=== PATIENT | female | born 1995 | race Caucasian/White ===

== ENCOUNTER → 2017-12-09 13:51 | Outpatient (CLI) | payer OTHER, SELFPAY ==
--- NOTE | 2017-12-09 13:54 | CT_ITS ---
CT head/brain wo con HISTORY: Severe headache with blurred vision ITS.REASON: blurry vison ORDERING PHYSICIAN: Jorge Moreno PATIENT AGE: 22 years COMPARISON: None TECHNIQUE: Axial images obtained without contrast. Brain and bone windows reviewed. All CT scans at the facility use one or more dose reduction, viz: automated exposure control, ma/kV adjustment per patient size (including targeted exams where dose is matched to indication, i.e. head), or iterative reconstruction technique. FINDINGS: No midline shift, mass effect, intracranial hemorrhage, hydrocephalus, or extra-axial fluid collection is evident. The calvarium has an unremarkable appearance. No mastoid effusion. No sinus air-fluid levels.. IMPRESSION: Negative CT head without contrast. No acute finding
== END ==
PROVIDERS: PCP Nurse Practitioner Family; Visit Provider Nurse Practitioner Family
DX: H53.8 Other visual disturbances (principal); R42 Dizziness and giddiness; R51 Headache
CPT/HCPCS: 70450

== ENCOUNTER → 2018-02-26 10:15 | Outpatient (CLI) | payer OTHER, SELFPAY ==
[2018-02-26 11:06] LABS: HCG,Quantitative 0 mIU/mL
== END ==
PROVIDERS: Visit Provider Specialist
DX: Z32.00 Encounter for pregnancy test, result unknown (principal)
CPT/HCPCS: 36415; 84702

== ENCOUNTER → 2018-03-20 12:49 | Outpatient (CLI) | payer OTHER, SELFPAY ==
--- NOTE | 2018-03-20 12:49 | CA_ITS ---
Venous Exam Indications: 729.5 Pain in limb. IMPRESSIONS 1. There is no evidence of significant Reflux. 2. No evidence of deep or superficial vein thrombosis involving the left lower extremity Left lower extremity venous duplex evaluation. Doppler flow study including spectral analysis, color and valderrama scale imaging. Location: Vascular laboratory. Patient status: Outpatient. CRITICAL FINDINGS - Reported to: HAI ECHEVERRIA - Read back and verified. - 03/20/18 - 1310 - NONE Tables: Venous flow and imaging: + +-------+ + Location Overall Flow properties + +-------+ + Left common femoral Patent Normal phasicity; spontaneous; normal augmentation; compressible + +-------+ + Left saphenofemoral junction Patent Compressible + +-------+ + Left profunda femoral Patent Compressible + +-------+ + Left femoral Patent Normal phasicity; spontaneous; normal augmentation; compressible + +-------+ + Left greater saphenous Patent Normal phasicity; spontaneous; normal augmentation; compressible + +-------+ + Left popliteal Patent Normal phasicity; spontaneous; normal augmentation; compressible + +-------+ + Left posterior tibial Patent Compressible + +-------+ + Left peroneal Patent Compressible + +-------+ + Left gastrocnemius Patent Compressible + +-------+ + Left soleal Patent Compressible + +-------+ +
--- NOTE | 2018-03-20 12:54 | XR_ITS ---
EXAM: XR lumbar spine 2-3V HISTORY: ITS.REASON: low back pain ORDERING PHYSICIAN: Jorge Moreno PATIENT AGE: 22 years COMPARISON: None FINDINGS: Normal alignment. There is minimal levocurvature and straightening of the thoracolumbar lordosis. No fracture or dislocation. No lytic or blastic change. No significant degenerative change. The disc spaces are preserved. IMPRESSION: Minimal levoscoliosis with straightening of lordosis which could be due to patient positioning or muscle spasm
== END ==
PROVIDERS: PCP Emergency Medicine; Visit Provider Nurse Practitioner Family
DX: M54.5 Low back pain (principal); M79.605 Pain in left leg
CPT/HCPCS: 72100; 93971

== ENCOUNTER → 2018-04-30 11:39 | Outpatient (CLI) | payer OTHER, SELFPAY ==
[2018-04-30 12:10] LABS: HCG,Quantitative 1 mIU/mL
== END ==
PROVIDERS: Visit Provider Specialist
DX: Z32.00 Encounter for pregnancy test, result unknown (principal)
CPT/HCPCS: 36415; 84702

== ENCOUNTER → 2018-07-14 12:39 | Outpatient (CLI) | payer OTHER, SELFPAY ==
[2018-07-14 13:54] LABS: HCG,Quantitative 6744 mIU/mL
== END ==
PROVIDERS: PCP Nurse Practitioner Family; Visit Provider Obstetrics & Gynecology Reproductive Endocrinology
DX: Z32.00 Encounter for pregnancy test, result unknown (principal)
CPT/HCPCS: 36415; 84702

== ENCOUNTER → 2019-10-07 16:57 | Outpatient (CLI) | payer OTHER, SELFPAY ==
[2019-10-07 17:30] LABS: Basophils % 0.6 % (0.1-2.0); Eosinophils # 0.1 K/mm3 (0.0-0.4); Eosinophils % 1.8 % (0.1-12.0); Hematocrit 38.7 % (37.0-47.0); Hemoglobin 12.9 g/dL (12.2-16.2); Lymphocytes % 41.4 % (10-50); Mean Corpuscular HGB Conc 33.4 g/dL (31.8-35.4); Mean Corpuscular Hemoglobin 30.1 pg (27.0-31.2); Mean Corpuscular Volume 90.1 fl (81-99); Mean Platelet Volume 9.1 fl (7.4-10.4); Monocytes # 0.3 K/mm3 (0.1-1.0); Monocytes % 6.1 % (1.7-9.3); Neutrophils # 2.4 K/mm3 (1.8-7.8); Neutrophils % 50.2 % (37.0-80.0); Platelet Count 307 K/mm3 (142-424); Red Blood Count 4.29 M/mm3 (4.20-5.40); Red Cell Distribution Width 12.8 % (11.5-17.5); White Blood Count 4.7 K/mm3 (4.8-10.8)
[2019-10-07 18:31] LABS: Alanine Aminotransferase 15 U/L (12-78); Albumin Level 4.7 g/dl (3.5-5.0); Albumin/Globulin Ratio 1.7 (1.1-1.8); Alkaline Phosphatase 68 U/L (38-126); Anion Gap 16.2 mEq/L (5-15); Aspartate Amino Transferase 29 U/L (14-36); Bilirubin,Total 0.6 mg/dl (0.2-1.3); Blood Urea Nitrogen 24 mg/dl (7-17); Calcium 9.5 mg/dl (8.4-10.2); Carbon Dioxide 26 mmol/L (22.0-30.0); Chloride 101 mmol/L (98-107); Chol/HDL Ratio 2.4 (1-3.5); Cholesterol 169 mg/dl (140-200); Estimated Glomerular Filt Rate 88 ml/min (>60); GFR (African American) 107 ML/MIN (>60); Globulin 2.7 g/dL (1.3-3.2); Glucose 89 mg/dl (74-100); HDL Cholesterol 71 mg/dl (40-60); Potassium 4.2 mmoL/L (3.5-5.1); Sodium 139 mmol/L (136-145); Total Protein,Serum 7.4 g/dl (6.3-8.2); Triglycerides 49 mg/dl (30-150); VLDL Cholesterol 10 mg/dL (0-40)
[2019-10-07 18:48] LABS: 25-OH Vitamin D, Total 52.7 ng/mL (30-100)
[2019-10-07 18:49] LABS: Direct LDL Cholesterol 91.06 mg/dL (100-129)
[2019-10-07 18:51] LABS: T4 (Thyroxine) 6.9 ug/dl (5.53-11.0)
[2019-10-07 19:02] LABS: Thyroid Stimulating Hormone 0.85 uIU/mL (0.465-4.68)
== END ==
PROVIDERS: Visit Provider Physician Assistant
DX: R51 Headache (principal)
CPT/HCPCS: 80053; 80061; 82306; 84436; 84443; 85025

== ENCOUNTER → 2021-03-21 12:35 | Outpatient (CLI) | payer OTHER, SELFPAY | PROVIDERS: Visit Provider Nurse Practitioner | DX: Z20.822 Contact with and (suspected) exposure to COVID-19 (principal) | CPT/HCPCS: C9803; U0003; U0005 ==

== ENCOUNTER → 2021-07-20 13:16 | Outpatient (CLI) | payer OTHER, SELFPAY ==
[2021-07-20 17:12] LABS: Alanine Aminotransferase 21 U/L (12-78); Albumin Level 4.7 g/dl (3.5-5.0); Albumin/Globulin Ratio 1.6 (1.1-1.8); Alkaline Phosphatase 97 U/L (38-126); Aspartate Amino Transferase 35 U/L (14-36); Bilirubin,Total 0.5 mg/dl (0.2-1.3); Blood Urea Nitrogen 14 mg/dl (7-17); Calcium 9.7 mg/dl (8.4-10.2); Carbon Dioxide 28 mmol/L (22.0-30.0); Chloride 102 mmol/L (98-107); Cholesterol 178 mg/dl (140-200); Estimated Glomerular Filt Rate 87 ml/min (>60); GFR (African American) 105 ML/MIN (>60); Glucose 95 mg/dl (74-100); HDL Cholesterol 59 mg/dl (40-60); Sodium 140 mmol/L (136-145); Total Protein,Serum 7.7 g/dl (6.3-8.2); Triglycerides 81 mg/dl (30-150); VLDL Cholesterol 16 mg/dL (0-40)
[2021-07-20 17:29] LABS: 25-OH Vitamin D, Total 44.2 ng/mL (30-100)
[2021-07-20 17:42] LABS: Thyroid Stimulating Hormone 0.71 uIU/mL (0.465-4.68)
[2021-07-20 17:45] LABS: Basophils # 0.1 K/mm3 (0-0.2); Basophils % 1.6 % (0.1-2.0); Eosinophils # 0.1 K/mm3 (0.0-0.4); Eosinophils % 1.7 % (0.1-12.0); Hematocrit 39.7 % (37.0-47.0); Hemoglobin 12.9 g/dL (12.2-16.2); Lymphocytes # 2.3 K/mm3 (0.7-4.5); Lymphocytes % 31.2 % (10-50); Mean Corpuscular HGB Conc 32.5 g/dL (31.8-35.4); Mean Corpuscular Hemoglobin 27.8 pg (27.0-31.2); Mean Corpuscular Volume 85.6 fl (81-99); Mean Platelet Volume 8.7 fl (7.4-10.4); Monocytes # 0.4 K/mm3 (0.1-1.0); Neutrophils # 4.4 K/mm3 (1.8-7.8); Neutrophils % 60.6 % (37.0-80.0); Platelet Count 403 K/mm3 (142-424); Red Blood Count 4.64 M/mm3 (4.20-5.40); Red Cell Distribution Width 13.8 % (11.5-17.5); White Blood Count 7.3 K/mm3 (4.8-10.8)
== END ==
PROVIDERS: PCP Nurse Practitioner Family; Visit Provider Nurse Practitioner Family
DX: R60.9 Edema, unspecified (principal); E66.3 Overweight; Z68.32 Body mass index [BMI] 32.0-32.9, adult
CPT/HCPCS: 80053; 80061; 82306; 84436; 84443; 85025

== ENCOUNTER → 2021-07-24 08:45 | Outpatient (CLI) | payer OTHER, SELFPAY ==
--- NOTE | 2021-07-24 08:47 | CA_ITS ---
APPROVED REPORT EXAM: Comprehensive 2D, Doppler, and color-flow Echocardiogram Cancer Genetic Counselor: Toyin Perez RT(R) Ht: 5 ft 5 in Wt: 193lbs BSA: 1.95 BP: 136/86 mmHg Indications: SOA, edema in upper and lower extremities since of her son 8 months ago, HTN post . 2D Dimensions LVOT 1.98 cm (M/F) 1.5-2.5 LVEF (Glasgow's) 54.20 % F: 54 - 74 LV Volume 102.50 mL F: 46 - 106 LV Volume Index 52.56 mL/m2 F: 29 - 61 LA Volume 23.00 mL LA Volume Index 11.79 mL/m2 (M/F) 16-34 M-Mode Dimensions RVDd 2.47 cm (0.9-2.6) LA Diam 2.69 cm (1.9-4.0) LVDd 4.37 cm (3.5-5.7) Ao Diam 2.51 cm (2.0-3.7) LVDs 3.22 cm (3.5-5.7) IVSd 0.68 cm (0.6-1.1) PWd 0.68 cm (0.6-1.1) EF (Teich) 51.80% FS 26.30% EDV (Teich) 86.30 mL TAPSE 2.00 (<1.7) ESV (Teich) 41.60 mL LV Diastology E Decel Time 200.00 (160-240 msec) E/A Ratio 1.3 MED E' 12.40 (< 7 cm/sec) E'/MED E' Ratio 5.88 (>14) LAT E' 16.60 (<10 cm/sec) E/LAT E' Ratio 4.39 (>14) Mitral Valve MV E Max Bryon. 73.00 (40-130 cm/s) MV A Velocity 56.00 (40-130 cm/s) E/A Ratio 1.30 MV Decel. Time 200.00 (160-240 ms) MV PHT 59.00 ms Tricuspid Valve TR P. Velocity 244.00 cm/s RAP Estimate 10.00 mmHg RVSP 33.80 mmHg Left Ventricle Left atrium is normal size, left ventricle is normal size, there is no concentric left ventricular hypertrophy, estimated ejection fraction 55% with no regional wall motion abnormality, diastolic parameters are within normal range. Right Ventricle Right atrium and right ventricle are normal size and contractility. Aortic Valve Aortic valve is grossly normal, there is no aortic stenosis or aortic insufficiency. Mitral Valve Mitral valve grossly normal, there is trace mitral regurgitation. Tricuspid Valve Tricuspid grossly normal, there is trace tricuspid regurgitation, tricuspid regurgitation jet velocity is inadequate for calculation of the right ventricular systolic pressure. Pulmonic Valve Pulmonic valve is poorly visualized. Great Vessels Aortic root is normal size. Inferior vena cava is normal size with normal inspiratory collapse. Pericardium No significant pericardial effusion noted. Conclusion 1. Normal left ventricular size, preserved left ventricular systolic function, estimated ejection fraction 55% with no regional wall motion abnormality, diastolic parameters are within normal range. 2. Trace mitral and tricuspid regurgitation. 3. No significant pericardial effusion. 4. Inferior vena cava normal size with normal inspiratory collapse. Electronically signed by : Nito Fernandez MD 07/24/2021 20:37:12
== END ==
PROVIDERS: PCP Nurse Practitioner Family; Visit Provider Nurse Practitioner Family
DX: R06.02 Shortness of breath (principal)
CPT/HCPCS: 93306

== ENCOUNTER 2021-09-16 22:23 | Emergency (ER) | payer OTHER, SELFPAY ==
[2021-09-16 22:23] VITALS: BP 144/87; PULSE 97; RESP 19; TEMP 36.9; O2SAT 100; BMI 31.9
[2021-09-17 00:34] LABS: Basophils # 0.2 K/mm3 (0-0.2); Basophils % 1.9 % (0.1-2.0); Eosinophils # 0.1 K/mm3 (0.0-0.4); Eosinophils % 0.5 % (0.1-12.0); Hematocrit 38.4 % (37.0-47.0); Hemoglobin 12.1 g/dL (12.2-16.2); Lymphocytes # 2.5 K/mm3 (0.7-4.5); Lymphocytes % 23.1 % (10-50); Mean Corpuscular HGB Conc 31.6 g/dL (31.8-35.4); Mean Corpuscular Hemoglobin 27.6 pg (27.0-31.2); Mean Corpuscular Volume 87.4 fl (81-99); Mean Platelet Volume 8.4 fl (7.4-10.4); Monocytes # 0.6 K/mm3 (0.1-1.0); Monocytes % 5.6 % (1.7-9.3); Neutrophils # 7.5 K/mm3 (1.8-7.8); Platelet Count 334 K/mm3 (142-424); Red Blood Count 4.39 M/mm3 (4.20-5.40); Red Cell Distribution Width 13.9 % (11.5-17.5); White Blood Count 10.9 K/mm3 (4.8-10.8)
[2021-09-17 00:38] LABS: Alanine Aminotransferase 21 U/L (12-78); Albumin Level 4.5 g/dl (3.5-5.0); Albumin/Globulin Ratio 1.5 (1.1-1.8); Alkaline Phosphatase 74 U/L (38-126); Anion Gap 13.7 mEq/L (5-15); Aspartate Amino Transferase 33 U/L (14-36); Blood Urea Nitrogen 21 mg/dl (7-17); Calcium 9.7 mg/dl (8.4-10.2); Carbon Dioxide 29 mmol/L (22.0-30.0); Chloride 101 mmol/L (98-107); Creatinine Clearance Estimated 147 mL/min (50-200); Estimated Glomerular Filt Rate 87 ml/min (>60); GFR (African American) 105 ML/MIN (>60); Globulin 3.1 g/dL (1.3-3.2); Glucose 88 mg/dl (74-100); Potassium 3.7 mmoL/L (3.5-5.1); Sodium 140 mmol/L (136-145); Total Protein,Serum 7.6 g/dl (6.3-8.2)
[2021-09-17 00:41] LABS: Bilirubin,Total < 0.1 mg/dl (0.2-1.3); HCG Qualitative, Serum Negative (Negative)
[2021-09-17 00:48] LABS: Appearance,Urine CLOUDY (Clear); Bilirubin,Urine Negative (Negative); Blood, Urine 3+ (Negative); Color,Urine YELLOW (Yellow); Glucose,Urine (UA) Negative (Negative); Ketones,Urine Negative (Negative); Leukocyte Esterase,Urine Negative (Negative); Nitrate,Urine Negative (Negative); Protein,Urine Negative (Negative); Specific Gravity, Urine >= 1.030 (1.005-1.030); Urobilinogen,Urine 0.2 EU/dl (0.2)
[2021-09-17 00:50] LABS: Microscopic, Urine URINE MICROSCOPIC (MICROSCOPIC)
[2021-09-17 00:51] LABS: RBC,Urine TNTC #/hpf (0-3)
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
[2021-09-17 01:14] LABS: HCG,Quantitative < 2 mIU/ml (0-5.42)
[2021-09-17 01:19] VITALS: BP 133/71; PULSE 92; RESP 16; TEMP 36.7; O2SAT 99
== END 2021-09-17 01:20 | disposition home or self-care (01) ==
PROVIDERS: Emergency Provider Emergency Medicine; PCP Emergency Medicine
DX: N93.8 Other specified abnormal uterine and vaginal bleeding (principal)
CPT/HCPCS: 80053; 81001; 81025; 84702; 84703; 85025; 86900; 86901; 99283

== ENCOUNTER 2023-12-24 21:52 | Emergency (ER) | payer OTHER, SELFPAY ==
[2023-12-24 21:53] VITALS: BP 144/87; PULSE 128; RESP 30; TEMP 36.8; O2SAT 100; BMI 25.0
[2023-12-24 22:00] VITALS: BP 144/87; PULSE 97; RESP 10; O2SAT 100
--- NOTE | 2023-12-24 22:08 | XR_ITS ---
PROCEDURE INFORMATION: Exam: XR Chest Exam date and time: 12/24/2023 10:15 PM Age: 28 years old Clinical indication: Pain; Chest pressure; Additional info: Cp SOA TECHNIQUE: Imaging protocol: Radiologic exam of the chest. Views: 1 view. COMPARISON: No relevant prior studies available. FINDINGS: Lungs: Unremarkable. No consolidation. Pleural spaces: Unremarkable. No pleural effusion. No pneumothorax. Heart/Mediastinum: Unremarkable. No cardiomegaly. Bones/joints: Unremarkable. IMPRESSION: No acute findings.
[2023-12-24] MEDS: LORazepam 0.5MG TABLET 0.5 MG PO (22:24)
[2023-12-24 22:25] LABS: Basophils # 0.1 K/mm3 (0-0.2); Basophils % 0.4 % (0.1-2.0); Eosinophils # 0.1 K/mm3 (0.0-0.4); Eosinophils % 0.4 % (0.1-12.0); Hematocrit 37.2 % (37.0-47.0); Hemoglobin 13.1 g/dL (12.2-16.2); Lymphocytes % 23.5 % (10-50); Mean Corpuscular HGB Conc 35.3 g/dL (31.8-35.4); Mean Corpuscular Hemoglobin 29.9 pg (27.0-31.2); Mean Corpuscular Volume 84.9 fl (81-99); Mean Platelet Volume 8.2 fl (7.4-10.4); Monocytes # 0.7 K/mm3 (0.1-1.0); Monocytes % 5.2 % (1.7-9.3); Neutrophils # 8.9 K/mm3 (1.8-7.8); Neutrophils % 70.3 % (37.0-80.0); Platelet Count 391 K/mm3 (142-424); Red Blood Count 4.38 M/mm3 (4.20-5.40); Red Cell Distribution Width 13.5 % (11.5-17.5); White Blood Count 12.7 K/mm3 (4.8-10.8)
[2023-12-24 22:27] VITALS: PULSE 87
[2023-12-24 22:29] LABS: VBG Base Excess 1.8 mmol/L (-2.4-2.3); VBG HCO3 25.7 mmol/L (23-30); VBG Oxygen Saturation 72.8 % (50-70); VBG PCO2 37.7 mmol/L (35-51); VBG PH 7.45 mmol/L (7.31-7.41); VBG PO2 36.3 mmol/L (28-40); VBG Total CO2 26.9 mmol/L (23-27)
[2023-12-24 22:30] VITALS: BP 120/73; PULSE 87; RESP 10; O2SAT 96
[2023-12-24 22:30] LABS: Lactate Venous 2.2 mmol/L (0.4-2.0)
[2023-12-24 22:31] LABS: Alanine Aminotransferase 24 U/L (12-78); Albumin Level 4.9 g/dl (3.5-5.0); Albumin/Globulin Ratio 1.5 (1.1-1.8); Alkaline Phosphatase 69 U/L (38-126); Anion Gap 13.4 mEq/L (5-15); Aspartate Amino Transferase 30 U/L (14-36); Bilirubin,Total 0.6 mg/dl (0.2-1.3); Blood Urea Nitrogen 14 mg/dl (7-17); Calcium 9.6 mg/dl (8.4-10.2); Carbon Dioxide 26 mmol/L (22.0-30.0); Chloride 103 mmol/L (98-107); Creatinine Clearance Estimated 90 mL/min (50-200); Estimated Glomerular Filt Rate 66 ml/min (>60); GFR (African American) 80 ML/MIN (>60); Globulin 3.3 g/dL (1.3-3.2); Glucose 102 mg/dl (74-100); Magnesium 1.9 mg/dl (1.6-2.3); Potassium 3.4 mmoL/L (3.5-5.1); Sodium 139 mmol/L (136-145); Total Protein,Serum 8.2 g/dl (6.3-8.2)
[2023-12-24 22:37] LABS: D-Dimer 0.84 ug/mL (0.0-0.5)
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
[2023-12-24 22:51] LABS: Troponin I < 0.01 ng/ml (0.00-0.034)
[2023-12-24 23:00] VITALS: BP 115/67; PULSE 88; RESP 16; O2SAT 98
[2023-12-24 23:05] VITALS: BP 115/67; PULSE 89; RESP 16; TEMP 36.8; O2SAT 96
== END 2023-12-24 23:08 | disposition home or self-care (01) ==
PROVIDERS: Emergency Provider Emergency Medicine; PCP Internal Medicine
DX: F41.0 Panic disorder [episodic paroxysmal anxiety] (principal); R07.9 Chest pain, unspecified
CPT/HCPCS: 71045; 80053; 82803; 83735; 84484; 85025; 85378; 93005; 99284

== ENCOUNTER 2024-05-24 18:07 | Emergency (ER) | payer SELFPAY ==
[2024-05-24 18:11] VITALS: BP 118/71; PULSE 95; RESP 18; TEMP 37; O2SAT 100; BMI 32.9
--- NOTE | 2024-05-24 18:17 | HMH.EDGENADL ---
Discharge Plan Disposition Patient Disposition: Home, Self-Care Condition: Good Prescriptions Prescriptions: New ondansetron 4 mg tablet,disintegrating 4 mg PO Q6H PRN (Reason: nausea and vomiting) Qty: 10 0RF oseltamivir [Tamiflu] 75 mg capsule 75 mg PO BID 5 Days Qty: 10 0RF No Action valacyclovir [Valtrex] 500 mg tablet 500 mg PO BID 3 Days Qty: 6 0RF Vraylar 1.5 mg capsule 1.5 mg PO DAILY fluoxetine [Prozac] 40 mg capsule 80 mg PO DAILY Qty: 60 4RF loratadine 10 MG tablet 10 mg PO DAILY Referrals Follow up/Referrals: Juliocesar Diaz [Primary Care Provider] - See instructions Activity Restrictions/Add. Instructions Additional Instructions/Restrictions: I have sent both Tamiflu and nausea medicine into your pharmacy. If you have any worsening signs or symptoms follow-up with your PCP or return to the ER as needed. I recommended continue taking Tylenol alternating with Motrin for symptoms. Clinical Impressions Clinical Impression: Influenza B Stand Alone Forms Stand Alone Forms: Work/School Release Instructions Patient Instructions: DI for Influenza -- Adult Print Language Print Language: Libyan Discharge ED Provider: Mc [facility] Adult HPI <SARA Churchill - Last Filed: 05/24/24 20:10> General Chief complaint: Upper Respiratory Infection Stated complaint: cough,sore throat,drainage,vomiting Time Seen by Provider: 05/24/24 18:13 Mode of Arrival: Ambulatory Source of Information: Patient Description of Symptoms (Recalled from ER Triage Doc. by RN): Pt presents for evaluation of coughing, runny nose, diarrhea, headache. Pt states she has had a decreased appetite and has not ate much since History of Present Illness HPI narrative: Patient presents for evaluation of cough sore throat runny nose headache. Symptoms began on Saturday and have progressed over the weekend. Patient reports that she has had a decreased appetite but is able to drink normally. She has normal bowel movements no shortness of breath fever chills hemoptysis hematochezia melena. Related Data Home Medications ?Medication ?Instructions ?Recorded ?Confirmed loratadine 10 mg tablet 10 mg PO DAILY Allergy symptoms 09/16/21 03/19/22 cariprazine 1.5 mg capsule 1.5 mg PO DAILY 05/14/22 (Vraylar) Previous Rx's ?Medication ?Instructions ?Recorded valacyclovir 500 mg tablet 500 mg PO BID 3 days #6 tabs 10/23/21 (Valtrex) fluoxetine 40 mg capsule (Prozac) 80 mg (2 x 40 mg) PO DAILY #60 caps 06/13/22 ondansetron 4 mg disintegrating 4 mg PO Q6H PRN nausea and 05/24/24 tablet vomiting #10 tabs oseltamivir 75 mg capsule (Tamiflu) 75 mg PO BID 5 days #10 caps 05/24/24 Allergies Allergy/AdvReac Type Severity Reaction Status Date / Time Penicillins Allergy Mild Verified 03/19/22 09:17 [facility] <SARA Churchill - Last Filed: 05/24/24 20:10> [facility] Disclaimer: The information contained in this section may have been updated after the patient was seen, as this information can be updated by other users. Medical History (Updated 05/24/24 @ 18:52 by SARA Churchill) Bipolar II disorder Social History Smoking Status: Never smoker alcohol intake: never substance use type: denies use current occupational status: unemployed Travel in the last 8 weeks: None household members: spouse housing: house number of children: 1 Have you lived/traveled outside [place] in past 30 days?: No Contact w/someone who lives/traveled outside [place] past 30 days?: No Exposure to someone with infectious disease in past 14 days?: No Do you have a fever (greater than 100.4 F or 38 C)?: No Have you tested positive for COVID-19: No Exposed to someone with COVID-19 in past 14 days?: No Do you have a sore throat?: Yes Do you have a cough?: Yes Do you have any weakness?: No Do you have any diarrhea?: No Are you experiencing any unusual bleeding?: No Do you have any muscle aches/pain?: No Do you have any abdominal pain?: No Are you experiencing loss of taste or smell?: No Other Medical History Have you received the Flu Vaccine for this season: No Have you received the Pneumonia Vaccine: No <SARA Churchill - Last Filed: 05/24/24 20:10> ROS Obtained: Yes Systems reviewed as appropriate & no additional complaints except as documented Physical Exam <SARA Churchill - Last Filed: 05/24/24 20:10> General General appearance: alert and in no apparent distress Respiratory Respiratory exam: Present normal lung sounds bilaterally Cardiovascular Cardiovascular exam: Present regular rate Neurological Exam Neurological exam: Present alert and oriented X3 Medical Decision Making <SARA Churchill - Last Filed: 05/24/24 20:10> Medical Records Screening: Per USPSTF and CDC recommendations, given the prevalence of disease in our region, it is our hospital?s policy to screen for HIV and viral Hepatitis for all patients aged 18 and over and those with ongoing risk factors. Jelani Inquiry Pt receiving controlled substance: No Vital Signs: 05/24/24 18:11 05/24/24 19:02 Temperature 98.6 F 98.6 F Temperature Source Oral Oral Pulse Rate 80 Pulse Rate [Right] 95 H Respiratory Rate 18 16 Blood Pressure 116/70 Blood Pressure [Right Arm] 118/71 Blood Pressure Mean [Right Arm] 86 Blood Pressure Source Automatic Cuff Blood Pressure Source [Right Arm] Automatic Cuff Blood Pressure Position [Right Arm] Sitting 02 Sat by Pulse Oximetry 100 Oxygen Delivery Method Room Air Room Air Lab Data Lab results reviewed: Yes I reviewed the patient's lab results. Lab Results 05/24/24 18:14: SARS-CoV-2 (PCR) Not detected, Influenza A Untype (PCR) Not detected, Influenza Type B (PCR) Detected A Orders (Tests/Meds): ED MEDICATIONS Discontinued Medications Generic Name Dose Route Start Last Admin Trade Name Freq PRN Reason Stop Dose Admin Ondansetron HCl 4 mg 05/24/24 18:25 05/24/24 18:33 Ondansetron 4mg Odt SL 05/24/24 18:26 4 mg ONCE ONE Administration ORDERS Category Date Time Status Rapid PCR Covid and Flu A/B Stat Lab 05/24/24 18:14 Completed Medical Decision Narrative: In summary patient is a 26-year-old female who presents to the emergency department for evaluation of cough sore throat headache. Patient is hemodynamically stable upon arrival, afebrile. Physical exam is remarkable for normal posterior pharynx normal moist mucosa bilaterally normal tympanic membranes breath sounds clear and equal bilaterally to the bases with adventitious sounds abdomen soft nontender no rebound no guarding no rigidity normal bowel sounds. Differential diagnosis includes upper or lower respiratory tract infection. Initial workup will be conducted with COVID and flu swabs. Initial interventions include Tylenol ibuprofen Zofran. Initial workup reviewed by me shows that she is influenza B positive. Upon repeat evaluation patient is tolerating oral intake after initial intervention. Given this patient is appropriate discharge with a prescription for Zofran recommendations continue taking Tylenol alternating with Motrin and symptomatic care and treatment. <Mc Joseph MD - Last Filed: 05/24/24 20:44> Vital Signs: 05/24/24 18:11 05/24/24 19:02 Temperature 98.6 F 98.6 F Temperature Source Oral Oral Pulse Rate 80 Pulse Rate [Right] 95 H Respiratory Rate 18 16 Blood Pressure 116/70 Blood Pressure [Right Arm] 118/71 Blood Pressure Mean [Right Arm] 86 Blood Pressure Source Automatic Cuff Blood Pressure Source [Right Arm] Automatic Cuff Blood Pressure Position [Right Arm] Sitting 02 Sat by Pulse Oximetry 100 Oxygen Delivery Method Room Air Room Air Lab Data Lab Results 05/24/24 18:14: SARS-CoV-2 (PCR) Not detected, Influenza A Untype (PCR) Not detected, Influenza Type B (PCR) Detected A Orders (Tests/Meds): ED MEDICATIONS Discontinued Medications Generic Name Dose Route Start Last Admin Trade Name Freq PRN Reason Stop Dose Admin Ondansetron HCl 4 mg 05/24/24 18:25 05/24/24 18:33 Ondansetron 4mg Odt SL 05/24/24 18:26 4 mg ONCE ONE Administration ORDERS Category Date Time Status Rapid PCR Covid and Flu A/B Stat Lab 05/24/24 18:14 Completed Medical Decision Narrative: In summary patient is a 26-year-old female who presents to the emergency department for evaluation of cough sore throat headache. Patient is hemodynamically stable upon arrival, afebrile. Physical exam is remarkable for normal posterior pharynx normal moist mucosa bilaterally normal tympanic membranes breath sounds clear and equal bilaterally to the bases with adventitious sounds abdomen soft nontender no rebound no guarding no rigidity normal bowel sounds. Differential diagnosis includes upper or lower respiratory tract infection. Initial workup will be conducted with COVID and flu swabs. Initial interventions include Tylenol ibuprofen Zofran. Initial workup reviewed by me shows that she is influenza B positive. Upon repeat evaluation patient is tolerating oral intake after initial intervention. Given this patient is appropriate discharge with a prescription for Zofran recommendations continue taking Tylenol alternating with Motrin and symptomatic care and treatment. I was consulted by the MARIANO, and we discussed the complexity of the problems being addressed. I approved the treatment and management plan for this patient's care in the Emergency Department, thus performing a substantive portion of the medical decision making. Mc Joseph MD Critical Care <SARA Churchill - Last Filed: 05/24/24 20:10> Critical Care Time Critical Care Time: No
[2024-05-24 18:20] LABS: Coronavirus 19, PCR Not Detected (NotDetected); Influenza A, PCR Not Detected (NotDetected)
[2024-05-24] MEDS: ONDANSETRON 4MG ODT 4 MG SL (18:33)
--- NOTE | 2024-05-24 18:38 | PC.NURSE ---
gave water, ice chips, and crackers for pt to attempt PO challenge
[2024-05-24 18:44] LABS: Influenza B, PCR Detected (NotDetected)
[2024-05-24 19:02] VITALS: BP 116/70; PULSE 80; RESP 16; TEMP 37; O2SAT 98
== END 2024-05-24 19:03 | disposition home or self-care (01) ==
PROVIDERS: Emergency Provider Emergency Medicine; PCP Internal Medicine
DX: J10.1 Influenza due to other identified influenza virus with other respiratory manifestations (principal); R05.9 Cough, unspecified; R09.89 Other specified symptoms and signs involving the circulatory and respiratory systems; R19.7 Diarrhea, unspecified; R51.9 Headache, unspecified; R63.8 Other symptoms and signs concerning food and fluid intake; Z11.52 Encounter for screening for COVID-19
CPT/HCPCS: 87636; 99283; Q0162

== ENCOUNTER 2024-09-09 23:30 | Observation (INO) | payer SELFPAY ==
--- NOTE | 2024-09-09 23:29 | ECG_ITS ---
APPROVED REPORT Exam: Resting ECG HR:103 bpm ECG Measurements Heart Rate 103 AXES UT 150 P -40 QRSd 90 QRS -40 QT 358 T -77 QTc 417 Conclusion SINUS TACHYCARDIA MODERATE VOLTAGE CRITERIA FOR LVH, CONSIDER NORMAL VARIANT [MEETS CRITERIA IN ONE OF: R(aVL), S(V1), R(V5), R(V5/V6)+S(V1)] INFERIOR MYOCARDIAL INFARCTION , OF INDETERMINATE AGE [40+ ms Q WAVE AND/OR ST/T ABNORMALITY IN II/aVF] No STEMI, suspect inappropriate lead placement Electronically signed by : ANALY LIZ, 09/10/2024 06:35:58
[2024-09-09 23:32] VITALS: BP 173/98; PULSE 103; PULSE 112; RESP 18; TEMP 36.6; O2SAT 99; BMI 32.2
--- NOTE | 2024-09-09 23:32 | CT_ITS ---
PROCEDURE INFORMATION: Exam: CTA Chest With Contrast Exam date and time: 09/10/2024 12:15 AM Age: 29 years old Clinical indication: Pain; Chest pressure; Additional info: Cp 1h TECHNIQUE: Imaging protocol: Computed tomographic angiography of the chest with contrast. Exam focused on the arteries. 3D rendering (Not supervised by radiologist): MIP and/or 3D reconstructed images were created by the technologist. Radiation optimization: All CT scans at this facility use at least one of these dose optimization techniques: automated exposure control; mA and/or kV adjustment per patient size (includes targeted exams where dose is matched to clinical indication); or iterative reconstruction. Contrast material: ISOVUE; Contrast volume: 70 ml; Contrast route: INTRAVENOUS (IV); COMPARISON: CR XR CHEST PORTABLE 09/10/2024 12:08 AM FINDINGS: Pulmonary arteries: No pulmonary emboli. Aorta: Unremarkable. No aortic aneurysm. No aortic dissection. Lungs: Calcified left lower lobar granuloma. Otherwise, clear lungs. Pleural spaces: Unremarkable. No pneumothorax. No pleural effusion. Heart: Unremarkable. No cardiomegaly. No pericardial effusion. Lymph nodes: Unremarkable. No enlarged lymph nodes. Bones/joints: Unremarkable. No acute fracture. Soft tissues: Unremarkable. IMPRESSION: No acute findings identified.
--- NOTE | 2024-09-09 23:33 | XR_ITS ---
PROCEDURE INFORMATION: Exam: XR Chest Exam date and time: 09/10/2024 12:08 AM Age: 29 years old Clinical indication: Pain; Chest pressure; Additional info: Cp TECHNIQUE: Imaging protocol: Radiologic exam of the chest. Views: 1 view. COMPARISON: CR XR CHEST PORTABLE 12/24/2023 10:15 PM FINDINGS: Lungs: Unremarkable. No consolidation. Pleural spaces: Unremarkable. No pleural effusion. No pneumothorax. Heart/Mediastinum: Unremarkable. No cardiomegaly. Bones/joints: Unremarkable. IMPRESSION: No acute findings.
[2024-09-09 23:40] LABS: Hematocrit 36.5 % (37.0-47.0); Hemoglobin 11.5 g/dL (12.2-16.2); Immature Granulocytes % 0.3 %; Mean Corpuscular HGB Conc 31.5 g/dL (31.8-35.4); Mean Corpuscular Hemoglobin 24.8 pg (27.0-31.2); Mean Corpuscular Volume 78.7 fl (81-99); Nucleated Red Blood Cells % 0 %; Platelet Count 382 K/mm3 (142-424); Red Blood Count 4.64 M/mm3 (4.20-5.40); Red Cell Distribution Width-SD 60.4 fL; White Blood Count 10.5 K/mm3 (4.8-10.8)
[2024-09-09 23:45] VITALS: BP 158/95; PULSE 93; O2SAT 95
[2024-09-09 23:45] LABS: Albumin Level 5.0 g/dl (3.5-5.0); Chloride 97 mmol/L (98-107); Potassium 3.8 mmoL/L (3.5-5.1); Sodium 138 mmol/L (136-145)
[2024-09-09 23:46] LABS: Lactate Venous 1.3 mmol/L (0.4-2.0); VBG HCO3 23.3 mmol/L (23-30); VBG PCO2 40.7 mmol/L (35-51); VBG PH 7.38 mmol/L (7.31-7.41); VBG PO2 56.8 mmol/L (28-40)
[2024-09-09] MEDS: NITROGLYCERIN 0.4MG SL TABLET 0.4 MG SL (23:46)
[2024-09-09] MEDS: ONDANSETRON 4MG/2ML VIAL 4 MG IV (23:46)
[2024-09-09] MEDS: ASPIRIN 81MG CHEWABLE TABLET 324 MG PO (23:46)
[2024-09-09] MEDS: MORPHINE 4MG/ML SYRINGE 4 MG IV (23:46)
[2024-09-09 23:48] LABS: Alanine Aminotransferase 37 U/L (12-78); Albumin/Globulin Ratio 1.4 (1.1-1.8); Alkaline Phosphatase 73 U/L (38-126); Anion Gap 15.8 mEq/L (5-15); Aspartate Amino Transferase 48 U/L (14-36); Bilirubin,Total 0.5 mg/dl (0.2-1.3); Blood Urea Nitrogen 12 mg/dl (7-17); Calcium 10.0 mg/dl (8.4-10.2); Carbon Dioxide 29 mmol/L (22.0-30.0); Creatinine Clearance Estimated 124 mL/min (50-200); Creatinine,Serum 0.90 mg/dl (0.52-1.04); Estimated Glomerular Filt Rate 74 ml/min (>60); GFR (African American) 90 ML/MIN (>60); Globulin 3.7 g/dL (1.3-3.2); Glucose 95 mg/dl (74-100); Total Protein,Serum 8.7 g/dl (6.3-8.2)
--- OUTSIDE RECORDS SUMMARY | 2024-09-09 23:52 | XMS_ITS | Data Portability ---
Author Organization [place] - [facility] - [place] & ANNIE Lee ADMIN Address [address] [place] [id number] Assessment Encounter Date Assessment Date Assessment LastModified by Organization Details LastModified Time 03/19/2023 03/19/2023 Diagnosis Rash allergic reaction Patient was instructed to take/apply medicine as prescribed Patient understands risk and benefits of steriods and the patient opts to take the medicine for symptoms relief cool compresses Benadryl as needed for itching Follow up with any worsening symptoms [email or web address] Not available 03/19/2023 13:23:08 07/09/2023 07/09/2023 Diagnosis Strep Pharyngitis Patient was instructed to take and complete antibiotic as prescribed Tylenol/Motrin as needed change toothbrush in 2-3 days gargle warms salt water patient/parent understands instructions follow up with worsening symptoms or concerns [email or web address] Not available 07/09/2023 13:24:06 08/01/2023 08/01/2023 Patient was instructed on the diagnosis, Drink plenty of fluids. Take antibiotics as prescribed. May add probiotics to help prevent a yeast infection. If symptoms do not improve in the next 2-3 days, call or follow up as you may need a change in treatment plan. If fever, severe pain (especially in the flank), vomiting, or other new or worsening sx develop, seek attention immediately. [email or web address] Not available 08/01/2023 14:09:47 09/13/2023 09/13/2023 Will cover for GC/Chlamydia as per recommendations while pending tests. Will also cover for UTI. Advised retesting in about 6 weeks if test is positive. [email or web address] Not available 09/13/2023 17:43:59 Plan of Treatment Reminders Order Date Submit Date Provider Last Modified By Organization Details Last Modified Time Details Appointments None recorded. Lab infectious disease panel [address] [facility], [address], [place], [address], 4 10:44:12 urinalysis , dipstick 2023 024 [email or web address] [facility], [address], [place], [address], Ph [phone] 4 17:21:26 culture, urine 2023 024 [place] [facility], [address], [address], [place], [address], 4 06:18:10 urinalysis , dipstick 2023 024 [email or web address] 8 [facility], [address], [place], [address], Ph [phone] 4 14:09:40 rapid strep group A, throat 2023 024 [facility], [address], [place], [address], Ph [phone] 4 13:10:18 rapid SARS CoV 2 Ag, QL IA, respirator y specimen 2023 024 [facility], [address], [place], [address], Ph [phone] 4 13:10:35 rapid flu (A+B) 2023 024 [facility], [address], [place], [address], Ph [phone] 4 13:10:58 rapid SARS CoV 2 Ag, QL IA, respirator y specimen 2023 024 [email or web address] Not available 13:43:54 Referral None recorded. Procedures None recorded. Surgeries None recorded. Imaging None recorded. Medication Orders ceftriaxon e 500 mg solution for injection 2023 024 [email or web address] Not available 4 07:13:00 doxycyclin e monohydrat e 100 mg tablet 2023 024 [facility][id number], [address], [id number], 4 17:38:41 Bactrim DS 800 mg-160 mg tablet 2023 024 [facility] #[id number], [address], [id number], 4 17:38:44 Pyridium 200 mg tablet 2023 024 [facility] #[id number], [address], [id number], 4 17:38:42 Macrobid 100 mg capsule 2023 024 [facility]2332, [address] [place] [address], [address], 4 14:10:45 Pyridium 200 mg tablet 2023 024 [facility], [address] [place] [address], [address], 4 14:10:45 azithromyc in 500 mg tablet 2023 024 [email or web address] [id number] [facility] #2332, [address] [place] [address], [address], 4 13:24:07 ondansetro n 4 mg disintegra ting tablet 2023 024 [facility]2332, [address] [place], [address], 4 13:23:59 prednisone 10 mg tablets in a dose pack 2023 024 [facility], [address] [place], [address], 4 13:22:47 triamcinol one acetonide 0.1 % topical cream 2023 024 [facility], [address] [place], [address], 4 13:22:47 Celestone Soluspan 6 mg/mL suspension for injection 2023 024 [email or web address] [facility] [address] [place], [address], 4 13:30:04 Patient TargetsNo targets recorded. Patient InstructionsNo instructions recorded. Reason for Referral None Reported. Results Created Date Observation Date Name Description Value Unit Range Abnormal Flag Note LastModifiedBy Organization Detail LastModifiedTime 04/08/19 24 04/08/2023 rapid SARS CoV 2 Ag, QL IA, respi rator y speci men rapid SARS CoV 2 Ag, QL IA, respiratory specimen negati ve Not Available [facility] [address], [place], [address], 04/08/2023 13:06:11 07/09/19 24 07/09/2023 rapid flu (A+B) Flu A negati ve Not Available [facility] [address] [facility] [address], [place], [address], Ph [phone] 07/09/2023 12:52:47 07/09/19 24 07/09/2023 rapid flu (A+B) Flu B negati ve Not Available [facility] [address] [facility] [address], [place], [address], Ph [phone] 07/09/2023 12:52:47 07/09/19 24 07/09/2023 rapid SARS CoV 2 Ag, QL IA, respi rator y speci men rapid SARS CoV 2 Ag, QL IA, respiratory specimen negati ve Not Available [facility] [address] [facility] [address], [place], [address], Ph [phone] 07/09/2023 12:52:38 07/09/19 24 07/09/2023 rapid strep group A, throa t Strep positi ve Not Available [facility] [address] [facility] [address], [place], [address], Ph [phone] 07/09/2023 12:52:22 08/01/19 24 08/03/2023 URINE CULTU RE, ROUTI NE urine culture, routine FINAL REPORT Not Available [facility] ([facility]) [address] [place], [address], 08/03/2023 06:18:10 08/01/19 24 08/03/2023 URINE CULTU RE, ROUTI NE result 1 NO GROWTH Not Available [facility] ([facility]) [address] [facility], [place], [address], 08/03/2023 06:18:10 08/01/19 24 08/01/2023 urina lysis , dipst ick Leukocytes (reference range) modera te Not Available [facility] [address] [facility] [address], [place], [address], Ph [phone] 08/01/2023 13:54:29 08/01/19 24 08/01/2023 urina lysis , dipst ick Nitrite (reference range:) negati ve Not Available [facility] [address] [facility] [address], [place], [address], Ph [phone] 08/01/2023 13:54:29 08/01/19 24 08/01/2023 urina lysis , dipst ick Urobilinogen (reference range) 4 Not Available [facility] [address] [facility] [address], [place], [address], Ph [phone] 08/01/2023 13:54:29 08/01/19 24 08/01/2023 urina lysis , dipst ick Protein (reference range) negati ve Not Available [facility] [address] [facility] [address], [place], [address], Ph [phone] 08/01/2023 13:54:29 08/01/19 24 08/01/2023 urina lysis , dipst ick pH (reference range 5-8.5) 6.0 Not Available [facility] [address] [facility] [address], [place], [address], Ph [phone] 08/01/2023 13:54:29 08/01/19 24 08/01/2023 urina lysis , dipst ick Blood (reference range:) negati ve Not Available [facility] [address] [facility] [address], [place], [address], Ph [phone] 08/01/2023 13:54:29 08/01/19 24 08/01/2023 urina lysis , dipst ick Specific [place] (reference range) 1.025 Not Available [facility] [address] [facility] [address], [place], [address], Ph [phone] 08/01/2023 13:54:29 08/01/19 24 08/01/2023 urina lysis , dipst ick Ketone (reference range) negati ve Not Available [facility] [address] [facility] [address], [place], [address], Ph [phone] 08/01/2023 13:54:29 08/01/19 24 08/01/2023 urina lysis , dipst ick Bilirubin (reference range) negati ve Not Available [facility] [address] [facility] [address], [place], [address], Ph [phone] 08/01/2023 13:54:29 08/01/19 24 08/01/2023 urina lysis , dipst ick Glucose (reference range) negati ve Not Available [facility] [address] [facility] [address], [place], [address], Ph [phone] 08/01/2023 13:54:29 08/01/19 24 08/01/2023 urina lysis , dipst ick Color (reference range: yellow-brown ) Yellow Not Available [facility] [address] [facility] [address], [place], [address], Ph [phone] 08/01/2023 13:54:29 09/13/19 24 09/16/2023 URINA RY TRACT INFEC TION + HIGH RISK SEXUA L BEHAV IOR tet B, tet M 20.266 ppm 23.000 - 27.778 abnormal Detec evelyn Not Available [facility] [address], [place], [address], 09/16/2023 10:44:12 09/13/19 24 09/16/2023 URINA RY TRACT INFEC TION + HIGH RISK SEXUA L BEHAV IOR trichomonas vaginalis 0.000 ppm 23.000 - 32.119 normal Not Detec evelyn Not Available [facility] [address], [place], [address], 09/16/2023 10:44:12 09/13/19 24 09/16/2023 URINA RY TRACT INFEC TION + HIGH RISK SEXUA L BEHAV IOR streptococcu s pyogenes (group A strep) 0.000 ppm 19.961 - 24.689 normal Not Detec evelyn Not Available [facility] [address], [place], [address], 09/16/2023 10:44:12 09/13/19 24 09/16/2023 URINA RY TRACT INFEC TION + HIGH RISK SEXUA L BEHAV IOR streptococcu s agalactiae (group B strep) 0.000 ppm 26.000 - 32.222 normal Not Detec evelyn Not Available [facility] [address], [place], [address], 09/16/2023 10:44:12 09/13/19 24 09/16/2023 URINA RY TRACT INFEC TION + HIGH RISK SEXUA L BEHAV IOR staphylococc us aureus 0.000 ppm 26.000 - 30.902 normal Not Detec evelyn Not Available [facility] [address], [place], [address], 09/16/2023 10:44:12 09/13/19 24 09/16/2023 URINA RY TRACT INFEC TION + HIGH RISK SEXUA L BEHAV IOR serratia marcescens 0.000 ppm 23.000 - 31.204 normal Not Detec evelyn Not Available [facility] [address], [place], [address], 09/16/2023 10:44:12 09/13/19 24 09/16/2023 URINA RY TRACT INFEC TION + HIGH RISK SEXUA L BEHAV IOR pseudomonas aeruginosa 0.000 ppm 23.000 - 28.500 normal Not Detec evelyn Not Available [facility] [address], [place], [address], 09/16/2023 10:44:12 09/13/19 24 09/16/2023 URINA RY TRACT INFEC TION + HIGH RISK SEXUA L BEHAV IOR proteus mirabilis, vulgaris 0.000 ppm 23.000 - 28.500 normal Not Detec evelyn Not Available [facility] [address], [place], [address], 09/16/2023 10:44:12 09/13/19 24 09/16/2023 URINA RY TRACT INFEC TION + HIGH RISK SEXUA L BEHAV IOR neisseria gonorrhoeae 0.000 ppm 23.000 - 32.117 normal Not Detec evelyn Not Available [facility] [address], [place], [address], 09/16/2023 10:44:12 09/13/19 24 09/16/2023 URINA RY TRACT INFEC TION + HIGH RISK SEXUA L BEHAV IOR klebsiella pneumoniae, oxytoca 0.000 ppm 23.000 - 30.500 normal Not Detec evelyn Not Available [facility] [address], [place], [address], 09/16/2023 10:44:12 09/13/19 24 09/16/2023 URINA RY TRACT INFEC TION + HIGH RISK SEXUA L BEHAV IOR escherichia coli 0.000 ppm 23.000 - 28.500 normal Not Detec evelyn Not Available [facility] [address], [place], [address], 09/16/2023 10:44:12 09/13/19 24 09/16/2023 URINA RY TRACT INFEC TION + HIGH RISK SEXUA L BEHAV IOR enterococcus faecalis, faecium 0.000 ppm 26.000 - 31.575 normal Not Detec evelyn Not Available [facility] [address], [place], [address], 09/16/2023 10:44:12 09/13/19 24 09/16/2023 URINA RY TRACT INFEC TION + HIGH RISK SEXUA L BEHAV IOR enterobacter aerogenes, cloacae 0.000 ppm 23.000 - 31.535 normal Not Detec evelyn Not Available [facility] [address], [place], [address], 09/16/2023 10:44:12 09/13/19 24 09/16/2023 URINA RY TRACT INFEC TION + HIGH RISK SEXUA L BEHAV IOR citrobacter freundii 0.000 ppm 23.000 - 31.881 normal Not Detec evelyn Not Available [facility] [address], [place], [address], 09/16/2023 10:44:12 09/13/19 24 09/16/2023 URINA RY TRACT INFEC TION + HIGH RISK SEXUA L BEHAV IOR chlamydia trachomatis 0.000 ppm 23.000 - 31.467 normal Not Detec evelny Not Available [facility] [address], [place], [address], 09/16/2023 10:44:12 09/13/19 24 09/16/2023 URINA RY TRACT INFEC TION + HIGH RISK SEXUA L BEHAV IOR acinetobacte r baumannii 0.000 ppm 19.961 - 24.689 normal Not Detec evelyn Not Available [facility] [address], [place], [address], 09/16/2023 10:44:12 09/13/19 24 09/16/2023 URINA RY TRACT INFEC TION + HIGH RISK SEXUA L BEHAV IOR morganella morganii 0.000 ppm 19.961 - 24.689 normal Not Detec evelyn Not Available [facility] [address], [place], [address], 09/16/2023 10:44:12 09/13/19 24 09/16/2023 URINA RY TRACT INFEC TION + HIGH RISK SEXUA L BEHAV IOR steve albicans, parapsilosis , tropicalis 0.000 ppm 19.961 - 30.770 normal Not Detec evelyn Not Available [facility] [address], [place], [address], 09/16/2023 10:44:12 09/13/19 24 09/16/2023 URINA RY TRACT INFEC TION + HIGH RISK SEXUA L BEHAV IOR steve glabrata 0.000 ppm 23.000 - 32.138 normal Not Detec evelyn Not Available [facility] [address], [place], [address], 09/16/2023 10:44:12 09/13/19 24 09/16/2023 URINA RY TRACT INFEC TION + HIGH RISK SEXUA L BEHAV IOR steve krusei 0.000 ppm 23.000 - 32.271 normal Not Detec evelyn Not Available [facility] [address], [place], [address], 09/16/2023 10:44:12 09/13/19 24 09/16/2023 URINA RY TRACT INFEC TION + HIGH RISK SEXUA L BEHAV IOR mycoplasma genitalium 0.000 ppm 19.961 - 24.689 normal Not Detec evelyn Not Available [facility] [address], [place], [address], 09/16/2023 10:44:12 09/13/19 24 09/16/2023 URINA RY TRACT INFEC TION + HIGH RISK SEXUA L BEHAV IOR mycoplasma hominis 23.375 ppm 19.961 - 24.689 abnormal Detec evelyn Not Available [facility] [address], [place], [address], 09/16/2023 10:44:12 09/13/19 24 09/16/2023 URINA RY TRACT INFEC TION + HIGH RISK SEXUA L BEHAV IOR staphylococc us saprophyticu s 0.000 ppm 19.961 - 24.689 normal Not Detec evelyn Not Available [facility] [address], [place], [address], 09/16/2023 10:44:12 09/13/19 24 09/16/2023 URINA RY TRACT INFEC TION + HIGH RISK SEXUA L BEHAV IOR staphylococc us epidermidis, haemolyticus , lugdunensis 0.000 ppm 19.961 - 24.689 normal Not Detec evelyn Not Available [facility] [address], [place], [address], 09/16/2023 10:44:12 09/13/19 24 09/16/2023 URINA RY TRACT INFEC TION + HIGH RISK SEXUA L BEHAV IOR ureaplasma urealyticum 0.000 ppm 19.961 - 24.689 normal Not Detec evelyn Not Available [facility] [address], [place], [address], 09/16/2023 10:44:12 09/13/19 24 09/16/2023 URINA RY TRACT INFEC TION + HIGH RISK SEXUA L BEHAV IOR ureaplasma parvum 21.335 ppm 19.961 - 24.689 abnormal Detec evelyn Not Available [facility] [address], [place], [address], 09/16/2023 10:44:12 09/13/19 24 09/13/2023 urina lysis , dipst ick Leukocytes (reference range) large Not Available [facility] [address] [facility] [address], [place], [address], Ph [phone] 09/13/2023 17:05:27 09/13/19 24 09/13/2023 urina lysis , dipst ick Nitrite (reference range:) negati ve Not Available [facility] [address] [facility] [address], [place], [address], Ph [phone] 09/13/2023 17:05:27 09/13/19 24 09/13/2023 urina lysis , dipst ick Urobilinogen (reference range) 0.2 Not Available [facility] [address] [facility] [address], [place], [address], Ph [phone] 09/13/2023 17:05:27 09/13/19 24 09/13/2023 urina lysis , dipst ick Protein (reference range) negati ve Not Available [facility] [address] [facility] [address], [place], [address], Ph [phone] 09/13/2023 17:05:27 09/13/19 24 09/13/2023 urina lysis , dipst ick pH (reference range 5-8.5) 6.0 Not Available [facility] [address] [facility] [address], [place], [address], Ph [phone] 09/13/2023 17:05:27 09/13/19 24 09/13/2023 urina lysis , dipst ick Blood (reference range:) negati ve Not Available [facility] [address] [facility] [address], [place], [address], Ph [phone] 09/13/2023 17:05:27 09/13/19 24 09/13/2023 urina lysis , dipst ick Specific [place] (reference range) 1.020 Not Available [facility] [address] [facility] [address], [place], [address], Ph [phone] 09/13/2023 17:05:27 09/13/19 24 09/13/2023 urina lysis , dipst ick Ketone (reference range) negati ve Not Available [facility] [address] [facility] [address], [place], [address], Ph [phone] 09/13/2023 17:05:27 09/13/19 24 09/13/2023 urina lysis , dipst ick Bilirubin (reference range) negati ve Not Available [facility] [address] [facility] [address], [place], [address], Ph [phone] 09/13/2023 17:05:27 09/13/19 24 09/13/2023 urina lysis , dipst ick Glucose (reference range) negati ve Not Available [facility] [address] [facility] [address], [place], [address], Ph [phone] 09/13/2023 17:05:27 09/13/19 24 09/13/2023 urina lysis , dipst ick Color (reference range: yellow-brown ) Yellow Not Available [facility] [address] [facility] [address], [place], [address], Ph [phone] 09/13/2023 17:05:27 Result Notes None recorded. Medical Equipment None Reported. Allergies Allergen ID Allergen Name Allergen Category Reaction Reaction Severity Criticality Documentation Date Start Date Code Code System Note Provider Name and Address Organization Details Recorded Time 42744 Product containin g penicilli n (product) medicatio n hives mild low 10/22/2022 [id number] SNOMED MAGNUS [place], [place] - [facility] & [place] 3 12:45:00 Medications Name Sig Start Date Stop Date Status Note LastModified by Organization Details LastModified Time fluoxetine 40 mg capsule active Not Available Not Available Not Available trazodone 50 mg tablet TAKE 1-2 TABLET BY MOUTH EVERY NIGHT active Not Available Not Available No t Available azithromycin 250 mg tablet TAKE 2 TABLETS (500 MG) BY ORAL ROUTE ONCE DAILY FOR 1 DAY THEN 1 TABLET (250 MG) BY ORAL ROUTE ONCE DAILY FOR 4 DAYS active Not Available Not Available No t Available fluconazole 150 mg tablet TAKE 1 TABLET BY MOUTH NOW NEEDED FOR YEAST. REPEAT IN 3 DAYS active Not Available Not Available No t Available valacyclovir 1 gram tablet TAKE 2 TABLETS BY MOUTH TWICE DAILY active Not Available Not Available No t Available hydrocodone 5 mg-acetamino phen 325 mg tablet TAKE 1 TABLET BY MOUTH EVERY 6 HOURS FOR SEVERE POST SURGICAL PAIN active Not Available Not Available No t Available Celestone Soluspan 6 mg/mL suspension for injection Take 9 mg by injection route. 2023 active Not Available Not Available Not Avai lable meloxicam 15 mg tablet active Not Available Not Available No t Available phenazopyrid ine 200 mg tablet Take 1 tablet 3 times a day by oral route as needed for 7 days. active Not Available Not Available No t Available metronidazol e 0.75 % (37.5 mg/5 gram) vaginal gel INSERT 1 APPLICATORF UL VAGINALLY EVERY NIGHT AT BEDTIME FOR 5 DAYS active Not Available Not Available N ot Available metronidazol e 500 mg tablet active Not Available Not Available Not Available acyclovir 400 mg tablet TAKE ONE TAB 5 TIMES PER DAY FOR 10 DAYS active Not Available Not Available No t Available valacyclovir 500 mg tablet active Not Available Not Available Not Available sulfamethoxa zole 800 mg-trimethop rim 160 mg tablet Take 1 tablet every 12 hours by oral route for 10 days. active Not Available Not Available No t Available doxycycline monohydrate 100 mg tablet Take 1 tablet twice a day by oral route for 7 days. active Not Available Not Available No t Available tramadol 50 mg tablet TAKE 1 TO 2 TABLETS BY MOUTH EVERY 6 HOURS NEEDED FOR PAIN active Not Available Not Available No t Available triamcinolon e acetonide 0.1 % topical cream APPLY THIN COAT TO AFFECTED AREA TWICE A DAY active Not Available Not Available No t Available prednisone 10 mg tablets in a dose pack TAKE 6 TABLETS ON DAY 1 DIRECTED ON PACKAGE AND DECREASE BY 1 TAB EACH DAY FOR A TOTAL OF 6 DAYS active Not Available Not Available No t Available meloxicam 7.5 mg tablet TAKE 1 TABLET BY MOUTH EVERY DAY WITH FOOD REGARDLESS OF PAIN LEVEL FOR 1 WEEK active Not Available Not Available No t Available trazodone 100 mg tablet TAKE 1 TABLET BY MOUTH EVERY DAY AT BEDTIME NEEDED active Not Available Not Available No t Available cephalexin 500 mg capsule TAKE 1 CAPSULE ORAL ROUTE 4 TIMES PER DAY FOR 5 DAYS active Not Available Not Available No t Available pantoprazole 40 mg tablet,delay ed release TAKE 1 TABLET BY MOUTH EVERY DAY active Not Available Not Available No t Available cabergoline 0.5 mg tablet active Not Available Not Available Not Available omeprazole 20 mg capsule,vaibhav yed release active Not Available Not Available Not Available ceftriaxone 500 mg solution for injection Take 500 mg by injection route. 2023 active Not Available Not Available Not Avai lable furosemide 20 mg tablet active Not Available Not Available Not Available ziprasidone 40 mg capsule TAKE 1 CAPSULE BY MOUTH TWICE A DAY active Not Available Not Available No t Available gabapentin 100 mg capsule TAKE 1 CAPSULE BY MOUTH EVERY NIGHT AT BEDTIME FOR 1 WEEK active Not Available Not Available No t Available propranolol 20 mg tablet active Not Available Not Available Not Available ziprasidone 60 mg capsule TAKE 1 CAPSULE BY MOUTH TWICE A DAY active Not Available Not Available No t Available ondansetron 4 mg disintegrati ng tablet PLACE 1 TABLET ON THE TONGUE EVERY 6 HOURS NEEDED FOR 4 DAYS active Not Available Not Available No t Available fluoxetine 20 mg capsule TAKE 2 CAPSULES DAILY active Not Available Not Available No t Available fluticasone propionate 50 mcg/actuatio n nasal spray,suspen ender active Not Available Not Available Not Available risperidone 1 mg tablet TAKE 1 TABLET BY MOUTH TWICE A DAY active Not Available Not Available No t Available Fiber-Lax 625 mg tablet active Not Available Not Available Not Available azithromycin 500 mg tablet TAKE 1 TABLET BY MOUTH ONCE DAILY FOR 3 DAYS active Not Available Not Available No t Available Florastor 250 mg capsule active Not Available Not Available Not Available nitrofuranto in monohydrate/ macrocrystal s 100 mg capsule TAKE 1 CAPSULE BY MOUTH EVERY 12 HOURS FOR 7 DAYS active Not Available Not Available N ot Available duloxetine 30 mg capsule,vaibhav yed release TAKE 1 CAPSULE BY MOUTH EVERY DAY DIRECTED active Not Available Not Available No t Available tranexamic acid 650 mg tablet TAKE 2 TABLETS BY MOUTH THREE TIMES DAILY FOR 5 DAYS active Not Available Not Available N ot Available Vraylar 1.5 mg capsule TAKE 1 CAPSULE BY MOUTH EVERY DAY active Not Available Not Available No t Available Vraylar 3 mg capsule active Not Available Not Available Not Available Wegovy 0.25 mg/0.5 mL subcutaneous pen injector active Not Available Not Available Not Available Mounjaro 2.5 mg/0.5 mL subcutaneous pen injector INJECT 2.5MG UNDER THE SKIN WEEKLY FOR 4 WEEKS active Not Available Not Available No t Available Vitals Date Recorded Body weight Body mass index (BMI) Body height Body temperature Oxygen saturation Oxygen saturation in Arterial blood by Pulse oximetry Heart rate Heart rate Systolic And Diastolic Provider Name and Address Organization Details Last Updated DateTime 4 28093.4 3 g 32.2 kg/m2 165.1 cm 98.3 [degF] 97 % 97 % 65 /min 94 /min 119/81 mm[Hg] Tierney Mack [facility] [place] 4 13:15:13 Date Recorded Body height Body mass index (BMI) Body weight Body temperature Provider Name and Address Organization Details Last Updated DateTime 04/08/2023 165.1 cm 32.6 kg/m2 42378.1 g 98.3 [degF] Sahra Cranener [facility] [place] 04/08/2023 13:06:41 Date Recorded Body height Body mass index (BMI) Body weight Oxygen saturation Oxygen saturation in Arterial blood by Pulse oximetry Body temperature Systolic And Diastolic Provider Name and Address Organization Details Last Updated DateTime 4 165.1 cm 31.5 kg/m2 24264.9 6 g 94 % 94 % 99.7 [degF] 136/75 mm[Hg] Debra edmondson [facility] [place] 4 12:53:48 Date Recorded Body height Body mass index (BMI) Body weight Body temperature Oxygen saturation Oxygen saturation in Arterial blood by Pulse oximetry Heart rate Systolic And Diastolic Provider Name and Address Organization Details Last Updated DateTime 4 165.1 cm 31.7 kg/m2 51712.2 7 g 99.9 [degF] 96 % 96 % 95 /min 117/76 mm[Hg] Zev Reed [facility] [place] 4 13:52:14 Date Recorded Body height Body mass index (BMI) Body weight Body temperature Oxygen saturation Oxygen saturation in Arterial blood by Pulse oximetry Heart rate Heart rate Systolic And Diastolic Provider Name and Address Organization Details Last Updated DateTime 4 165.1 cm 32.6 kg/m2 99847.1 g 98.6 [degF] 99 % 99 % 77 /min 77 /min 126/77 mm[Hg] Yanira Hester [facility] [place] 4 17:01:34 Social History Question Answer Notes LastModified by Organizat ion Details LastModified Time Tobacco Smoking Status Former Smoker Yanira Hester [facility], [facility] [place] 09/13/2023 17:04:01 When Did You Quit Smoking? 6-10yearssin celastcigare tte [id number] Information not available 09/13/2023 Sex: Unknown Functional Status None recorded. Mental Status None recorded. Family History Relationship Description Onset Age of this Age Resolved Age Notes LastModified by Organization Details LastModified Time Father No current problems or disability asalsman Not available 10/22 12:45:18 Mother No current problems or disability asalsman Not available 10/22 12:45:18 Medical History No medical history recorded. Gynecological History Statement/Question Response Date of LMP 08/20/2023 Obstetrics History GPAL:G 0 P 0 0 0 0 Past Encounters Encounter ID Performer Location Encounter Start Date Encounter Closed Date Diagnosis/Indication Diagnosis SNOMED-CT Code Diagnosis ICD10 Code Diagnosis Note [id number] Sherita Richards, DNP, SOFTWARE TEST ANALYST-C, ENDOSCOPY TECHNICIAN [facility] [address] [place] [address] 10/22/2022 12:39:02 10/22/2022 13:56:29 Avulsion of skin 297069393 T14.8XXA area cleaned with warm soap and water. Dermabond used to glue area together. Dressing applied and patient educated on aftercare. [id number] Dorene Cast APRN [facility] [address] [place] [address] 12/04/2022 14:10:32 12/04/2022 14:37:57 Pain in throat 099206042 R07.0 Streptococ abhijeet sore throat 17826280 J02.0 Nausea 094293684 R11.0 [id number] Dorene Cast APRN [facility] [address] [place] [address] 03/19/2023 12:56:37 03/19/2023 13:32:01 Allergic reaction 807645489 T78.40XA [id number] Sravan San MD [facility] [address] [place] [address] 04/08/2023 12:29:27 04/08/2023 13:18:44 Pain in throat 306926229 R07.0 Acute uppe r respiratory infection 22985370 J06.9 symptomati c treatment [id number] Dorene Cast APRN [facility] [address] [facility] [place] [address] 07/09/2023 12:43:55 07/09/2023 13:15:00 Pain in throat 948922590 R07.0 Streptococ abhijeet sore throat 87913725 J02.0 Nausea 560416058 R11.0 [id number] Dorene Cast APRN [facility] [address] [facility] [place] [address] 08/01/2023 13:40:28 08/01/2023 14:11:45 Increased frequency of urination 173626051 R35.0 Acute urin jurgen tract infection 515848021 N39.0 [id number] Liu Cast MD [facility] [address] [facility] [place] [place] [address] 09/13/2023 16:52:08 09/13/2023 17:57:27 Dysuria 72297039 R30.0 Acute urin jurgen tract infection 590644282 N39.0 Vaginal discharge 600832 006 N89.8 Health Concerns Section Related Observation LastModified by Organization Detai ls LastModified Time None Recorded Concern Status LastModified by Organization Details LastModified Time None Recorded Advance Directives Directive None Recorded Payers Insurance Date Sequence Insurance Name Policy Number Policy Austin Covered Member ID Austin Member ID Guarantor Name 09/24/2023 1 [place] [id number] Ana Wiglesworth [id number] Ana Wiglesworth 08/01/2023 1 [employer] (POS) Ana Wiglesworth [id number] Ana Wiglesworth Notes Date Note Type Note Provider Name and Address Organization Details Recorded Time 03/19/2023 text/html Rash/Skin LesionReported bypatient.Location:[facility] Quality:itchy;red;mul tiple Severity:mild Duration:symptoms began 1 week ago Onset/Timing:abrupt onset Context:no new detergents or skin products; no one else with similar rash; not scratching; they changed to new at work and rash started after Alleviating Factors:nothing gives relief Aggravating Factors:mask make worse Associated Symptoms:no fever; no cold symptoms; no nausea; no vomiting; no diarrhea; no urinary symptoms; no chills; no fatigue; no change in weight Treatment History:no history of treatment Dorene Cast APRN [address], [place], [address], [facility] [place] 03/19/2023 13:57:30 04/08/2023 text/html Thday started with a really bad headache. I had a coworker test positive for COVID. I have had chills but no fevers. I have a bit of thghtness in the ches but no dyspnea. no nausea Sravan San MD [address], [place], [address], [facility] [place] 04/08/2023 13:18:36 07/09/2023 text/html Upper Respirator y SymptomsReported bypatient.Location:[facility]; chest; throat; nasal; face Quality:congested;dry cough;nasal discharge; sinus pressure Severity:no pain Duration:symptoms began 3-4 days ago Onset/Timing:sudden Context:no sick contacts; no foreign travel; non-smoker Alleviating Factors:not taken anything Associated Symptoms:no chest pain; no sputum production; no shortness of breath; no wheezing; no cyanosis; no change in number of pillows needed to sleep at night; no sweats; no morning cough; no vomiting; no rash; no conjunctivitis;fatigu e;fever;sore throat;diarrhea;nause a;headache;chills;mal aise; fever 100Notes:LMP 1 month ago Dorene Cast APRN [address], [place], [address] [place] 07/09/2023 13:24:55 08/01/2023 text/html Lower Urinary Tr act Symptoms (LUTS)Reported bypatient.Location:[facility] Quality:pressure Severity:worsening Onset/Timing:spontane ous Duration:acute; symptoms began 2-3 days ago Context:no dyspareunia; denies new medication treatment;excessive caffeine intake Alleviating Factors:none Aggravating Factors:none Associated Symptoms:no abdominal pain; no groin pain; no pelvic pain; no flank pain; no low back pain; no chills; no fever; no constipation; no diarrhea; no nausea; no vomiting; no temperaure; good force of stream; no straining; no post void dribbling; no hesitancy; empties well; no incontinence; no perineal pain; no suprapubic pain; no costovertebral angle tenderness; no nocturia; no urine odor; no gross hematuria; no abnormal vaginal discharge; no vaginal itching or burning;urgency;frequ ency Dorene Cast APRN [address], [place], [address] [place] 08/01/2023 14:12:59 09/13/2023 text/html Dysuria for davon ral days but also some vaginal discharge and irritation for past few days. Has been told that her new sexual partner has had Chlamydia but this has not been confirmed to her. States would like to be tested and treated for this. No nausea, vomiting, etc. Liu Cast MD [address], [place], [address], [facility] [place] & [place] 09/13/2023 18:20:52 OBGyn Episode No OBEpisode recorded.
--- OUTSIDE RECORDS SUMMARY | 2024-09-09 23:52 | XMS_ITS | Data Portability ---
Author Organization [facility] CAMMIE Atwood HESSTON CLOSED Address [address] [place] [address] Care Team Providers Care Manager Work Name Role Phone STEVE LOVELoc Primary Care Provider Assessment Encounter Date Assessment Date Assessment LastModified by Organization Details LastModified Time 10/14/2023 10/14/2023 TIME POST SURGERY: 13 days SURGERY: Excision right dorsal carpal ganglion cyst Posterior interosseous neurectomy [email or web address] Not available 10/11/2023 14:13:08 11/11/2023 11/11/2023 Right ring and small finger numbness that is intermittent. alena Not available 11/12/2023 15:14:56 01/29/2024 01/29/2024 Right ring and small finger numbness that is intermittent. Doing well otherwise, advised massage and scar, I think these are adhesions, advised stretching scar, consult with her hand therapist if needed, follow-up as needed. delbert Not available 01/29/2024 15:31:26 Plan of Treatment Reminders Order Date Submit Date Provider Last Modified By Organization Details Last Modified Time Details Appointments None recorded. Lab prolactin, serum 2024 025 [facility], [address] [place] [address], [id number], 19:13:33 iron + total iron-ethel ng capacity (TIBC), serum 2024 025 [facility], [address] [place] [address], [address], 5 19:11:41 vitamin B12 + folate, serum or blood 2024 025 [facility], [address] [place] [address], [address], 5 19:26:24 vitamin D, 25-hydroxy , total, serum 2024 025 [facility], [address] [place] [address], [address], 19:26:22 CBC w/ auto diff 2024 025 [facility], [address] [place] [address], [address], 19:38:57 CMP, serum or plasma 2024 025 [facility], [address] [place] [address], [address], 19:11:42 TSH, serum or plasma 2024 025 [facility], [address] [place] [address], [address], 19:13:01 Referral neurologic al surgeon referral 2024 025 [email or web address] 1 Ector Polanco III, MD, [address] [facility], [facility] [address], [place], [address], 09:08:48 Procedures None recorded. Surgeries None recorded. Imaging MRI, brain + pituitary, w/wo contrast 2024 025 [facility] (Centralized Scheduling), [address] [facility], [place], [address], 5 16:18:30 XR, wrist, 2 view - Rm 6: supinated AP / neutral lateral juliet wrists 08/2023 MINESH Not available 07:34:26 Medication Orders meloxicam 7.5 mg tablet 2023 MINESH [id number], [address] [address] [place], [id number], 15:04:51 Patient TargetsNo targets recorded. Patient Instructions Encounter Date Encounter Id Patient Instructions Last Modified By Organization Details Last Modified Time 10/21/2023 [id number] I recommend she wear the wrist splint that was provided at the emergency room for the right wrist. She can wear for the left wrist for more comfort. She should periodically remove them to work on motion. She already has an appointment for November 11, 2023. She is given a note to keep her off work until that visit. I will send in a prescription for meloxicam to help with the pain. I reassured her that she did not do any significant damage to her previous surgical sites. alena Not available 10/21/2023 16:18:47 11/11/2023 [id number] I recommend returning to work with no restrictions. The numbness that she is experiencing may be secondary to swelling from the injury that she had superimposed on surgery. She will monitor this. If that worsens she will call for a follow-up evaluation. She will otherwise follow-up as needed. She is encouraged to continue to work on range of motion. 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 :SS-2 08 00 Copy to: Diagn osis: Right dorsa l carpa l wrist : Featu res rupesh tible with gangl ion cyst. SOURC E OF SPECI MEN: GANGL ION CYST, RIGHT DORSA L CARPA L GANGL ION CYST CLINI MANUELITO INFOR MATIO N: M67.4 31 GANGL ION CYST OF RIGHT DORSA L WRIST Gross Descr iptio n: Recei jayro in forma praneeth label ed with the patie nt's name and desig nated as righ t dorsa l carpa l gangl ion cyst are six irreg ular fragm ents of white -omalley to yello w, fibro us soft tissu e which range in size from 0.5 cm up to 2.2 x 1 x 0.4 cm. There is no overl deepali skin. A disti nct well- defin ed cyst cavit y is not ident ified , howev er, the fragm ents may repre sent a fragm ented cyst devoi d of lumin al harvey nts. The large st tissu e fragm ent is bisec evelyn. Entir anant submi tted in a singl e casse tte label ed A1. MARCO 09/30 02:20 PM Micro scopi c Descr iptio n: A micro scopi c exami natio n has been perfo rmed and the resul t(s) are as noted above . JOON KESSLER M.D. Sharron d Out Date: 10/01 12:01 Page 1 of 1 Not Available [facility] [address] [place] [address], [id number], 10/02/2023 12:01:52 08/07/19 25 08/06/2024 IRON PANEL -TOTA L AND TIBC iron 19 ug/dL 37-145 low Not Available [facility] [address] [place] [address], [address], 08/06/2024 19:11:41 08/07/19 25 08/06/2024 IRON PANEL -TOTA L AND TIBC total iron binding cap. 467 ug/dL _(manuelito c) 250-45 0 high Not Available [facility] [address] [place] [address], [address], 08/06/2024 19:11:41 08/07/19 25 08/06/2024 IRON PANEL -TOTA L AND TIBC unsat.iron binding cap. 448 ug/dL 112-34 7 high Not Available [facility] [address] [place] [address], [address], 08/06/2024 19:11:41 08/07/19 25 08/06/2024 IRON PANEL -TOTA L AND TIBC % saturation 4 %_(ca lc) 15-50 low Not Available [facility] [address] [place] [address], [address], 08/06/2024 19:11:41 08/07/19 25 08/06/2024 COMP. METAB OLIC PANEL glucose 71 mg/dL 74-100 low Not Available [facility] [address] [place] [address], [address], 08/06/2024 19:11:42 08/07/19 25 08/06/2024 COMP. METAB OLIC PANEL blood urea nitrogen 13 mg/dL 6-20 normal Not Available [facility] [address] [place] [address], [address], 08/06/2024 19:11:42 08/07/19 25 08/06/2024 COMP. METAB OLIC PANEL creatinine 0.87 mg/dL 0.50-0 .95 normal Not Available [facility] [address] [place] [address], [address], 08/06/2024 19:11:42 08/07/19 25 08/06/2024 COMP. METAB OLIC PANEL BUN/creatini ne ratio 15 (calc ) 10-20 normal Not Available [facility] [address] [place] [address], [address], 08/06/2024 19:11:42 08/07/19 25 08/06/2024 COMP. METAB OLIC PANEL sodium 136 mmol/ L 136-14 5 normal Not Available [facility] [address] [place] [address], [address], 08/06/2024 19:11:42 08/07/19 25 08/06/2024 COMP. METAB OLIC PANEL potassium 4.1 mmol/ L 3.4-5. 0 normal Not Available [facility] [address] [place] [address], [address], 08/06/2024 19:11:42 08/07/19 25 08/06/2024 COMP. METAB OLIC PANEL chloride 100 mmol/ L 98-107 normal Not Available [facility] [address] [place] [address], [address], 08/06/2024 19:11:42 08/07/19 25 08/06/2024 COMP. METAB OLIC PANEL carbon dioxide 23 mmol/ L 22-31 normal Not Available [facility] [address] [place] [address], [address], 08/06/2024 19:11:42 08/07/19 25 08/06/2024 COMP. METAB OLIC PANEL anion gap 13 (calc ) 7-25 normal Not Available [facility] [address] [place] [address], [address], 08/06/2024 19:11:42 08/07/19 25 08/06/2024 COMP. METAB OLIC PANEL calcium 9.3 mg/dL 8.6-10 .2 normal Not Available [facility] [address] [place] [address], [address], 08/06/2024 19:11:42 08/07/19 25 08/06/2024 COMP. METAB OLIC PANEL total protein 8.2 g/dL 6.4-8. 3 normal Not Available [facility] [address] [place] [address], [address], 08/06/2024 19:11:42 08/07/19 25 08/06/2024 COMP. METAB OLIC PANEL albumin 4.5 g/dL 3.5-5. 2 normal Not Available [facility] [address] [place] [address], [address], 08/06/2024 19:11:42 08/07/19 25 08/06/2024 COMP. METAB OLIC PANEL globulin 3.7 1.5-4. 5 normal Not Available [facility] [address] [place] [address], [address], 08/06/2024 19:11:42 08/07/19 25 08/06/2024 COMP. METAB OLIC PANEL albumin/glob ulin ratio 1.2 (calc ) 1.1-2. 5 normal Not Available [facility] [address] [place] [address], [address], 08/06/2024 19:11:42 08/07/19 25 08/06/2024 COMP. METAB OLIC PANEL bilirubin, total 0.4 mg/dL 0.1-1. 2 normal Not Available [facility] [address] [place] [address], [address], 08/06/2024 19:11:42 08/07/19 25 08/06/2024 COMP. METAB OLIC PANEL alkaline phosphatase 80 U/L 30-121 normal Not Available [facility] [address] [place] [address], [address], 08/06/2024 19:11:42 08/07/19 25 08/06/2024 COMP. METAB OLIC PANEL AST 22 U/L 0-32 normal Not Available [facility] [address] [place] [address], [address], 08/06/2024 19:11:42 08/07/19 25 08/06/2024 COMP. METAB OLIC PANEL ALT 17 U/L 0-33 normal Not Available [facility] [address] [place] [address], [address], 08/06/2024 19:11:42 08/07/19 25 08/06/2024 COMP. METAB OLIC PANEL eGFR 92 >= 60 normal NOT E New calcu latio n for GFR (CKD- EPI 2020) is formu lated witho ut race adjus tment facto rs at the recom menda tion of the Natfarrukh burns Kidkimmy y Found ation and Petey Urbane ty of Nephr ology . This calcu latio n has not been valid ated in pregn ant women . For pedia tric patie nts refer to https ://susan w.laurence lares.o rg/pr ofess ional s/KDO QI/gf r_cal culat orPed Not Available [facility] [address] [place], [address], 08/06/2024 19:11:42 08/07/19 25 08/06/2024 TSH TSH 0.841 u[IU] /mL 0.270- 4.200 normal Not Available [facility] [address] [place], [address], 08/06/2024 19:13:01 08/07/19 25 08/06/2024 PROLA CTIN prolactin 63.10 NG/mL 4.79-2 3.30 high Refer ence range is based on non-p regna nt women . Not Available [facility] [address] [place], [address], 08/06/2024 19:13:32 08/07/19 25 08/06/2024 VITAM IN D 25-OH vitamin D 25-oh, total 36 NG/mL >=30 NG/mL normal Not Available [facility] [address] [place], [address], 08/06/2024 19:26:22 08/07/19 25 08/06/2024 B12/F OLIC ACID PANEL folic acid 8.3 NG/mL 4.6-34 .8 normal Not Available [facility] [address] [place], [address], 08/06/2024 19:26:24 08/07/19 25 08/06/2024 B12/F OLIC ACID PANEL vitamin B12 838 pg/mL 232-12 45 normal Not Available [facility] [address] [place] [address], [address], 08/06/2024 19:26:24 08/07/19 25 08/06/2024 COMPL ETE BLOOD COUNT white blood cells 7.2 10*3/ uL 3.8-10 .8 normal Not Available [facility] [address] [place] [address], [address], 08/06/2024 19:38:57 08/07/19 25 08/06/2024 COMPL ETE BLOOD COUNT red blood cells 4.06 10*6/ uL 3.80-5 .20 normal Not Available [facility] [address] [place] [address], [address], 08/06/2024 19:38:57 08/07/19 25 08/06/2024 COMPL ETE BLOOD COUNT hemoglobin 9.2 g/dL 12.0-1 6.0 low Not Available [facility] [address] [place] [address], [address], 08/06/2024 19:38:57 08/07/19 25 08/06/2024 COMPL ETE BLOOD COUNT hematocrit 28.4 % 35.0-4 7.0 low Not Available [facility] [address] [place] [address], [address], 08/06/2024 19:38:57 08/07/19 25 08/06/2024 COMPL ETE BLOOD COUNT MCV 70 fL 80-100 low Not Available [facility] [address] [place] [address], [address], 08/06/2024 19:38:57 08/07/19 25 08/06/2024 COMPL ETE BLOOD COUNT MCH 23 pg 26-35 low Not Available [facility] [address] [place] [address], [address], 08/06/2024 19:38:57 08/07/19 25 08/06/2024 COMPL ETE BLOOD COUNT MCHC 32 g/dL 32-36 normal Not Available [facility] [address] [place] [address], [address], 08/06/2024 19:38:57 08/07/1908/06/2024 COMPL ETE BLOOD COUNT RDW 15.8 % 11.0-1 5.0 high Not Available [facility] [address] [place] [address], [address], 08/06/2024 19:38:57 08/07/1908/06/2024 COMPL ETE BLOOD COUNT MPV 8.4 fL 6.2-10 .5 normal Not Available [facility] [address] [place] [address], [address], 08/06/2024 19:38:57 08/07/19 25 08/06/2024 COMPL ETE BLOOD COUNT platelet count 380 10*3/ uL 150-40 0 normal Not Available [facility] [address] [place] [address], [address], 08/06/2024 19:38:57 08/07/19 25 08/06/2024 COMPL ETE BLOOD COUNT neutrophil,a bsolute 4.7 10*3/ uL 1.6-8. 4 normal Not Available [facility] [address] [place] [address], [address], 08/06/2024 19:38:57 08/07/19 25 08/06/2024 COMPL ETE BLOOD COUNT lymphocyte,a bsolute 1.7 10*3/ uL 0.4-5. 1 normal Not Available [facility] [address] [place] [address], [address], 08/06/2024 19:38:57 08/07/19 25 08/06/2024 COMPL ETE BLOOD COUNT monocyte,abs olute 0.7 10*3/ uL 0.0-1. 2 normal Not Available [facility] [address] [place] [address], [address], 08/06/2024 19:38:57 08/07/19 25 08/06/2024 COMPL ETE BLOOD COUNT eosinophil,a bsolute 0.0 10*3/ uL 0.0-0. 8 normal Not Available [facility] [address] [place] [address], [address], 08/06/2024 19:38:57 08/07/19 25 08/06/2024 COMPL ETE BLOOD COUNT basophil,abs olute 0.0 10*3/ uL 0.0-0. 3 normal Smear revie wed to confi rm cell morph ology . Not Available [facility] [address] [place] [address], [address], 08/06/2024 19:38:57 08/07/19 25 08/06/2024 COMPL ETE BLOOD COUNT % neutrophils 66.0 % 42.0-7 8.0 normal Not Available [facility] [address] [place] [address], [address], 08/06/2024 19:38:57 08/07/19 25 08/06/2024 COMPL ETE BLOOD COUNT % lymphocytes 23.6 % 11.0-4 7.0 normal Not Available [facility] [address] [place] [address], [address], 08/06/2024 19:38:57 08/07/19 25 08/06/2024 COMPL ETE BLOOD COUNT % monocytes 9.6 % 0.0-11 .0 normal Not Available [facility] [address] [place] [address], [address], 08/06/2024 19:38:57 08/07/19 25 08/06/2024 COMPL ETE BLOOD COUNT % eosinophils 0.3 % 0.0-7. 0 normal Not Available [facility] [address] [place] [address], [address], 08/06/2024 19:38:57 08/07/19 25 08/06/2024 COMPL ETE BLOOD COUNT % basophils 0.5 % 0.0-3. 0 normal Not Available [facility] [address] [place] [address], [address], 08/06/2024 19:38:57 08/07/19 25 08/06/2024 COMPL ETE BLOOD COUNT nucleated red cells 0.0 % 0.0-0. 9 normal Not Available [facility] [address] [place] [address], [address], 08/06/2024 19:38:57 08/07/19 25 08/06/2024 COMPL ETE BLOOD COUNT nucleated RBCs, absolute 0.00 10*3/ uL not estab. normal Not Available [facility] [address] [place] [address], [address], 08/06/2024 19:38:57 08/07/19 25 08/06/2024 MORPH OLOGY platelet morphology NORMAL normal Not Available [facility] [address] [place] [address], [address], 08/06/2024 19:38:59 08/07/19 25 08/06/2024 MORPH OLOGY microcytosis SLIGHT abnormal Not Available [facility] [address] [place] [address], [address], 08/06/2024 19:38:59 08/07/19 25 08/06/2024 MORPH OLOGY polychromasi a SLIGHT abnormal Not Available [facility] [address] [place] [address], [address], 08/06/2024 19:38:59 08/07/19 25 08/06/2024 MORPH OLOGY ovalocytes SLIGHT abnormal Not Available [facility] [address] [place] [address], [address], 08/06/2024 19:38:59 08/07/19 25 08/06/2024 MORPH OLOGY stomatocytes SLIGHT abnormal Not Available [facility] [address] [place] [address], [address], 08/06/2024 19:38:59 08/07/19 25 08/06/2024 MORPH OLOGY dacryocytes SLIGHT abnormal Not Available [facility] [address] [place], [address], 08/06/2024 19:38:59 08/12/19 25 08/11/2024 BETA HCG, PREGN ALEXA beta HCG, <5 m[IU] /mL 0-5 normal EXPEC EVELYN HCG LEVEL S WEEKS OF GESTA TION HCG LEVEL (mIU/ mL) 3 5.8 - 71.2 4 9.5 - 750 5 217 - 7138 6 158 - 31,79 5 7 3697 - 163,5 63 8 32,06 5 - 149,5 71 9 63,80 3 - 151,4 10 10 46,50 9 - 186,9 77 12 27,83 2 - 210,6 12 14 13,95 0 - 62,53 0 15 12,03 9 - 70,97 1 16 9040 - 56,45 1 17 8175 - 55,86 8 18 8099 - 58,17 6 Not Available [facility] [address] [place], [address], 08/11/2024 20:03:23 10/22/19 24 10/21/2023 XR, wrist , 2 view [place] dejesus [facility] [address] [place] [address] Donato t Name: PEÑA neri : [birth year] Patijose juan t Orderi ng Provid er: QIAN MATUTE EXAM DATE: 2023 EXAM: XR JULIET WRISTS , AP/LAT HISTOR Y: Bilate ral wrist pain and prior wrist surger y. COMPAR KATHERINE: None. FINDIN GS: The bones of the left and right wrist are normal in alignm ent. There is no displa jarrett fractu re. There is no degene rative change . There is soft tissue swelli ng of the left and right wrist. IMPRES NI: 1. There is soft tissue swelli ng of the left and right wrist, but there is no eviden ce of fractu re. Interp reted By: Lena kwon MD Electr on ly Signed By: Lena kwon MD on 7:29 AM alena [facility] [place] [address] , [place], [address], 10/22/2023 09:51:04 08/12/19 25 08/11/2024 MRI, brain + pitui tary, w/wo contr ast No observ ation record ed. [email or web address] [address], [place], [address], 08/12/2024 08:47:59 08/13/19 25 08/11/2024 MRI, brain + pitui tary, w/wo contr ast No observ ation record ed. [facility] [address] [place], [address], 08/28/2024 19:04:21 Result Notes Documentation Provider Name and Address Organization Details Recorded Time Xr, Wrist, 2 View : [facility] [address] [place] [address] Patient Name: ANA HE Patient : 1995 Patient Ordering Provider: KRUNAL HOFF EXAM DATE: 10/21/2023 EXAM: XR JULIET WRISTS, AP/LAT HISTORY: Bilateral wrist pain and prior wrist surgery. COMPARISON: None. FINDINGS: The bones of the left and right wrist are normal in alignment. There is no displaced fracture. There is no degenerative change. There is soft tissue swelling of the left and right wrist. IMPRESSION: 1. There is soft tissue swelling of the left and right wrist, but there is no evidence of fracture. Interpreted By: Damien Zaidi MD AL HOFF PA-C [address] [place] [address], [address], [facility] 10/22/2023 09:51:04 Problems Name Problem SNOMED Code Status Onset Date Resolution Date Notes Provider Name and Address Organization Details Recorded Time Urinary tract infectious disease 61799256 Active 2015 Provide r: Gt Grubbs ;Status : Active Not Available [facility] 6 05:26:23 Slowing of urinary stream 68742851 Active 2015 Provide r: Gt Grubbs ;Status : Active Not Available [facility] 6 05:26:23 Pain of left wrist 151178001169 102 Active 2023 ESPERANZA ROSENBERG, DO [address] [place], [address] , [facility] 4 13:39:32 Ganglion cyst of left dorsal wrist 546001015332 47721 Active 2023 ESPERANZA ROSENBERG, DO [address] [place], [address] , [facility] 4 13:39:58 Problem Notes None recorded. Procedures Surgical History Date Name Laterality Status Provider Name and Address Organization Details Recorded Time 4 Op Note completed HELEN DIGGS MD [address] [place], [address], [facility] 10/01/2023 10:29:40 4 OT Evaluation - Moderate complexity cancelled GENARO ASTUDILLO OTR/L, CHT [address] [place], [address], [facility] 09/20/2023 08:01:37 4 OT Therapeutic Exercise cancelled GENARO ASTUDILLO OTR/L, CHT [address] [place], [address], [facility] 09/20/2023 08:01:37 4 PT Hot/Cold Pack cancelled EGNARO ASTUDILLO OTR/L, CHT [address] [place], [address], [facility] 09/20/2023 08:01:37 4 OT Evaluation - Moderate complexity completed GENARO K BAUDILIO, OTR/L, CHT [address] [place], [address], [facility] 09/16/2023 08:00:05 4 OT Therapeutic Exercise completed GENARO ASTUDILLO, OTR/L, CHT [address] [place], [address], [facility] 09/16/2023 12:15:34 4 PT Hot/Cold Pack completed GENARO ASTUDILLO, OTR/L, CHT [address] [place] [address], [address], [facility] 09/16/2023 12:15:14 4 Op Note completed HELEN DIGGS MD [address] [place] [address], [address], [facility] 09/23/2023 15:17:45 Hartshorn Teeth Extraction completed Ailin Whitney [facility] 10/07/2019 13:44:22 Imaging Results None recorded. Procedure Notes None recorded. Medical Equipment None Reported. Allergies Allergen ID Allergen Name Allergen Category Reaction Reaction Severity Criticality Documentation Date Start Date Code Code System Note Provider Name and Address Organization Details Recorded Time 880070 Product containin g penicilli n (product) medicatio n Not available Not available Not available 10/07/2019 27165 8001 SNOMED Ailin Whitney [facility] 0 13:42:02 Medications Name Sig Start Date Stop Date Status Note LastModified by Organization Details LastModified Time fluoxetin e 40 mg capsule 11/29 completed Not Available Not Available Not Available ziprasido ne 80 mg capsule TAKE 1 CAPSULE BY MOUTH TWICE A DAY active Not Available Not Available No t Available clonidine HCl 0.1 mg tablet TAKE 1 TO 2 TABLETS BY MOUTH EVERY DAY AT BEDTIME NEEDED FOR INSOMNIA active Not Available Not Available No t Available benztropi ne 0.5 mg tablet 11/29 completed Not Available Not Available Not Available trazodone 50 mg tablet TAKE 1-2 TABLET BY MOUTH EVERY NIGHT 01/28 completed Not Available Not Available Not Available azithromy hermilo 250 mg tablet TAKE 2 TABLETS BY MOUTH TODAY, THEN TAKE 1 TABLET DAILY FOR 4 DAYS DIRECTED 08/06 completed Not Available Not Available Not Available fluconazo le 150 mg tablet TAKE 1 TABLET BY MOUTH NOW NEEDED FOR YEAST. REPEAT IN 3 DAYS 08/06 completed Not Available Not Available Not Available valacyclo vir 1 gram tablet TAKE 2 TABLETS BY MOUTH TWICE DAILY 01/30 completed Not Available Not Available Not Available hydrocodo ne 5 mg-acetam inophen 325 mg tablet TAKE 1 TABLET BY MOUTH EVERY 6 HOURS FOR SEVERE POST SURGICAL PAIN 10/13 completed Not Available Not Available Not Available meloxicam 15 mg tablet Take 1 tablet every day by oral route. 09/23 completed Not Available Not Available Not Available phenazopy ridine 200 mg tablet TAKE 1 TABLET BY MOUTH THREE TIMES A DAY NEEDED FOR 7 DAYS 01/28 completed Not Available Not Available Not Available metronida zole 0.75 % (37.5 mg/5 gram) vaginal gel INSERT 1 APPLICAT ORFUL VAGINALL Y EVERY NIGHT AT BEDTIME FOR 5 DAYS active Not Available Not Available No t Available atenolol 25 mg tablet TAKE 1 BY MOUTH EVERY DAY NEEDED FOR ANXIETY active Not Available Not Available No t Available Elmiron 100 mg capsule 10/06 completed Medicati on Descript ion: pentosan polysulf ate sodium; Route:or al; refills: 0 Not Available Not Available Not Available metronida zole 500 mg tablet 08/06 completed Not Available Not Available Not Available acetamino phen 300 mg-codein e 30 mg tablet 10/06 completed Not Available Not Available Not Available acyclovir 400 mg tablet TAKE ONE TAB 5 TIMES PER DAY FOR 10 DAYS 08/06 completed Not Available Not Available Not Available valacyclo vir 500 mg tablet Take 4 tablets every 12 hours by oral route as directed . 08/06 completed Not Available Not Available Not Available sulfameth oxazole 800 mg-trimet hoprim 160 mg tablet 08/06 completed Not Available Not Available Not Available doxycycli ne monohydra te 100 mg tablet 01/28 completed Not Available Not Available Not Available tramadol 50 mg tablet TAKE 1 TO 2 TABLETS BY MOUTH EVERY 6 HOURS NEEDED FOR PAIN 08/06 completed Not Available Not Available Not Available triamcino lone acetonide 0.1 % topical cream APPLY THIN COAT TO AFFECTED AREA TWICE A DAY 08/06 completed Not Available Not Available Not Available prednison e 10 mg tablets in a dose pack TAKE 6 TABLETS ON DAY 1 DIRECTED ON PACKAGE AND DECREASE BY 1 TAB EACH DAY FOR A TOTAL OF 6 DAYS 08/06 completed Not Available Not Available Not Available meloxicam 7.5 mg tablet TAKE 1 TABLET BY MOUTH ONCE DAILY WITH FOOD 01/28 completed Not Available Not Available Not Available propranol ol 10 mg tablet TAKE 2 TABLETS BY MOUTH 3 TIMES A DAY 08/06 completed Not Available Not Available Not Available trazodone 100 mg tablet TAKE 1 TABLET BY MOUTH EVERY DAY AT BEDTIME NEEDED 09/30 completed Not Available Not Available Not Available cephalexi n 500 mg capsule TAKE 1 CAPSULE ORAL ROUTE 4 TIMES PER DAY FOR 5 DAYS 08/06 completed Not Available Not Available Not Available pantopraz ole 40 mg tablet,de layed release TAKE 1 TABLET BY MOUTH EVERY DAY 01/28 completed Not Available Not Available Not Available oseltamiv ir 75 mg capsule TAKE 1 CAPSULE BY MOUTH TWICE DAILY FOR 5 DAYS 08/06 completed Not Available Not Available Not Available cabergoli ne 0.5 mg tablet 08/06 completed Not Available Not Available Not Available benztropi ne 1 mg tablet 10/06 completed Not Available Not Available Not Available clindamyc in 2 % vaginal cream INSERT 1 APPLICAT ORFUL VAGINALL Y EVERY NIGHT FOR 7 DAYS 01/28 completed Not Available Not Available Not Available furosemid e 20 mg tablet 08/06 completed Not Available Not Available Not Available ziprasido ne 40 mg capsule TAKE 1 CAPSULE BY MOUTH TWICE A DAY 09/29 completed Not Available Not Available Not Available gabapenti n 100 mg capsule TAKE 1 CAPSULE BY MOUTH EVERY NIGHT AT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
--- OUTSIDE RECORDS SUMMARY | 2024-09-09 23:52 | XMS_ITS | Continuity of Care Document ---
Author Organization [facility], [facility] Address [address] [place] [address] Care Team Providers Care Junior Sales Representative Name Role Phone REYES LOVE Primary Care Provider Assessment No assessment recorded. Plan of Treatment Reminders Order Date Submit Date Provider Last Modified By Organization Details Last Modified Time Details Appointments None recorded. Lab prolactin, serum 2024 025 [facility], [address] [place] [address], [id number], 19:13:33 iron + total iron-ethel ng capacity (TIBC), serum 2024 025 [facility], [address] [place] [address], [id number], 19:11:41 vitamin B12 + folate, serum or blood 2024 025 [facility], [address] [place] [address], [id number], 5 19:26:24 vitamin D, 25-hydroxy , total, serum 2024 025 [facility], [address] [place] [address], [id number], 5 19:26:22 CBC w/ auto diff 2024 025 [facility], [address] [place], [address], 19:38:57 CMP, serum or plasma 2024 025 [facility], [address] [place] [address], [id number], 19:11:42 TSH, serum or plasma 2024 025 [facility], [address] [place] [address], [id number], 19:13:01 Referral neurologic al surgeon referral 2024 025 [email or web address] 1 Ector Polanco III, MD, 17[address] [facility], [address], [phone], 09:08:48 Procedures None recorded. Surgeries None recorded. Imaging MRI, brain + pituitary, w/wo contrast 2024 025 [facility] (Centralized Scheduling), [address], [place], [address], 16:18:30 Medication Orders None recorded. Patient TargetsNo targets recorded. Patient InstructionsNo instructions recorded. Reason for Referral Neurological Surgeon Referra l for Neoplasm of pituitary gland Referring Physician: Toyin Walters, Family Medicine, Encounter Date: 08/06/2024 Results Created Date Observation Date Name Description Value Unit Range Abnormal Flag Note LastModifiedBy Organization Detail LastModifiedTime 08/12/1908/11/2024 MRI, brain + pitui tary, w/wo contr ast No observ ation record ed. [email or web address] [facility] [address], [place], [address], 08/12/2024 08:47:59 08/13/19 25 08/11/2024 MRI, brain + pitui tary, w/wo contr ast No observ ation record ed. [facility] [address] [place], [address], 08/28/2024 19:04:21 Result Notes None recorded. Problems Name Problem SNOMED Code Status Onset Date Resolution Date Notes Provider Name and Address Organization Details Recorded Time Urinary tract infectious disease 72789807 Active 2015 Provide r: Gt Grubbs ;Status : Active Not Available On license of [facility] 6 05:26:23 Slowing of urinary stream 49357424 Active 2015 Provide r: Gt Grubbs ;Status : Active Not Available On license of [facility] 6 05:26:23 Pain of left wrist 712045717892 102 Active 2023 ESPERANZA ROSENBERG DO [address] [place], [address] , [facility] 4 13:39:32 Ganglion cyst of left dorsal wrist 936523070240 39708 Active 2023 [place] [address] [place] [address], [phone] [place] [address] 4 13:39:58 Problem Notes None recorded. Procedures Surgical History Date Name Laterality Status Provider Name and Address Organization Details Recorded Time 4 Op Note completed HELEN DIGGS MD [address] [place] [address], [phone], [facility] 10/01/2023 10:29:40 4 OT Evaluation - Moderate complexity cancelled EDWARD LÓPEZ/L, CHT [address] [place] [address], [phone] [place] [address] 09/20/2023 08:01:37 4 OT Therapeutic Exercise cancelled EDWARD LÓPEZ/L, CHT [address] [place] [address], [phone], [facility] 09/20/2023 08:01:37 4 PT Hot/Cold Pack cancelled GENARO ASTUDILLO OTR/L, CHT [address] [place] [address], [phone] [place] [address] 09/20/2023 08:01:37 4 OT Evaluation - Moderate complexity completed GENARO ASTUDILLO OTR/L, CHT [address] [place], [address], [facility] 09/16/2023 08:00:05 4 OT Therapeutic Exercise completed GENARO ASTUDILLO OTR/L, CHT [address] [place], [phone], [facility] 09/16/2023 12:15:34 4 PT Hot/Cold Pack completed GENARO ASTUDILLO OTR/L, CHT [address] [place] [address], [phone], [facility] 09/16/2023 12:15:14 4 Op Note completed EHLEN DIGGS MD [address] [place], [phone], [facility] 09/23/2023 15:17:45 [place] Teeth Extraction completed Ailin Whitney [facility] 10/07/2019 13:44:22 Imaging Results None recorded. Procedure Notes None recorded. Medical Equipment None Reported. Allergies Allergen ID Allergen Name Allergen Category Reaction Reaction Severity Criticality Documentation Date Start Date Code Code System Note Provider Name and Address Organization Details Recorded Time 077293 Product containin g penicilli n (product) medicatio n Not available Not available Not available 10/07/2019 27507 8001 SNOMED Ailin Whitney [facility] 0 13:42:02 Medications Name Sig Start Date [...] and Address Organization Details Last Updated DateTime 5 165.1 cm 31.3 kg/m2 45801.3 7 g 97 /min 99 % 99 % 102/70 mm[Hg] Alexsandra Augustin [facility] 5 10:37:45 Social History Question Answer Notes LastModified by [employer] Details LastModified Time Tobacco Smoking Status Never Smoker Quit in 2014 Allison knight [facility] 05/24/2023 15:40:17 Marital Status Information not available 10/07/2019 What Was The Date Of Your Most Recent Tobacco Screening? 10/21/2023 [email or web address] Information not available 10/21/2023 Sex: Unknown Functional Status Question Answer Note LastModified by [employer] Details LastModified Time What is your level of alcohol consumption? 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 Information not available 10/07/2019 Mental Status [...] Details Recorded Time MMR 03/12/2019 completed Allison knight [facility] 05/24/2023 15:39:49 MMR 11/03/2020 completed Allison knight, [facility] 05/24/2023 15:39:49 Tdap 08/31/2020 [facility]23 15:39:49 Past Encounters Encounter ID Performer Location Encounter Start Date Encounter Closed Date Diagnosis/Indication Diagnosis SNOMED-CT Code Diagnosis ICD10 Code Diagnosis Note [id number] TOYIN WALTERS PA-C [facility] [address] [place] [address] 08/06/2024 10:28:42 08/06/2024 11:18:50 Neoplasm of pituitary gland 366160085 D49.7 MRI ordered today.Neur o surg referral placed.I would like pt to see their office once more following MRI.Prolac tin levels checked in office today as well Fatigue 92940214 R53.83 Health Concerns Section Related Observation LastModified by Organization Detai ls LastModified Time None Recorded Concern Status LastModified by Organization Details LastModified Time None Recorded Payers Encounter Date Sequence Insurance Name Policy Number Policy Austin Covered Member ID Austin Member ID Guarantor Name 08/06/2024 SLIDING FEE SCHEDULE - DISCOUNT Ana He Notes Date Note Type Note Provider Name and Address Organization Details Recorded Time 08/06/2024 text/html 29 year old annie sears patient presents to the office with complaints [...] currently taking any supplementation. TOYIN WALTERS PA-C [facility] [place], [address], [facility] 08/11/2024 15:09:14 OBGyn Episode No OBEpisode recorded.
--- NOTE | 2024-09-09 23:54 | HMH.EDCP ---
Discharge Plan Disposition Patient Disposition: Admitted Prescriptions Prescriptions: No Action valacyclovir [Valtrex] 500 mg tablet 500 mg PO BID 3 Days Qty: 6 0RF Vraylar 1.5 mg capsule 1.5 mg PO DAILY fluoxetine [Prozac] 40 mg capsule 80 mg PO DAILY Qty: 60 4RF loratadine 10 MG tablet 10 mg PO DAILY ondansetron 4 mg tablet,disintegrating 4 mg PO Q6H PRN (Reason: nausea and vomiting) Qty: 10 0RF oseltamivir [Tamiflu] 75 mg capsule 75 mg PO BID 5 Days Qty: 10 0RF Referrals Follow up/Referrals: Provider,Referral, [Primary Care Provider, Medical] - See instructions Clinical Impressions Clinical Impression: Chest pain Print Language Print Language: Telugu Discharge ED Provider: Shelia Parks General Chief Complaint: Chest Pain Stated Complaint: chest pain Time Seen by Provider: 09/09/24 23:32 Mode of Arrival: Ambulatory Source of Information: Patient Description of Symptoms (Recalled from ER Triage Doc. by RN): Pt presents to ED for CP that started approx 1 hour ago. Pt states she's under extreme stress right now and feels like it's killing her. Pt states she take Prozac for anxiety and she took 2 doses today. Pt is A&O*4 and rates pain 4/10 at this time. History of Present Illness HPI narrative: 29-year-old female presents to the ER for left-sided stabbing chest pain that started 1 hour ago and lasted only about 10 minutes. Patient reports she has been under extreme stress for the last few years and feels like it is all piling on. She states she feels like it is killing her. She states she took 2 doses of her Prozac today because her anxiety was so high. She reports to me she has no chest pain at this time. She states she has been having random nausea and vomiting for a few weeks without any other specific symptoms. She states I do not know if this could all be a panic attack . Patient is very anxious on arrival. No fevers, chills, dizziness, numbness, tingling, weakness, diarrhea, constipation, dysuria, hematuria, or other associated symptoms. No recent illness other than symptoms described. Related Data Home Medications ?Medication ?Instructions ?Recorded ?Confirmed loratadine 10 mg tablet 10 mg PO DAILY Allergy symptoms 09/16/21 03/19/22 cariprazine 1.5 mg capsule 1.5 mg PO DAILY 05/14/22 (Vraylar) Previous Rx's ?Medication ?Instructions ?Recorded valacyclovir 500 mg tablet 500 mg PO BID 3 days #6 tabs 10/23/21 (Valtrex) fluoxetine 40 mg capsule (Prozac) 80 mg (2 x 40 mg) PO DAILY #60 caps 06/13/22 ondansetron 4 mg disintegrating 4 mg PO Q6H PRN nausea and 05/24/24 tablet vomiting #10 tabs oseltamivir 75 mg capsule (Tamiflu) 75 mg PO BID 5 days #10 caps 05/24/24 Allergies Allergy/AdvReac Type Severity Reaction Status Date / Time Penicillins Allergy Mild Verified 03/19/22 09:17 [facility] Disclaimer: The information contained in this section may have been updated after the patient was seen, as this information can be updated by other users. Medical History (Updated 09/10/24 @ 02:32 by Shelia Parks MD) Bipolar II disorder Social History Smoking Status: Unknown if ever smoked alcohol intake: never substance use type: denies use current occupational status: unemployed Travel in the last 8 weeks?: None household members: spouse housing: house number of children: 1 Other Medical History Have you received the Flu Vaccine for this season: No Have you received the Pneumonia Vaccine: No ROS Obtained: Yes Systems reviewed as appropriate & no additional complaints except as documented Per HPI Physical Exam General General appearance: alert and anxious (Patient is obviously extremely anxious, she gets very worried about every question I ask) Head Head exam: atraumatic and normocephalic Eye Eye exam: Present PERRL and EOMI ENT ENT exam: Present mucous membranes moist Neck Neck exam: Present normal inspection and full ROM Chest Chest inspection: Present symmetric chest wall rise Respiratory Respiratory exam: Present normal lung sounds bilaterally; Absent respiratory distress, wheezes or stridor Cardiovascular Cardiovascular exam: Present regular rate (Heart rate 80s to 90s during my exam) and normal rhythm Abdominal Exam Abdominal exam: Present soft; Absent distention or tenderness Extremities Exam Extremities exam: Present full ROM and normal capillary refill; Absent tenderness or edema Neurological Exam Neurological exam: Present alert and oriented X3; Absent motor sensory deficit Psychiatric Psychiatric exam: Present normal affect and normal mood Skin Skin exam: Present warm and dry HEART Score HEART Score HEART Score assessment performed?: Yes History (anamnesis): Slightly suspicious ECG: Non-specific disturbance Age: <45 years Risk factors: 1-2 risk factors Troponin: </= normal limit HEART Score: 2 Critical Care Critical Care Time Critical Care Time: No Medical Decision Making Medical Records Medical records reviewed: Yes I reviewed the patient's medical records. MR Comment: Previous ECG was reviewed and does not have the slight inferior lead changes that are present on today's ECG Jelani Inquiry Pt receiving controlled substance: No Vital Signs Vital Signs: 09/09/24 23:32 09/09/24 23:32 09/09/24 23:45 Temperature 97.9 F Temperature Source Oral Pulse Rate 103 H 93 H Pulse Rate [Left] 112 H Respiratory Rate 18 Blood Pressure 158/95 H Blood Pressure [Right Arm] 173/98 H Blood Pressure Mean [Right Arm] 123 02 Sat by Pulse Oximetry 99 95 Oxygen Delivery Method Room Air 09/10/24 00:00 09/10/24 00:30 09/10/24 01:00 Temperature Temperature Source Pulse Rate 99 H 87 78 Pulse Rate [Left] Respiratory Rate Blood Pressure 149/84 H 151/91 H 140/88 Blood Pressure [Right Arm] Blood Pressure Mean [Right Arm] 02 Sat by Pulse Oximetry 98 100 98 Oxygen Delivery Method 09/10/24 01:30 09/10/24 01:43 Temperature Temperature Source Pulse Rate 102 H 82 Pulse Rate [Left] Respiratory Rate Blood Pressure 143/84 H 143/84 H Blood Pressure [Right Arm] Blood Pressure Mean [Right Arm] 02 Sat by Pulse Oximetry 100 99 Oxygen Delivery Method Lab Data Labs: Lab Results 09/09/24 23:30: WBC 10.5, RBC 4.64, Hgb 11.5 L, Hct 36.5 L, MCV 78.7 L, MCH 24.8 L, MCHC 31.5 L, RDW 22.2 H, Plt Count 382, MPV 10.4, Neut % (Auto) 67.7, Lymph % (Auto) 23.2, [place] % (Auto) 7.7, Eos % (Auto) 0.8, Baso % (Auto) 0.3, Neut # (Auto) 7.1, Lymph # (Auto) 2.5, [place] # (Auto) 0.8, Eos # (Auto) 0.1, Baso # (Auto) 0.0, VBG pH 7.38, VBG pCO2 40.7, VBG pO2 56.8 H, VBG HCO3 23.3, VBG Total CO2 24.6, VBG O2 Saturation 88.0 H, VBG Base Excess -1.9, VBG Lactic Acid 1.3, Sodium 138, Potassium 3.8, Chloride 97 L, Carbon Dioxide 29, Anion Gap 15.8 H, BUN 12, Creatinine 0.90, Estimated Creat Clear 124, Estimated GFR 74, Est GFR ( Amer) 90, Glucose 95, Calcium 10.0, Total Bilirubin 0.5, AST 48 H, ALT 37, Alkaline Phosphatase 73, Troponin I < 0.01, Total Protein 8.7 H, Albumin 5.0, Globulin 3.7 H, Albumin/Globulin Ratio 1.4, TSH 1.61, Free T4 1.10, Serum HCG, Qual Negative, HCV Ab MAICOL w/Rflx PCR Qn Negative, HIV Ag/Ab Combo Qual Negative 09/09/24 23:30 09/09/24 23:30 Response Orders (Tests/Meds): ED MEDICATIONS Generic Name Dose Route Start Last Admin Trade Name Freq PRN Reason Stop Dose Admin Nitroglycerin 0.4 mg 09/09/24 23:32 09/09/24 23:46 Nitroglycerin 0.4mg Sl Tablet SL 09/10/24 23:33 0.4 mg Q5MINP PRN Administration Chest Pain Discontinued Medications Generic Name Dose Route Start Last Admin Trade Name Freq PRN Reason Stop Dose Admin Aspirin 324 mg 09/09/24 23:32 09/09/24 23:46 Aspirin 81mg Chewable Tablet PO 09/09/24 23:33 324 mg ONCE ONE Administration Hydroxyzine Pamoate 50 mg 09/09/24 23:46 09/10/24 00:30 Hydroxyzine Pamoate 25mg Capsule PO 09/09/24 23:47 50 mg ONCE ONE Administration Iopamidol 70 ml 09/10/24 00:34 09/10/24 00:35 Iopamidol-370 (76%);100ml Bottle IV 09/10/24 00:35 70 ml ONCE ONE Administration Morphine Sulfate 4 mg 09/09/24 23:32 09/09/24 23:46 Morphine 4mg/Ml Syringe IV 09/09/24 23:33 4 mg ONCE ONE Administration Ondansetron HCl 4 mg 09/09/24 23:32 09/09/24 23:46 Ondansetron 4mg/2ml Vial IV 09/09/24 23:33 4 mg ONCE ONE Administration Sodium Chloride 50 ml 09/10/24 00:34 09/10/24 00:35 0.9 % Sodium Chloride 50 Ml Vial IV 09/10/24 00:35 50 ml ONCE ONE Administration Sodium Chloride 10 ml 09/10/24 00:34 09/10/24 00:35 Sodium Chloride 0.9% 10ml Syr (Rad Only) IV 09/10/24 00:35 10 ml ONCE ONE Administration ORDERS Category Date Time Status CT angio chest PE protocol Stat Cat Scan 09/09/24 23:32 Completed XR chest portable Stat Exams 09/09/24 23:33 Completed Complete Blood Count Auto Diff Stat Lab 09/09/24 23:30 Completed Comprehensive Metabolic Panel Stat Lab 09/09/24 23:30 Completed Free T4 (Free Thyroxine) Stat Lab 09/10/24 00:17 Completed HCG Qualitative, Serum Stat Lab 09/09/24 23:30 Completed HIV Combo Stat Lab 09/09/24 23:30 Completed Hepatitis C Ab Qual. W/ RFX Stat Lab 09/09/24 23:30 Completed TSH [Thyroid Stimulating Hormone] Stat Lab 09/10/24 00:17 Completed Troponin I Q3H Lab 09/10/24 02:45 Ordered Troponin I Q3H Lab 09/10/24 05:45 Ordered Troponin I Stat Lab 09/09/24 23:30 Completed Venous Blood Gas Stat RT 09/09/24 23:30 Completed ECG Request Stat Y 09/10/24 02:23 Ordered MDM Narrative Medical Decision Narrative: In summary, this 29-year-old female with history of anxiety and panic attacks presents to the emergency department today with very brief stabbing left-sided chest pain in the setting of significant anxiety. On initial evaluation patient is hemodynamically stable, she was initially tachycardic on arrival but during my exam had normal rate and rhythm, afebrile, GCS 15, asymptomatic at this time, benign cardiopulmonary exam, benign abdominal exam, no peripheral edema, normal capillary refill, patient is extremely anxious and seems to get more anxious with each question I asked. She denies SI or HI. Patient does report having taken an extra dose of her Prozac 3 times in the last week. Differential diagnosis includes but is not limited to Prozac overdose, serotonin syndrome, anxiety, panic attack, ACS, PE, esophageal spasm, arrhythmia, electrolyte abnormality, among others. Ruling out most morbid conditions for my assessment. Based on these concerns, I ordered serum labs, cardiac workup, CT imaging. I discussed this case with poison control, spoke with HAI Griffin regarding patient having taken an increased dose of Prozac the last few days. Patient reports she typically takes her Prozac in the morning but omid also took a dose at 8 PM. Poison control RN and I reviewed the dose that she has been taking in an attempt to gain control of her anxiety, not out of self-harm attempt, and also reviewed patient's QTc which is normal as well as patient's other symptoms and vitals. RN recommended observation until 6 hours from the time that patient took her last dose, which would be observation until 2 AM. I appreciate her recommendations. No specific lab or imaging recommendations. ECG personally interpreted demonstrates sinus tachycardia, rate 103, left axis deviation, normal TN and QTc, no STEMI though patient does have some inferior changes with reciprocal lateral lead changes, possible inappropriate lead placement versus prior inferior ischemia. Patient received morphine, Zofran, hydroxyzine, aspirin, nitro initially for treatment. Labs personally reviewed demonstrate no leukocytosis, slight anemia hemoglobin 11.5, normal platelets, VBG with normal pH and normal lactic as well as normal pCO2, trace elevation anion gap is nonspecific at this time, initial troponin undetectably low less than 0.01. I discussed this case with Dr. Paula, he suspects inappropriate lead placement for the ECG and recommends repeating it, but states regardless he does not appreciate signs of ischemia and is reassured that the patient is currently asymptomatic at this time. He recommends if the patient remains asymptomatic with undetectable troponins that should be followed up in cardiology clinic. Patient returned from receiving imaging studies and repeat ECG was performed, EKG leads were double checked for appropriate placement and repeat ECG was personally interpreted demonstrating sinus tachycardia, rate 107, normal axis, normal TN and QTc, no STEMI, abnormalities that were seen on the initial ECG on the inferior leads are absent at this time reassuring that the changes were secondary to inappropriate lead placement. XR personally interpreted demonstrates no acute intrathoracic abnormality, see radiology read for final interpretation. CT imaging personally interpreted demonstrate no large PE or infiltrate, see radiology read for final interpretation. On reassessment patient remains asymptomatic. She is resting more comfortably, anxiety has improved, heart rate 85 at this time. She was placed in the ED observation at 0120 for continued monitoring and serial troponins to rule out evolving AR and preclude unnecessary admission. She was frequently reassessed and remained on the rn cardiac cath. She continues to be asymptomatic. Repeat troponin pending. At 0210 patient called out stating she was having chest pain again. As needed nitro is being administered, repeat EKG being obtained. Repeat ECG personally interpreted demonstrates sinus rhythm, rate 87, normal axis, normal TN and QTc, no STEMI, no dynamic changes. Patient having recurrent chest pain in the ER despite reassuring workup thus far, I believe she should be admitted to the hospital for continued chest pain management and workup. While I have relatively low suspicion for cardiac etiology I do not have other explanation for her pain and believe the safest option is for her to be managed inpatient until cleared by cardiology. Patient is comfortable with this plan. I discussed this case with the hospitalist who graciously accepted the patient for admission. Patient admitted in stable condition. Total time in ED observation: 1 hour 15 minutes
[2024-09-09 23:58] LABS: HCG Qualitative, Serum Negative (Negative)
[2024-09-10] VITALS (13 sets, daily range): BP systolic 101–158; BP diastolic 51–91; PULSE 66–102; RESP 12–16; TEMP 36.6–36.8; O2SAT 97–100; BMI 32.1
[2024-09-10 00:01] LABS: Troponin I < 0.01 ng/ml (0.00-0.034)
--- NOTE | 2024-09-10 00:34 | ECG_ITS ---
APPROVED REPORT Exam: Resting ECG HR:107 bpm ECG Measurements Heart Rate 107 AXES NV 173 P 81 QRSd 93 QRS 86 QT 355 T 69 QTc 418 Conclusion SINUS TACHYCARDIA NONSPECIFIC T-WAVE ABNORMALITY No STEMI Electronically signed by : ANALY LIZ, 09/10/2024 06:35:14
[2024-09-10] MEDS: IOPAMIDOL-370 (76%);100ML BOTTLE 70 ML IV (00:35)
[2024-09-10] MEDS: SODIUM CHLORIDE 0.9% 10ML SYR (RAD ONLY) 10 ML IV (00:35)
[2024-09-10] MEDS: 0.9 % SODIUM CHLORIDE 50 ML VIAL IV (00:35)
[2024-09-10 00:44] LABS: Free T4 (Free Thyroxine) 1.10 ng/dl (0.78-2.19)
[2024-09-10 00:49] LABS: Hepatitis C Ab Qual. W/ RFX NEGATIVE (Negative)
[2024-09-10 01:15] LABS: Thyroid Stimulating Hormone 1.61 uIU/mL (0.465-4.68)
--- NOTE | 2024-09-10 02:32 | ECG_ITS ---
APPROVED REPORT Exam: Resting ECG HR:87 bpm ECG Measurements Heart Rate 87 AXES NE 157 P 78 QRSd 98 QRS 79 QT 388 T 61 QTc 433 Conclusion SINUS RHYTHM WITH SINUS ARRHYTHMIA NONSPECIFIC T-WAVE ABNORMALITY No STEMI Electronically signed by : ANALY LIZ, 09/10/2024 06:36:13
--- NOTE | 2024-09-10 02:49 | P.HP_ITS ---
<Statement entered by Eddie Amador MD - 09/14/24 16:19> Personally evaluated patient and agree with plan of care as outlined by the [employer]. History of Present Illness *Admission Date: 09/10/24 *Reason for visit:: Chest pain *History of present illness: Ms. He is a 29-year-old female presents ER with complaints of chest pain. Patient has past medical history of bipolar disorder, panic attacks, and anxiety. She states chest pain started around 20-30 tonight. She reports pain was stabbing at first and it felt like her heart was beating fast. She denies palpitations. She states chest pain is located on the left side. She the chest pain feels more sore than sharp now. She rates it a 3-4 out of 10. She states she had accompanying shortness of breath, nausea, vomiting, lower left quadrant abdominal pain, chills, and headache. She states the chest pain radiates to her left shoulder. She states the pain comes and goes. Patient denies fever, cough, congestion, runny nose, diarrhea, constipation, lightheadedness, dizziness, or syncope. Patient states she believes this chest pain is anxiety related. [facility] Disclaimer: The information contained in this section may have been updated after the patient was seen, as this information can be updated by other users. Medical History Bipolar II disorder Social History Smoking Status: Unknown if ever smoked alcohol intake: never substance use type: denies use current occupational status: unemployed Travel in the last 8 weeks?: None household members: spouse housing: house number of children: 1 Other Medical History Have you received the Flu Vaccine for this season: No Have you received the Pneumonia Vaccine: No Review of Systems Constitutional Constitutional: Reports chills, Denies fever(s) and Reports headache(s) ENT Ears, Nose, Mouth, and Throat: Denies dizziness, Reports headache(s) and Denies nasal discharge *Cardiovascular Cardiovascular: Reports chest pain, Reports dyspnea and Denies lightheadedness *Respiratory Respiratory: Denies cough and Reports dyspnea *Gastrointestinal Gastrointestinal: Denies constipation, Denies loose stools, Reports nausea and Reports vomiting *Genitourinary Genitourinary: Reports system reviewed and no additional complaints, except as documented *Musculoskeletal Musculoskeletal: Reports system reviewed and no additional complaints, except as documented *Neurologic Neurologic: Denies dizziness and Reports headache(s) Meds Home Medications and Allergies Home Medications ?Medication ?Instructions ?Recorded ?Confirmed ?Type fluoxetine 40 mg capsule (Prozac) 80 mg (2 x 40 mg) PO DAILY #60 caps 06/13/22 09/10/24 Rx clonidine HCl 0.1 mg tablet 0.1 mg PO HS PRN Insomnia 09/10/24 09/10/24 History ziprasidone HCl 80 mg capsule 80 mg PO BID 09/10/24 History New Prescriptions to Start Prescriptions: Allergies Allergy/AdvReac Type Severity Reaction Status Date / Time Penicillins Allergy Mild Verified 03/19/22 09:17 Exam Data for Last 24 hours Vital signs and Labs for Last 24 Hours: Temp Pulse Resp BP Pulse Ox O2 Del Method 97.9 F 91 H 13 137/79 98 Room Air 09/09/24 23:32 09/10/24 02:30 09/10/24 02:30 09/10/24 02:30 09/10/24 02:30 09/09/24 23:32 Laboratory Results - last 24 hr 09/09/24 23:30: WBC 10.5, RBC 4.64, Hgb 11.5 L, Hct 36.5 L, MCV 78.7 L, MCH 24.8 L, MCHC 31.5 L, RDW 22.2 H, Plt Count 382, MPV 10.4, Neut % (Auto) 67.7, Lymph % (Auto) 23.2, [place] % (Auto) 7.7, Eos % (Auto) 0.8, Baso % (Auto) 0.3, Neut # (Auto) 7.1, Lymph # (Auto) 2.5, [place] # (Auto) 0.8, Eos # (Auto) 0.1, Baso # (Auto) 0.0, VBG pH 7.38, VBG pCO2 40.7, VBG pO2 56.8 H, VBG HCO3 23.3, VBG Total CO2 24.6, VBG O2 Saturation 88.0 H, VBG Base Excess -1.9, VBG Lactic Acid 1.3, Sodium 138, Potassium 3.8, Chloride 97 L, Carbon Dioxide 29, Anion Gap 15.8 H, BUN 12, Creatinine 0.90, Estimated Creat Clear 124, Estimated GFR 74, Est GFR ( Amer) 90, Glucose 95, Calcium 10.0, Total Bilirubin 0.5, AST 48 H, ALT 37, Alkaline Phosphatase 73, Troponin I < 0.01, Total Protein 8.7 H, Albumin 5.0, Globulin 3.7 H, Albumin/Globulin Ratio 1.4, TSH 1.61, Free T4 1.10, Serum HCG, Qual Negative, HCV Ab MAICOL w/Rflx PCR Qn Negative, HIV Ag/Ab Combo Qual Negative I & O for Last 24 hours: Intake & Output 09/07/24 09/08/24 09/09/24 09/10/24 23:59 23:59 23:59 23:59 Weight 85.275 kg *Routine HEENT Exam Head: Present normocephalic and atraumatic Eye: Present EOMI and PERRL ENT: Present mucous membranes moist and oropharynx clear *Routine Neck Exam Neck: Present supple and full ROM Routine Chest/Breast/Axilla Exam Chest wall: Present tenderness (Reproducible pain located to left chest) *Routine Respiratory Exam Respiratory: Present CTA bilaterally, normal respiratory effort, able to speak in complete sentences and symmetric chest movement; Absent accessory muscle use or respiratory distress *Routine Cardiovascular Exam Cardiovascular: Present RRR, Normal S1 and Normal S2 *Routine Abdominal Exam Abdominal: Present soft and normoactive bowel sounds; Absent tenderness or d istended *Routine Rectal Exam Rectal:: deferred *Routine Genitalia Exam Genitalia:: deferred *Routine Extremities Exam Extremities: Present full ROM, pulses intact and normal capillary refill; Absent edema *Routine Skin Exam Skin: Present intact, dry and warm *Routine Neurological Exam Neurological: Present alert, oriented X3 and CN II-XII intact Assessment and Plan *Assessment and plan (1) Chest pain: Status: Acute Category: Medical Code(s): R07.9 - Chest pain, unspecified Plan: Chest x-ray reviewed by me and negative for acute findings Chest CTA reviewed by me and negative for acute findings EKGs were reviewed by me, sinus tachycardia 103 and 107 respectively, QTc 417 and 418 respectively Troponin on admission <0.01 Trend troponins Telemetry monitoring Cardiology consulted in the ER recommend follow-up outpatient (2) Panic attack: Status: Acute Category: Medical Code(s): F41.0 - Panic disorder [episodic paroxysmal anxiety] Plan: Continue home medications Vraylar and Prozac Add Vistaril 25 mg every 6 hours as needed for anxiety (3) Bipolar II disorder: Status: Acute Category: Medical Code(s): F31.81 - Bipolar II disorder Plan: Continue patient's home dose of Vraylar 1.5 mg daily (4) Anxiety: Status: Acute Category: Medical Code(s): F41.9 - Anxiety disorder, unspecified Plan: Continue patient's home dose of Prozac 80 mg daily Add Vistaril 25 mg every 6 hours as needed for anxiety Plan Spoke with Dr. Shelia Parks, emergency physician. Decision to admit based on intermittent chest pain and need for serial troponins, continued cardiac monitoring, and anxiety.
[2024-09-10 03:00] LABS: Troponin I < 0.01 ng/ml (0.00-0.034)
--- NOTE | 2024-09-10 04:04 | PC.NURSE ---
pt arrived to floor from ed via wheelchair at 0400.
--- NOTE | 2024-09-10 04:54 | PC.NURSE ---
Ice water passed, trash and linens emptied, bedside table cleaned.
[2024-09-10 05:57] LABS: Hematocrit 32.4 % (37.0-47.0); Immature Granulocytes % 0.2 %; Mean Corpuscular HGB Conc 31.2 g/dL (31.8-35.4); Mean Corpuscular Hemoglobin 24.6 pg (27.0-31.2); Mean Corpuscular Volume 79.0 fl (81-99); Nucleated Red Blood Cells % 0 %; Platelet Count 326 K/mm3 (142-424); Red Blood Count 4.10 M/mm3 (4.20-5.40); Red Cell Distribution Width-SD 60.9 fL; White Blood Count 8.2 K/mm3 (4.8-10.8)
[2024-09-10 06:03] LABS: Hemoglobin 9.9 g/dL (12.2-16.2)
[2024-09-10 06:33] LABS: Anion Gap 15.0 mEq/L (5-15); Blood Urea Nitrogen 12 mg/dl (7-17); Calcium 9.4 mg/dl (8.4-10.2); Carbon Dioxide 27 mmol/L (22.0-30.0); Chloride 99 mmol/L (98-107); Creatinine Clearance Estimated 140 mL/min (50-200); Creatinine,Serum 0.80 mg/dl (0.52-1.04); Estimated Glomerular Filt Rate 85 ml/min (>60); GFR (African American) 103 ML/MIN (>60); Glucose 90 mg/dl (74-100); Potassium 4.0 mmoL/L (3.5-5.1); Sodium 137 mmol/L (136-145)
[2024-09-10 06:35] LABS: Troponin I < 0.01 ng/ml (0.00-0.034)
--- NOTE | 2024-09-10 07:50 | HMH.PHAINT1 ---
Pharmacy Intervention Comments: HOME MEDICATION LIST VERIFIED USING LIST FROM OUTPATIENT PHARMACY AND PT INTERVIEW
--- NOTE | 2024-09-10 08:11 | PC.NURSE ---
Pt. was admitted overnight from the ED for Anxiey and chest pain. Pt. presented to the ED with sharp stabbing chest pain. Pt. c/o of a lot of stress and anxiety lately. Pt, also has panic attacks sometimes. When pt. was admitted to the floor she was chest pain free. She stated it is probably related to anxiety. Pt is alert and orientated x 4. Pt. on room air. After admission questions done. Pt. went to sleep. Personal items and call olea in reach.
--- NOTE | 2024-09-10 11:01 | EXP.CARD.CON ---
History of Present Illness History of Present Illness Consult date: 09/10/24 Requesting physician: Eddie Amador Chief complaint: chest pain History of present illness: 29-year-old white female without known cardiovascular disease but a positive history of bipolar, anxiety, panic. Presented to the hospital last night with single episode of severe sharp chest pain. Symptoms began at rest and not affected by activity. States she has not typically an excellent functional capacity without any symptoms going up stairs or incline. She is negative for high blood pressure high cholesterol diabetes tobacco and drug use. Negative family history of premature cardiovascular disease. She did have a normal echo here in 2021. She was kept overnight for observation by hospitalist. She has normal serial troponins x 3, EKG shows sinus rhythm without acute ischemic changes, CTA chest negative. On my evaluation this mornign patient reports complete resolution of symptoms. Patient reports she used to take atenolol daily to help with chest discomfort. [facility] Disclaimer: The information contained in this section may have been updated after the patient was seen, as this information can be updated by other users. Medical History Bipolar II disorder Social History Smoking Status: Unknown if ever smoked alcohol intake: never substance use type: denies use current occupational status: unemployed Travel in the last 8 weeks?: None household members: spouse housing: house number of children: 1 Review of Systems Constitutional Constitutional: Reports headache(s) Eyes Eyes: Denies loss of vision ENT Ears, Nose, Mouth, and Throat: Denies dizziness and Reports headache(s) *Cardiovascular Cardiovascular: Reports chest pain and Denies dyspnea *Respiratory Respiratory: Denies cough and Denies dyspnea *Gastrointestinal Gastrointestinal: Denies change in stool character, Denies nausea and Denies vomiting *Musculoskeletal Musculoskeletal: Denies muscle weakness Integumentary/Breasts Skin/Breast: Denies changing lesions *Neurologic Neurologic: Denies dizziness, Reports headache(s) and Denies loss of vision Exam Data for Last 24 hours Vital signs and Labs for Last 24 Hours: Temp Pulse Resp BP Pulse Ox O2 Del Method 97.8 F 66 15 101/51 L 99 Room Air 09/10/24 08:00 09/10/24 08:00 09/10/24 08:00 09/10/24 08:00 09/10/24 08:00 09/10/24 08:00 Laboratory Results - last 24 hr 09/09/24 23:30: WBC 10.5, RBC 4.64, Hgb 11.5 L, Hct 36.5 L, MCV 78.7 L, MCH 24.8 L, MCHC 31.5 L, RDW 22.2 H, Plt Count 382, MPV 10.4, Neut % (Auto) 67.7, Lymph % (Auto) 23.2, [place] % (Auto) 7.7, Eos % (Auto) 0.8, Baso % (Auto) 0.3, Neut # (Auto) 7.1, Lymph # (Auto) 2.5, [place] # (Auto) 0.8, Eos # (Auto) 0.1, Baso # (Auto) 0.0, VBG pH 7.38, VBG pCO2 40.7, VBG pO2 56.8 H, VBG HCO3 23.3, VBG Total CO2 24.6, VBG O2 Saturation 88.0 H, VBG Base Excess -1.9, VBG Lactic Acid 1.3, Sodium 138, Potassium 3.8, Chloride 97 L, Carbon Dioxide 29, Anion Gap 15.8 H, BUN 12, Creatinine 0.90, Estimated Creat Clear 124, Estimated GFR 74, Est GFR ( Amer) 90, Glucose 95, Calcium 10.0, Total Bilirubin 0.5, AST 48 H, ALT 37, Alkaline Phosphatase 73, Troponin I < 0.01, Total Protein 8.7 H, Albumin 5.0, Globulin 3.7 H, Albumin/Globulin Ratio 1.4, TSH 1.61, Free T4 1.10, Serum HCG, Qual Negative, HCV Ab MAICOL w/Rflx PCR Qn Negative, HIV Ag/Ab Combo Qual Negative 09/10/24 02:32: Troponin I < 0.01 09/10/24 05:48: WBC 8.2, RBC 4.10 L, Hgb 9.9 L D, Hct 32.4 L, MCV 79.0 L, MCH 24.6 L, MCHC 31.2 L, RDW 22.1 H, Plt Count 326, MPV 10.7 H, Neut % (Auto) 64.4, Lymph % (Auto) 27.6, [place] % (Auto) 6.9, Eos % (Auto) 0.5, Baso % (Auto) 0.4, Neut # (Auto) 5.3, Lymph # (Auto) 2.3, [place] # (Auto) 0.6, Eos # (Auto) 0.0, Baso # (Auto) 0.0, Sodium 137, Potassium 4.0, Chloride 99, Carbon Dioxide 27, Anion Gap 15.0, BUN 12, Creatinine 0.80, Estimated Creat Clear 140, Estimated GFR 85, Est GFR ( Amer) 103, Glucose 90, Calcium 9.4, Troponin I < 0.01 I & O for Last 24 hours: Intake & Output 09/07/24 09/08/24 09/09/24 09/10/24 23:59 23:59 23:59 23:59 Output Total 0 / 0 Balance 0 / 0 Weight 188 lb 187 lb 15.987 oz Constitutional Constitutional: no acute distress and cooperative *Routine HEENT Exam Eye: Present PERRL *Routine Respiratory Exam Respiratory: Present CTA bilaterally; Absent accessory muscle use, wheezes or crackles *Routine Cardiovascular Exam Cardiovascular: Present RRR, Normal S1 and Normal S2; Absent murmur, gallop or rubs *Routine Abdominal Exam Abdominal: Present soft; Absent tenderness *Routine Extremities Exam Extremities: Present pulses intact; Absent cyanosis or edema *Routine Skin Exam Skin: Present intact; Absent erythema or wounds *Routine Neurological Exam Neurological: Present alert and oriented X3 Routine Psychiatric Exam Psychiatric: Present cooperative Meds Home Medications and Allergies Home Medications ?Medication ?Instructions ?Recorded ?Confirmed ?Type buspirone 5 mg tablet 5 mg PO BID #60 tabs 09/10/24 Rx clonidine HCl 0.1 mg tablet 0.1 mg PO HS PRN Insomnia 09/10/24 09/10/24 History ferrous sulfate 325 mg (65 mg 325 mg PO DAILY 09/10/24 09/10/24 History iron) tablet (FeroSul) fluoxetine 20 mg capsule 40 mg PO DAILY 09/10/24 09/10/24 History ziprasidone HCl 80 mg capsule 80 mg PO BID 09/10/24 09/10/24 History New Prescriptions to Start Prescriptions: buspirone Susy Barrera Allergies Allergy/AdvReac Type Severity Reaction Status Date / Time Penicillins Allergy Mild Verified 03/19/22 09:17 Assessment and Plan *Assessment and plan (1) Chest pain: Status: Acute Category: Medical Code(s): R07.9 - Chest pain, unspecified (2) Anxiety: Status: Acute Category: Medical Code(s): F41.9 - Anxiety disorder, unspecified (3) Panic attack: Status: Acute Category: Medical Code(s): F41.0 - Panic disorder [episodic paroxysmal anxiety] Plan Chest Pain Unspecified, likely noncardiac - not anginal description, no CV risk factors, normal serial Trop and EKG, prior ECHO 2021 r/o congenital issues - ACS ruled out, ok to try resuming low dose BB for symptom control and we can f/u with her in the office for further management if desired. Pt tells me this was single episode though so reasonable to f/u with PCP. Anxiety/Bipolar/Panic - per Hospitalist CV stable for discharge.
--- NOTE | 2024-09-10 11:02 | EXP.DC.SUM ---
General Admission date:: 09/10/24 HPI HPI HPI: Ms. He is a 29-year-old female presents ER with complaints of chest pain. Patient has past medical history of bipolar disorder, panic attacks, and anxiety. She states chest pain started around 20-30 tonight. She reports pain was stabbing at first and it felt like her heart was beating fast. She denies palpitations. She states chest pain is located on the left side. She the chest pain feels more sore than sharp now. She rates it a 3-4 out of 10. She states she had accompanying shortness of breath, nausea, vomiting, lower left quadrant abdominal pain, chills, and headache. She states the chest pain radiates to her left shoulder. She states the pain comes and goes. Patient denies fever, cough, congestion, runny nose, diarrhea, constipation, lightheadedness, dizziness, or syncope. Patient states she believes this chest pain is anxiety related. Hospital Course Hospital Course Hospital Course: Ms. Marion is a 29-year-old female who presented to the emergency department yesterday with complaints of chest pain. She states that it felt sharp like needles, and then started feeling intermittently tight and her heart was beating fast. She does have a primary medical history of bipolar disorder, panic attacks, anxiety and iron deficient anemia. She denied shortness of breath, abdominal pain, fever, nausea, vomiting, chills, headache. Workup in the ED was benign. Negative serial troponins, EKG normal sinus rhythm, lab work was unremarkable with the exception of mild anemia, known to patient. Patient does have a extensive history of mental health issues and states that her anxiety has been much worse than normal lately. She also states she has been under a lot of stress at home and has been taking extra Prozac. She sees Dr. Garcia in [place]. #Chest pain #Panic attack #Bipolar 2 disorder #Anxiety ?Reassessment of patient this morning she states she is not having any chest pain. She states she is rested well throughout the night. She does endorse that she has been having increased anxiety and is currently seeing Dr. Ramachandran in [place] for behavioral health. She is currently prescribed fluoxetine 40 mg daily, Geodon 80 mg twice daily, clonidine 0.1 mg at bedtime as needed for insomnia. ?Discussed starting BuSpar 5 mg twice daily, discussed with patient she should take BuSpar morning and night. If she has a panic attack she can take an additional BuSpar 5 mg. Did discuss that she should only be taking her fluoxetine 40 mg once daily. ?Cardiology was consulted for chest pain. Patient had echo in 2021 which showed a normal EF of 55%. Patient also had outpatient workup for chest pain, wore a cardiac event monitor, no notable events. Heart score 0, no cardiovascular risk factors. Patient did have prescription for atenolol, she states that she did not tolerate it. #Iron deficiency anemia ?Patient states she has a history of iron deficiency anemia, is taken iron supplements daily at home. Total time spent on discharge 32 minutes in counseling, documentation, chart review, and direct care with patient. Exam Data for Last 24 hours Vital signs and Labs for Last 24 Hours: Temp Pulse Resp BP Pulse Ox O2 Del Method 97.8 F 66 15 101/51 L 99 Room Air 09/10/24 08:00 09/10/24 08:00 09/10/24 08:00 09/10/24 08:00 09/10/24 08:00 09/10/24 08:00 Laboratory Results - last 24 hr 09/09/24 23:30: WBC 10.5, RBC 4.64, Hgb 11.5 L, Hct 36.5 L, MCV 78.7 L, MCH 24.8 L, MCHC 31.5 L, RDW 22.2 H, Plt Count 382, MPV 10.4, Neut % (Auto) 67.7, Lymph % (Auto) 23.2, Arenac % (Auto) 7.7, Eos % (Auto) 0.8, Baso % (Auto) 0.3, Neut # (Auto) 7.1, Lymph # (Auto) 2.5, Arenac # (Auto) 0.8, Eos # (Auto) 0.1, Baso # (Auto) 0.0, VBG pH 7.38, VBG pCO2 40.7, VBG pO2 56.8 H, VBG HCO3 23.3, VBG Total CO2 24.6, VBG O2 Saturation 88.0 H, VBG Base Excess -1.9, VBG Lactic Acid 1.3, Sodium 138, Potassium 3.8, Chloride 97 L, Carbon Dioxide 29, Anion Gap 15.8 H, BUN 12, Creatinine 0.90, Estimated Creat Clear 124, Estimated GFR 74, Est GFR ( Amer) 90, Glucose 95, Calcium 10.0, Total Bilirubin 0.5, AST 48 H, ALT 37, Alkaline Phosphatase 73, Troponin I < 0.01, Total Protein 8.7 H, Albumin 5.0, Globulin 3.7 H, Albumin/Globulin Ratio 1.4, TSH 1.61, Free T4 1.10, Serum HCG, Qual Negative, HCV Ab MAICOL w/Rflx PCR Qn Negative, HIV Ag/Ab Combo Qual Negative 09/10/24 02:32: Troponin I < 0.01 09/10/24 05:48: WBC 8.2, RBC 4.10 L, Hgb 9.9 L D, Hct 32.4 L, MCV 79.0 L, MCH 24.6 L, MCHC 31.2 L, RDW 22.1 H, Plt Count 326, MPV 10.7 H, Neut % (Auto) 64.4, Lymph % (Auto) 27.6, Arenac % (Auto) 6.9, Eos % (Auto) 0.5, Baso % (Auto) 0.4, Neut # (Auto) 5.3, Lymph # (Auto) 2.3, Arenac # (Auto) 0.6, Eos # (Auto) 0.0, Baso # (Auto) 0.0, Sodium 137, Potassium 4.0, Chloride 99, Carbon Dioxide 27, Anion Gap 15.0, BUN 12, Creatinine 0.80, Estimated Creat Clear 140, Estimated GFR 85, Est GFR ( Amer) 103, Glucose 90, Calcium 9.4, Troponin I < 0.01 Temp Pulse Resp BP Pulse Ox O2 Del Method 97.8 F 66 15 101/51 L 99 Room Air 09/10/24 08:00 09/10/24 08:00 09/10/24 08:00 09/10/24 08:00 09/10/24 08:00 09/10/24 08:00 Laboratory Results - last 24 hr 09/09/24 23:30: WBC 10.5, RBC 4.64, Hgb 11.5 L, Hct 36.5 L, MCV 78.7 L, MCH 24.8 L, MCHC 31.5 L, RDW 22.2 H, Plt Count 382, MPV 10.4, Neut % (Auto) 67.7, Lymph % (Auto) 23.2, Arenac % (Auto) 7.7, Eos % (Auto) 0.8, Baso % (Auto) 0.3, Neut # (Auto) 7.1, Lymph # (Auto) 2.5, Arenac # (Auto) 0.8, Eos # (Auto) 0.1, Baso # (Auto) 0.0, VBG pH 7.38, VBG pCO2 40.7, VBG pO2 56.8 H, VBG HCO3 23.3, VBG Total CO2 24.6, VBG O2 Saturation 88.0 H, VBG Base Excess -1.9, VBG Lactic Acid 1.3, Sodium 138, Potassium 3.8, Chloride 97 L, Carbon Dioxide 29, Anion Gap 15.8 H, BUN 12, Creatinine 0.90, Estimated Creat Clear 124, Estimated GFR 74, Est GFR ( Amer) 90, Glucose 95, Calcium 10.0, Total Bilirubin 0.5, AST 48 H, ALT 37, Alkaline Phosphatase 73, Troponin I < 0.01, Total Protein 8.7 H, Albumin 5.0, Globulin 3.7 H, Albumin/Globulin Ratio 1.4, TSH 1.61, Free T4 1.10, Serum HCG, Qual Negative, HCV Ab MAICOL w/Rflx PCR Qn Negative, HIV Ag/Ab Combo Qual Negative 09/10/24 02:32: Troponin I < 0.01 09/10/24 05:48: WBC 8.2, RBC 4.10 L, Hgb 9.9 L D, Hct 32.4 L, MCV 79.0 L, MCH 24.6 L, MCHC 31.2 L, RDW 22.1 H, Plt Count 326, MPV 10.7 H, Neut % (Auto) 64.4, Lymph % (Auto) 27.6, Arenac % (Auto) 6.9, Eos % (Auto) 0.5, Baso % (Auto) 0.4, Neut # (Auto) 5.3, Lymph # (Auto) 2.3, Arenac # (Auto) 0.6, Eos # (Auto) 0.0, Baso # (Auto) 0.0, Sodium 137, Potassium 4.0, Chloride 99, Carbon Dioxide 27, Anion Gap 15.0, BUN 12, Creatinine 0.80, Estimated Creat Clear 140, Estimated GFR 85, Est GFR ( Amer) 103, Glucose 90, Calcium 9.4, Troponin I < 0.01 I & O for Last 24 hours: Intake & Output 09/07/24 09/08/24 09/09/24 09/10/24 23:59 23:59 23:59 23:59 Output Total 0 / 0 Balance 0 / 0 Weight 85.275 kg 85.275 kg Intake & Output 09/07/24 09/08/24 09/09/24 09/10/24 23:59 23:59 23:59 23:59 Output Total 0 / 0 Balance 0 / 0 Weight 188 lb 187 lb 15.987 oz Constitutional Constitutional: no acute distress and cooperative *Routine HEENT Exam Eye: Present PERRL *Routine Respiratory Exam Respiratory: Present CTA bilaterally; Absent accessory muscle use, wheezes or crackles *Routine Cardiovascular Exam Cardiovascular: Present RRR, Normal S1 and Normal S2; Absent murmur, gallop or rubs *Routine Abdominal Exam Abdominal: Present soft; Absent tenderness *Routine Extremities Exam Extremities: Present pulses intact; Absent cyanosis or edema *Routine Skin Exam Skin: Present intact; Absent erythema or wounds *Routine Neurological Exam Neurological: Present alert and oriented X3 Routine Psychiatric Exam Psychiatric: Present cooperative Results Data Completed and Pending Labs on day of discharge: Labs from last 24 hours 09/10/24 09/10/24 09/09/24 05:48 02:32 23:30 WBC 8.2 10.5 RBC 4.10 L 4.64 Hgb 9.9 L D 11.5 L Hct 32.4 L 36.5 L MCV 79.0 L 78.7 L MCH 24.6 L 24.8 L MCHC 31.2 L 31.5 L RDW 22.1 H 22.2 H Plt Count 326 382 MPV 10.7 H 10.4 Neut % (Auto) 64.4 67.7 Lymph % (Auto) 27.6 23.2 Arenac % (Auto) 6.9 7.7 Eos % (Auto) 0.5 0.8 Baso % (Auto) 0.4 0.3 Neut # (Auto) 5.3 7.1 Lymph # (Auto) 2.3 2.5 Arenac # (Auto) 0.6 0.8 Eos # (Auto) 0.0 0.1 Baso # (Auto) 0.0 0.0 VBG pH 7.38 VBG pCO2 40.7 VBG pO2 56.8 H VBG HCO3 23.3 VBG Total CO2 24.6 VBG O2 Saturation 88.0 H VBG Base Excess -1.9 VBG Lactic Acid 1.3 Sodium 137 138 Potassium 4.0 3.8 Chloride 99 97 L Carbon Dioxide 27 29 Anion Gap 15.0 15.8 H BUN 12 12 Creatinine 0.80 0.90 Estimated Creat Clear 140 124 Estimated GFR 85 74 Est GFR ( Amer) 103 90 Glucose 90 95 Calcium 9.4 10.0 Total Bilirubin 0.5 AST 48 H ALT 37 Alkaline Phosphatase 73 Troponin I < 0.01 < 0.01 < 0.01 Total Protein 8.7 H Albumin 5.0 Globulin 3.7 H Albumin/Globulin Ratio 1.4 TSH 1.61 Free T4 1.10 Serum HCG, Qual Negative HCV Ab MAICOL w/Rflx PCR Qn Negative HIV Ag/Ab Combo Qual Negative DS: Diagnosis Discharge Diagnosis (1) Chest pain: Status: Acute Code(s): R07.9 - Chest pain, unspecified (2) Panic attack: Status: Acute Code(s): F41.0 - Panic disorder [episodic paroxysmal anxiety] (3) Bipolar II disorder: Status: Acute Code(s): F31.81 - Bipolar II disorder (4) Anxiety: Status: Acute Code(s): F41.9 - Anxiety disorder, unspecified (5) Iron deficiency anemia: Status: Acute Code(s): D50.9 - Iron deficiency anemia, unspecified Meds Home Medications and Allergies Home Medications ?Medication ?Instructions ?Recorded ?Confirmed ?Type buspirone 5 mg tablet 5 mg PO BID #60 tabs 09/10/24 Rx clonidine HCl 0.1 mg tablet 0.1 mg PO HS PRN Insomnia 09/10/24 09/10/24 History ferrous sulfate 325 mg (65 mg 325 mg PO DAILY 09/10/24 09/10/24 History iron) tablet (FeroSul) fluoxetine 20 mg capsule 40 mg PO DAILY 09/10/24 09/10/24 History ziprasidone HCl 80 mg capsule 80 mg PO BID 09/10/24 09/10/24 History New Prescriptions to Start Prescriptions: Arjun Lathamurtney Allergies Allergy/AdvReac Type Severity Reaction Status Date / Time Penicillins Allergy Mild Verified 03/19/22 09:17 Discharge Plan Disposition Patient Disposition: Home, Self-Care Condition: Good Follow up Plan Prescriptions/Medication Reconciliation: New buspirone 5 mg tablet 5 mg PO BID Qty: 60 0RF Continued clonidine HCl 0.1 mg tablet 0.1 mg PO HS PRN (Reason: Insomnia) Patient Comments: TAKE 1 TO 2 TABLETS BY MOUTH AT BEDTIME NEEDED FOR INSOMNIA ziprasidone HCl 80 mg capsule 80 mg PO BID fluoxetine 20 mg capsule 40 mg PO DAILY ferrous sulfate [FeroSul] 325 mg (65 mg iron) tablet 325 mg PO DAILY Patient Comments: TAKE 1 TABLET BY MOUTH EVERY DAY Problem Reconciliation Problems Reviewed?: Yes Patient Discharge Instructions ACTIVITY: Continue current activity DIET: continue same diet Patient Instructions: Bipolar Disorder, DI for Anxiety -- Adult, DI for Panic Disorder, DI for Chest Pain Print Language: Hungarian Providers Primary Care Provider: Provider,Referral Admit Provider: Eddie Amador Attending Provider: Eddie Amador
--- NOTE | 2024-09-11 11:17 | SW/DCPLANNER ---
Spoke with patient on the phone. Patient stated that she is doing good. Patient stated that she does not have any upcoming appointments. Patient stated that she plans on getting her new medicine today. Patient stated that she has no concerns or questions at this time. Camila Leong
== END 2024-09-10 13:04 | disposition home or self-care (01) ==
LOC: ER 09-10 02:32 → 2ND 09-10 05:30
PROVIDERS: Nurse Practitioner Family; Admitting Provider Student in an Organized Health Care Education/Training Program; Emergency Provider Emergency Medicine; Visit Provider Student in an Organized Health Care Education/Training Program
DX: R07.9 Chest pain, unspecified (principal); F41.9 Anxiety disorder, unspecified; F41.0 Panic disorder [episodic paroxysmal anxiety]; F31.81 Bipolar II disorder; D50.9 Iron deficiency anemia, unspecified; G47.00 Insomnia, unspecified; Z79.899 Other long term (current) drug therapy; Z88.0 Allergy status to penicillin
CPT/HCPCS: 36415; 71045; 71275; 80048; 80053; 82803; 84439; 84443; 84484; 84703; 85025; 86803; 87389; 93005; G0378; J1650; J2270; J2405; Q9967

== ENCOUNTER 2024-11-30 19:09 | Emergency (ER) | payer SELFPAY ==
--- OUTSIDE RECORDS SUMMARY | 2024-11-05 15:30 | XMS_ITS | Encounter Summary ---
Author Organization [facility] Address [address] [place] [address] Care Team Providers Care Mandarin Teacher Name Role Phone Juliocesar Diaz Primary Care Provider Reason for Visit * Reason Comments std testing Encounter Details Date Type Department Care Team (Late st Contact Info) Description 11/05/2024 3:30 PM EDT Office Visit [facility] OBGYN [address] [place] [address] Michelle Sullivan M, MANAGER MEDICARE MARKETING [address] [facility] [address] [place] [address] Screen for STD (sexually transmitted disease) (Primary Dx); IUD check up Social History Tobacco Use Types Packs/Day Years Used Date Smoking Tobacco: Never Smokeless Tobacco: Never Tobacco Cessation:Counseling Given: Not Answered Alcohol Use Standard Drinks/Week Comments Yes 0 (1 standard drink = 0.6 oz pur e alcohol) wine occasionally [place] Depression Scale Answer Date Recorded [place] Depression Scale Total 0 12/19/2020 The thought [...] this encounter Progress Notes * Michelle Sullivan, MANAGER MEDICARE MARKETING - 11/05/2024 3:30 PM EDT Images from [...] cycle since placement. Denies pelvic pain. 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 Michelle Laguna, MANAGER MEDICARE MARKETING Objective BP 112/78 Resp 18 Ht 165.1 cm (65 ) Wt 85.3 kg (188 lb) LMP (LMP Unknown) BMI 31.28 kg/m?? Physical Exam Vitals and nursing note reviewed. Exam conducted with a sales and service change leader present. Constitutional: Appearance: Normal appearance. Pulmonary: Effort: [...] tenderness. Comments: IUD strings visible and appropriate. 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 [...] Description 12/30/2024 1:00 PM EDT Office Visit [facility] ENDOCRINOLOGY [address] [phone] Gaby Villarreal PA [address] [address] documented as of this encounter Procedures Procedure [...] - 11/06/2024 8:09 PM EDT Performed at: [address] - [facility], [place], [place] [id number] Tea Leaf Reader: Tracy Gilman MD, Phone: [phone] Patient Fasting: N Michelle Sullivan APRN MICROBIOLOGY - GENERAL OR DERABLES Final Result [facility] (AMBULATORY) [address] [place] [address], [place] [phone] [facility] [address] [place] [address], [place] [phone] documented in this encounter Visit Diagnoses Diagnosis Screen for STD (sexually transmitted disease)- Primary Screening examination for venereal disease IUD check up documented in this encounter Care Teams Mandarin Teacher Relationship Specialty Start Date End Date Juliocesar Diaz DO [address] [address] PCP - General Internal Medicine 11/26/22 documented as of this encounter
[2024-11-30] VITALS (9 sets, daily range): BP systolic 115–141; BP diastolic 78–87; PULSE 71–100; RESP 17; TEMP 36.8–37.1; O2SAT 95–100; BMI 23.6
--- OUTSIDE RECORDS SUMMARY | 2024-11-30 19:22 | XMS_ITS | Encounter Summary ---
Author Organization [facility] Address [address] [place] [address] Care Team Providers Care Machined Parts Metal Sprayer Name Role Phone Juliocesar Diaz Primary Care Provider Encounter Details Date Type Department Care Team (Late st Contact Info) Description 11/09/2024 Results Follow-Up [facility] OBGYN [address] [place] [address] Michelle Sullivan, SOLAR SALES REPRESENTATIVE 1700 [facility] [address] [place] [address] Social History Tobacco Use Types Packs/Day Years Used Date Smoking Tobacco: Never Smokeless Tobacco: Never Alcohol Use Standard Drinks/Week Comments Yes 0 (1 standard drink = 0.6 oz pur e alcohol) wine occasionally [place] Depression Scale Answer Date Recorded [place] Depression Scale Total 0 12/19/2020 The thought [...] on file documented as of this encounter Plan of Treatment Upcoming Encounters Date Type Department Care Team (Late st Contact Info) Description 12/30/2024 1:00 PM EDT Office Visit [facility] ENDOCRINOLOGY [address] [facility] 100 [place] [address] Gaby Villarreal PA 3084 [facility] 100 [place], [place] [id number] documented as of this encounter Visit Diagnoses Not on filedocumented in this encounter Care Teams Machined Parts Metal Sprayer Relationship Specialty Start Date End Date Juliocesar Diaz DO 1138 [facility] [address] [place] [address] PCP - General Internal Medicine 11/26/22 documented as of this encounter
--- OUTSIDE RECORDS SUMMARY | 2024-11-30 19:22 | XMS_ITS | Encounter Summary ---
Author Organization [facility] Address [address] [place] [address] Care Team Providers Care Product Design Specialist Name Role Phone Juliocesar Diaz Primary Care Provider Encounter Details Date Type Department Care Team (Latest Contact Info) Description 11/05/2024 Travel Social History Tobacco Use Types Packs/Day Years Used Date Smoking Tobacco: Never Smokeless Tobacco: Never Alcohol Use Standard Drinks/Week Comments Yes 0 (1 standard drink = 0.6 oz pur e alcohol) wine occasionally [place] Depression Scale Answer Date Recorded [place] Depression Scale Total 0 12/19/2020 The thought of harming myself has occurred to me . Never 12/19/2020 Abuse Screen Answer Date Recorded Feels Unsafe at Home or Work/School no 11/06/2022 Feels Threatened by Someone no 0 07/2022 Does Anyone Try to Keep You [...] Description 12/30/2024 1:00 PM EDT Office Visit [facility] ENDOCRINOLOGY 3084 [facility] [address] [place] [address] Gaby Villarreal, SARA 3084 [facility] 100 [place] [address] documented as of this encounter Visit Diagnoses Not on filedocumented in this encounter Care Teams Product Design Specialist Relationship Specialty Start Date End Date Juliocesar Diaz DO 1138 [facility] 290 [place] [address] PCP - General Internal Medicine 11/26/22 documented as of this encounter
--- OUTSIDE RECORDS SUMMARY | 2024-11-30 19:22 | XMS_ITS | Encounter Summary ---
Author Organization [facility] Address [address] [place] [address] Care Team Providers Care Sonogram Technician Name Role Phone Juliocesar Diaz Primary Care Provider Encounter Details Date Type Department Care Team (Late st Contact Info) Description 09/21/2024 Results Follow-Up [facility] OBGYN [address] [place] [address] Michelle Sullivan, PORT ENGINEER 1700 [facility] [address] [place] [address] Social History Tobacco Use Types Packs/Day Years Used Date Smoking Tobacco: Never Smokeless Tobacco: Never Alcohol Use Standard Drinks/Week Comments Yes 0 (1 standard drink = 0.6 oz pur e alcohol) wine occasionally [place] Depression Scale Answer Date Recorded [place] Depression Scale Total 0 12/19/2020 The thought [...] Visit [facility] ENDOCRINOLOGY 3084 [facility] 100 [place] [address] Gaby Villarreal PA 3084 [facility] 100 [place], [place] [phone] documented as of this encounter Visit Diagnoses Not on filedocumented in this encounter Care Teams Sonogram Technician Relationship Specialty Start Date End Date Juliocesar Diaz DO 1138 [facility] 290 [place] [address] PCP - General Internal Medicine 11/26/22 documented as of this encounter
--- OUTSIDE RECORDS SUMMARY | 2024-11-30 19:22 | XMS_ITS | Clinical Summary ---
Author Organization [facility] Address [address] [place] [address] Care Team Providers Care Wire Chief Name Role Phone Juliocesar Diaz Santosh CHAVEZ Primary Care Provider Allergies Active Allergy Reactions Criticality Noted Date Comments Penicillins Hives Medium 11/12/2016 As a baby. Has tolerated Keflex Medications furosemide (LASIX) 20 MG tablet As Needed. 3 Active ferrous sulfate 140 (45 Fe) MG tablet controlled-rel ease tablet Take by mouth Daily With Breakfast. Active FLUoxetine (PROzac) 20 MG capsule 1 capsule. 3 Active cloNIDine (CATAPRES) 0.1 MG tablet 4 Active propranolol (INDERAL) 20 MG tablet Take 1-2 tablets by mouth Every 6 (Six) Hours As Needed. 5 Active metroNIDAZOLE (METROGEL) 0.75 % vaginal gel 1 applicator full per vagina qhs x 5 days and then twice weekly for 4 months 70 g 2 5 Active ARIPiprazole (ABILIFY) 2 MG tablet Take 1 tablet by mouth Daily. 5 Active ziprasidone (GEODON) 40 MG capsule 1 capsule. 3 11/06/19 25 Discontinu ed(*Therap y completed) Active Problems Problem Noted Date Diagnosed Date Recurrent vaginitis 02/13/2024 Overview (02/13/2024): Recurrent BV. Treat with clinda vaginal and then metrogel twice weekly x 4 months. Can use OTC monistat prn yeast as diflucan can interact with one of her psych meds Normal labor 03/09/2019 History of recurrent UTIs Anxiety Resolved Problems Problem Noted Date Diagnosed Date Resolved Date 09/28/2020 11/03/2020 Overview (09/28/2020): EFW- 62% Decreased movements in third trimester 1 11/03/2020 28 weeks gestation of 12/24/2018 03/12/2019 complicated by nep hrolithiasis in third trimester, antepartum 12/22/2018 03/12/2019 uterine contractions , antepartum, third trimester 12/19/2018 03/12/2019 Fibrocystic breast changes, bilateral 05/21/2018 11/03/2020 Irregular menses 11/03/2020 Female infertility 0 Encounters Date Type Department Care Team Description 11/09/2024 Results Follow-Up [facility] [place] [address] Michelle Sullivan APRN 11/05/2024 3:30 PM EDT Office Visit [facility] [place] [place] [address] Michelle Sullivan, HEADEND TECHNICIAN Screen for STD (sexually transmitted disease) (Primary Dx); IUD check up 11/05/2024 Travel 09/21/2024 Results Follow-Up [facility] [place] [address] Michelle Sullivan APRN 09/11/2024 11:00 AM EDT Office Visit [facility] O[facility] [address] [place] [address] Michelle Sullivan, HEADEND TECHNICIAN Women's annual routine gynecological examination (Primary Dx); Encounter for insertion of intrauterine contraceptive device (IUD); Recurrent vaginitis; IUD check up; Dysmenorrhea 09/11/2024 Travel from Last 3 Months Immunizations Immunization Administration Dates Next Due MMR 11/03/2020,03/12/2019 Tdap 08/31/2020 Family History Medical History Relation Name Comments Hypertension Father Ravindra Breast cancer Mother Ovarian cancer Mother Stomach cancer Mother Colon cancer Neg Hx Uterine cancer Neg Hx Relation Name Status Comments Father Ravindra Alive Mother Alive Sister Other Social History Tobacco Use Types Packs/Day Years Used Date Smoking Tobacco: Never Smokeless Tobacco: Never Tobacco Cessation:Counseling Given: Not Answered Alcohol Use Standard Drinks/Week Comments Yes 0 (1 standard drink = 0.6 oz pur e alcohol) wine occasionally [place] Depression Scale Answer Date Recorded [place] Depression Scale Total 0 12/19/2020 The thought [...] on file Sexual Orientation Not on file Last Filed Vital Signs Vital Sign Reading Time Taken Comments Blood Pressure 112/78 11/05/2024 3:28 PM EDT Pulse 80 11/06/2022 9:40 PM EDT Temperature 36.2 C (97.1 F) 11/26/2022 11:47 AM EDT Respiratory Rate 18 11/05/2024 3:28 PM EDT Oxygen Saturation 95% 11/06/2022 9:40 PM EDT Inhaled Oxygen Concentration - - Weight 85.3 kg (188 lb) 11/05/2024 3:28 PM EDT Height 165.1 cm (5' 5 ) 11/05/2024 3:28 PM EDT Body Mass Index 31.28 11/05/2024 3:28 PM EDT Plan of Treatment Upcoming Encounters Date Type Department Care Team (Late st Contact Info) Description 12/30/2024 1:00 PM EDT Office Visit [facility] ENDOCR[facility]OLOG[facility] 3084 [facility] 100 [place] [address] Gaby Villarreal, SARA [address] [id number] Health Maintenance Due Date Last Done Comments ANNUAL PHYSICAL 11/10/2015 INFLUENZA VACCINE 10/02/2024 Annual Gynecologic Pelvic and Breast Exam 09/12/2025 09/11/2024, 03/22/2021, 12/19/2020, Additional history exists PAP SMEAR 09/12/2027 09/11/2024, 08/03, 03/22/2021, Additional history exists TDAP/TD VACCINES (2 - Td or Tdap) 08/31/2030 08/31/2020 HEPATITIS C SCREENING Completed 04/07/2020 CHLAMYDIA SCREENING Discontinued 11/05/2024, 09/11/2024, 04/22/2024, Additional history exists Pneumococcal Vaccine 0-49 Aged Out No longer eligible based on patient's age to complete this topic Procedures Procedure Name Priority Date/Time Associated Diagnosis Comments CHLAMYDIA TRACHOMATIS, NEISSERIA GONORRHOEAE, TRICHOMONAS VAGINALIS, PCR Routine 11/05/2024 4:00 PM EDT Screen for STD (sexually transmitted disease) LIQUID-BASED PAP SMEAR WITH HPV GENOTYPING IF ASCUS, [facility] ([facility]E,[facility]) Routine 09/11/2024 12:11 PM EDT Women's annual routine gynecological examination SCANNED - PAP SMEAR Routine 03/22/2021 OBSTETRIC PANEL Routine 04/07/2020 5:09 PM EST Less than 8 weeks gestation of from Last 3 Months or Most Recently Relevant to Health Maintenance Results * Chlamydia trachomatis, Neisseria gonorrhoeae, Trichomonas vaginalis, PCR - Swab, Cervix (54:00 PM EDT) Chlamydia trachomatis, ANDRZEJ Negative Negative [facility] Gonococcus by ANDRZEJ Negative Negative [facility] Trichomonas vaginosis Negative Negative [facility] Swab Cervix uteri structure / Unknown 11/05/2024 4:00 PM EDT 11/05/2024 Comment:CX Narrative [facility] (AMBULATORY) - 11/06/2024 8:09 PM EDT Performed at: 01 - [address] [place] [id number] Public Defender: Tracy Gilman MD, Phone: [phone] Patient Fasting: N Michelle Sullivan HEADEND TECHNICIAN MICROBIOLOGY - GENERAL OR DERABLES Final Result [facility] ([facility]BULAT[facility]) [address] [place] [address], [facility] [address] [place] [address], * LIQUID-BASED PAP SMEAR WITH HPV GENOTYPING IF ASCUS (MARLENE,COR,MAD) (09/11/2024 12:11 PM EDT) Reference Lab Report [facility] [address] [place] [address] or [phone] Bubba Mcdermott M.D., Product Management Intern PATIENT NAME LABORATORY NO. ANA CHASE. [id number] AGE SEX SSN CLIENT REF # [id number] ([facility]) 29 1995 F [id number] [facility] NEELIMA SAENZ REQUESTING Flory [place] [address] MICHELLE SULLIVAN DATE COLLECTED DATE RECEIVED DATE REPORTED 09/11/2024 09/14/2024 09/19/2024 ThinPrep Pap with Hologic Genius Imaging DIAGNOSIS: Negative for intraepithelial lesion or malignancy Multiple factors can influence accuracy of Pap tests; therefore, screening at regular intervals is necessary for early cancer detection. SPECIMEN ADEQUACY: SATISFACTORY FOR EVALUATION Transformation zone is present. Partially obscuring bacteria is present. SOURCE OF SPECIMEN: CERVICAL/ENDOCERVI MANUELITO SLIDES: 1 CLINICAL HISTORY: Please add BV, IUD Women's annual routine gynecological examination Chlamydia / Gonorrhea CHLAMYDIA TRACHOMATIS: Negative NEISSERIA GONORRHOEAE: Negative The Aptima Combo 2 assay is a target amplification nucleic acid probe test that utilizes target capture for the in vitro qualitative detection and differentiation of ribosomal RNA from Chlamydia trachomatis and Neisseria gonorrhoeae to aid in the diagnosis of chlamydial and gonococcal disease using the Buhl system. Sendout Ancillary Vaginosis Tests ATOPOBIUM VAGINAE: Negative BVAB2: Negative MEGASPHAERA 1: Positive COMMENT: The above results are intended for medical diagnosis and treatment purposes only. Results from this assay (s) should be interpreted in conjunction with other laboratory and clinical data. The test is not intended to differentiate carriers of the organism from those with active infections. Therapeutic success or failure cannot be assessed using this test because DNA may persist following antimicrobial therapy. Nucleic acid base changes or mutations can result in false negative reactions. This test was developed and its performance characteristics determined by [facility] It has not been cleared or approved by the U.S. Food and Drug Administration. The FDA has determined that such clearance or approval is not necessary. [facility] ([facility]) is located in [place], [place] CANVAS WORKER APPRENTICE: DARIEN VAZQUEZ (ASCP) CPT CODES: 81681, 14974, 71672, [id number] 09/19/2024 5:59 PM EDT [facility] ThinPrep Vial Collection / Unknown 09/11/2024 12:11 PM EDT 09/11/2024 12:11 PM EDT Michelle Sullivan APRN PATHOLOGY/CYTOLOGY ORDERA BLES Final Result Performing Organization Address [facility]/ZIP Co de Phone Number [facility]
[address] [place] [address], [place] [phone] * PAP SMEAR SCANNED (03/22/2021) Lucila Rosales APRN CHART REVIEW TABS Final Re sult Performing Organization Address [facility]/ZIP Co de Phone Number [facility]
[address] [place] [address], [place] [phone] * (ABNORMAL) Obstetric Panel (04/07/2020 5:09 PM EST) Hepatitis B Surface Ag Negative Negative [facility] Hep C Virus Ab <0.1 0.0 - 0.9 s/co ratio [facility] Comment: Negative: < 0.8 Indeterminate: 0.8 - 0.9 Positive: > 0.9 The CDC recommends that a positive HCV antibody result be followed up with a HCV Nucleic Acid Amplification test (530735). RPR Non Reactive Non Reactive [facility] Rubella Antibodies, IgG <0.90(L) Immune >0.99 index [facility] Comment: Non-immune <0.90 Equivocal 0.90 - 0.99 Immune >0.99 ABO Type O [facility] Rh Factor Positive [facility] Comment: Please note: Prior records for this patient's ABO / Rh type are not available for additional verification. Antibody Screen Negative Negative [facility] WBC 11.4(H) 3.4 - 10.8 x10E3/uL [facility] RBC 4.34 3.77 - 5.28 x10E6/uL [facility] Hemoglobin 12.3 11.1 - 15.9 g/dL [facility] Hematocrit 38.0 34.0 - 46.6 % [facility] MCV 88 79 - 97 fL [facility] MCH 28.3 26.6 - 33.0 pg [facility] MCHC 32.4 31.5 - 35.7 g/dL [facility] RDW 13.1 11.7 - 15.4 % [facility] Platelets 357 150 - 450 x10E3/uL [facility] Neutrophil Rel % 67 Not Estab. % [facility] Lymphocyte Rel % 26 Not Estab. % [facility] Monocyte Rel % 7 Not Estab. % [facility] Eosinophil Rel % 0 Not Estab. % [facility] Basophil Rel % 0 Not Estab. % [facility] Neutrophils Absolute 7.6(H) 1.4 - 7.0 x10E3/uL [facility] Lymphocytes Absolute 3.0 0.7 - 3.1 x10E3/uL [facility] Monocytes Absolute 0.8 0.1 - 0.9 x10E3/uL [facility] Eosinophils Absolute 0.0 0.0 - 0.4 x10E3/uL [facility] Basophils Absolute 0.0 0.0 - 0.2 x10E3/uL [facility] Immature Granulocyte Rel % 0 Not Estab. % [facility] Immature Grans Absolute 0.0 0.0 - 0.1 x10E3/uL [facility] Blood 04/07/2020 5:09 PM EST 04/07/2020 Narrative [facility] ([facility]) - 04/20/2020 8:11 AM EST Performed at: 01 - [facility] [address] [place] [id number] Public Defender: Juarez Gasca PhD, Phone: [phone] Patient Fasting: N Holly Sher MD LAB BLOOD ORDERABLES Final Resu lt [facility] ([facility]) [address] [place] [address], [facility] [address] [place] [address], from Last 3 Months or Most Recently Relevant to Health Maintenance Advance Directives * CPR (Attempt to Resuscitate) (Latest Code Status on File) Date Activated Date Inactivated Comments 11/02/2020 3:16 AM 11/03/2020 6:39 PM Question Answer Comments Code Status (Patient has no pulse and is not breathing): CPR (Attempt to Resuscitate) Medical Interventions (Patie nt has pulse or is breathing): Full * CPR (Attempt to Resuscitate) Date Activated Date Inactivated Comments 03/10/2019 8:53 AM 03/12/2019 2:12 PM Question Answer Comments Code Status (Patient has no pulse and is not breathing): CPR (Attempt to Resuscitate) Medical Interventions (Patie nt has pulse or is breathing): Full Level Of Support Discussed With: Patient * CPR (Attempt to Resuscitate) Date Activated Date Inactivated Comments 03/09/2019 7:25 PM 03/10/2019 8:53 AM Question Answer Comments Code Status (Patient has no pulse and is not breathing): CPR (Attempt to Resuscitate) Medical Interventions (Patie nt has pulse or is breathing): Full * CPR (Attempt to Resuscitate) Date Activated Date Inactivated Comments 12/22/2018 4:47 PM 12/23/2018 9:08 PM Question Answer Comments Code Status (Patient has no pulse and is not breathing): CPR (Attempt to Resuscitate) Medical Interventions (Patie nt has pulse or is breathing): Full Care Teams Wire Chief Relationship Specialty Start Date End Date Juliocesar Diaz DO 1138 [facility] [address] [place] [address] PCP - General Internal Medicine 11/26/22
--- OUTSIDE RECORDS SUMMARY | 2024-11-30 19:22 | XMS_ITS | Data Portability ---
Author Organization [place] - [facility] - [place] & ANNIE Lee ADMIN Address [address] [place] [id number] Assessment Encounter Date Assessment Date Assessment LastModified by Organization Details LastModified Time 03/19/2023 03/19/2023 Diagnosis Rash allergic reaction Patient was instructed to take/apply medicine as prescribed Patient understands risk and benefits of steriods and the patient opts to take the medicine for symptoms relief cool compresses Benadryl as needed for itching Follow up with any worsening symptoms [email or web address] Not available 03/19/2023 13:23:08 07/09/2023 07/09/2023 Diagnosis Strep Pharyngitis Patient was instructed to take and complete antibiotic as prescribed Tylenol/Motrin as needed change toothbrush in 2-3 days gargle warms salt water patient/parent understands instructions follow up with worsening symptoms or concerns [email or web address] Not available 07/09/2023 13:24:06 08/01/2023 08/01/2023 Patient [...] or worsening sx develop, seek attention immediately. [email or web address] Not available 08/01/2023 14:09:47 09/13/2023 09/13/2023 Will cover for GC/Chlamydia as per recommendations while pending tests. Will also cover for UTI. Advised retesting in about 6 weeks if test is positive. [email or web address] Not available 09/13/2023 17:43:59 Plan of Treatment Reminders Order Date Submit Date Provider Last Modified By Organization Details Last Modified Time Details Appointments None recorded. Lab infectious disease panel 2023 024 [facility], [address], [place], [address], 4 10:44:12 urinalysis , dipstick 2023 024 [facility], [address], [place], [address], Ph [phone] 4 17:21:26 culture, urine 2023 024 [facility], [address], [place], [address], 4 06:18:10 urinalysis , dipstick 2023 024 [email or web address] [id number] [facility], [address], [place], [address], Ph [phone] 4 14:09:40 rapid strep group A, throat 2023 024 [facility], [address], [place], [address], Ph [phone] 4 13:10:18 rapid SARS CoV 2 Ag, QL [place], respirator y specimen 2023 024 [facility], [address], [place], [address], Ph [phone] 4 13:10:35 rapid flu (A+B) 2023 024 [facility], [address], [place], [address], Ph [phone] 4 13:10:58 rapid SARS CoV 2 Ag, QL IA, respirator y specimen 2023 024 [email or web address] Not available 13:43:54 Referral None recorded. Procedures None recorded. Surgeries None recorded. Imaging None recorded. Medication Orders ceftriaxon e 500 mg solution for injection 2023 024 [email or web address] Not available 4 07:13:00 doxycyclin e monohydrat e 100 mg tablet 2023 024 [id number], [address], [id number], 4 17:38:41 Bactrim DS 800 mg-160 mg tablet 2023 024 [facility][id number], [address], [id number], 4 17:38:44 Pyridium 200 mg tablet 2023 024 [facility][id number], [address], [id number], 4 17:38:42 Macrobid 100 mg capsule 2023 024 [facility]2332, [address] [place] [address], [address], 4 14:10:45 Pyridium 200 mg tablet 2023 024 [facility], [address] [place] [address], [address], 4 14:10:45 azithromyc in 500 mg tablet 2023 024 8 [facility] #2332, [address] [place] [address], [address], 4 13:24:07 ondansetro n 4 mg disintegra ting tablet 2023 024 [facility]2332, [address] [place], [address], 4 13:23:59 prednisone 10 mg tablets in a dose pack 2023 024 [facility] [address] [place], [address], 4 13:22:47 triamcinol one acetonide 0.1 % topical cream 2023 024 [facility] [address] [place], [address], 4 13:22:47 Celestone Soluspan 6 mg/mL suspension for injection 2023 024 [email or web address] [facility] [address] [place], [address], 4 13:30:04 Patient TargetsNo targets recorded. Patient InstructionsNo instructions recorded. Reason for Referral None Reported. Results Created Date Observation Date Name Description Value Unit Range Abnormal Flag Note LastModifiedBy Organization Detail LastModifiedTime 04/08/19 24 04/08/2023 rapid SARS CoV 2 Ag, QL IA, respi rator y speci men rapid SARS CoV 2 Ag, QL [place], respiratory specimen negati ve Not Available [facility] [address], [place], [address], 04/08/2023 13:06:11 07/09/19 24 07/09/2023 rapid flu (A+B) Flu A negati ve Not Available [facility] [address] [facility] [address], [place], [address], Ph [phone] 07/09/2023 12:52:47 07/09/19 24 07/09/2023 rapid flu (A+B) Flu B negati ve Not Available [facility] [address] [facility] [address], [place], [address], Ph [phone] 07/09/2023 12:52:47 07/09/19 24 07/09/2023 rapid SARS CoV 2 Ag, QL IA, respi rator y speci men rapid SARS CoV 2 Ag, QL IA, respiratory specimen negati ve Not Available [facility] [address] [facility] [address], [place], [address], Ph [phone] 07/09/2023 12:52:38 07/09/19 24 07/09/2023 rapid strep group A, throa t Strep positi ve Not Available [facility] [address] [facility] [address], [place], [address], Ph [phone] 07/09/2023 12:52:22 08/01/19 24 08/03/2023 URINE CULTU RE, ROUTI NE urine culture, routine FINAL REPORT Not Available [facility] ([facility]) [address] [place], [address], 08/03/2023 06:18:10 08/01/19 24 08/03/2023 URINE CULTU RE, ROUTI NE result 1 NO GROWTH Not Available [facility] ([facility]) [address] [facility], [place], [address], 08/03/2023 06:18:10 08/01/19 24 08/01/2023 urina lysis , dipst ick Leukocytes (reference range) modera te Not Available [facility] [address] [facility] [address], [place], [address], Ph [phone] 08/01/2023 13:54:29 08/01/19 24 08/01/2023 urina lysis , dipst ick Nitrite (reference range:) negati ve Not Available [facility] [address] [facility] [address], [place], [address], Ph [phone] 08/01/2023 13:54:29 08/01/19 24 08/01/2023 urina lysis , dipst ick Urobilinogen (reference range) 4 Not Available [facility] [address] [facility] [address], [place], [address], Ph [phone] 08/01/2023 13:54:29 08/01/19 24 08/01/2023 urina lysis , dipst ick Protein (reference range) negati ve Not Available [facility] [address] [facility] [address], [place], [address], Ph [phone] 08/01/2023 13:54:29 08/01/19 24 08/01/2023 urina lysis , dipst ick pH (reference range 5-8.5) 6.0 Not Available [facility] [address] [facility] [address], [place], [address], Ph [phone] 08/01/2023 13:54:29 08/01/19 24 08/01/2023 urina lysis , dipst ick Blood (reference range:) negati ve Not Available [facility] [address] [facility] [address], [place], [address], Ph [phone] 08/01/2023 13:54:29 08/01/19 24 08/01/2023 urina lysis , dipst ick Specific Lodge (reference range) 1.025 Not Available [facility] [address] [facility] [address], [place], [address], Ph [phone] 08/01/2023 13:54:29 08/01/19 24 08/01/2023 urina lysis , dipst ick Ketone (reference range) negati ve Not Available [facility] [address] [facility] [address], [place], [address], Ph [phone] 08/01/2023 13:54:29 08/01/19 24 08/01/2023 urina lysis , dipst ick Bilirubin (reference range) negati ve Not Available [facility] [address] [facility] [address], [place], [address], Ph [phone] 08/01/2023 13:54:29 08/01/19 24 08/01/2023 urina lysis , dipst ick Glucose (reference range) negati ve Not Available [facility] [address] [facility] [address], [place], [address], Ph [phone] 08/01/2023 13:54:29 08/01/19 24 08/01/2023 urina lysis , dipst ick Color (reference range: yellow-brown ) Yellow Not Available [facility] [address] [facility] [address], [place], [address], Ph [phone] 08/01/2023 13:54:29 09/13/19 24 09/16/2023 URINA RY TRACT INFEC TION + HIGH RISK SEXUA L BEHAV IOR tet B, tet M 20.266 ppm 23.000 - 27.778 abnormal Detec eevlyn Not Available [facility] [address], [place], [address], 09/16/2023 10:44:12 09/13/19 24 09/16/2023 URINA RY TRACT INFEC TION + HIGH RISK SEXUA L BEHAV IOR trichomonas vaginalis 0.000 ppm 23.000 - 32.119 normal Not Detec evelyn Not Available [facility] [address], [place], [address], 09/16/2023 10:44:12 09/13/19 24 09/16/2023 URINA RY TRACT INFEC TION + HIGH RISK SEXUA L BEHAV IOR streptococcu s pyogenes (group A strep) 0.000 ppm 19.961 - 24.689 normal Not Detec evelyn Not Available [facility] [address], [place], [address], 09/16/2023 10:44:12 09/13/19 24 09/16/2023 URINA RY TRACT INFEC TION + HIGH RISK SEXUA L BEHAV IOR streptococcu s agalactiae (group B strep) 0.000 ppm 26.000 - 32.222 normal Not Detec evelyn Not Available [facility] [address], [place], [address], 09/16/2023 10:44:12 09/13/19 24 09/16/2023 URINA RY TRACT INFEC TION + HIGH RISK SEXUA L BEHAV IOR staphylococc us aureus 0.000 ppm 26.000 - 30.902 normal Not Detec evelyn Not Available [facility] [address], [place], [address], 09/16/2023 10:44:12 09/13/19 24 09/16/2023 URINA RY TRACT INFEC TION + HIGH RISK SEXUA L BEHAV IOR serratia marcescens 0.000 ppm 23.000 - 31.204 normal Not Detec evelyn Not Available [facility] [address], [place], [address], 09/16/2023 10:44:12 09/13/19 24 09/16/2023 URINA RY TRACT INFEC TION + HIGH RISK SEXUA L BEHAV IOR pseudomonas aeruginosa 0.000 ppm 23.000 - 28.500 normal Not Detec evelyn Not Available [facility] [address], [place], [address], 09/16/2023 10:44:12 09/13/19 24 09/16/2023 URINA RY TRACT INFEC TION + HIGH RISK SEXUA L BEHAV IOR proteus mirabilis, vulgaris 0.000 ppm 23.000 - 28.500 normal Not Detec evelyn Not Available [facility] [address], [place], [address], 09/16/2023 10:44:12 09/13/19 24 09/16/2023 URINA RY TRACT INFEC TION + HIGH RISK SEXUA L BEHAV IOR neisseria gonorrhoeae 0.000 ppm 23.000 - 32.117 normal Not Detec evelyn Not Available [facility] [address], [place], [address], 09/16/2023 10:44:12 09/13/19 24 09/16/2023 URINA RY TRACT INFEC TION + HIGH RISK SEXUA L BEHAV IOR klebsiella pneumoniae, oxytoca 0.000 ppm 23.000 - 30.500 normal Not Detec evelyn Not Available [facility] [address], [place], [address], 09/16/2023 10:44:12 09/13/19 24 09/16/2023 URINA RY TRACT INFEC TION + HIGH RISK SEXUA L BEHAV IOR escherichia coli 0.000 ppm 23.000 - 28.500 normal Not Detec evelyn Not Available [facility] [address], [place], [address], 09/16/2023 10:44:12 09/13/19 24 09/16/2023 URINA RY TRACT INFEC TION + HIGH RISK SEXUA L BEHAV IOR enterococcus faecalis, faecium 0.000 ppm 26.000 - 31.575 normal Not Detec evelyn Not Available [facility] [address], [place], [address], 09/16/2023 10:44:12 09/13/19 24 09/16/2023 URINA RY TRACT INFEC TION + HIGH RISK SEXUA L BEHAV IOR enterobacter aerogenes, cloacae 0.000 ppm 23.000 - 31.535 normal Not Detec evelyn Not Available [facility] [address], [place], [address], 09/16/2023 10:44:12 09/13/19 24 09/16/2023 URINA RY TRACT INFEC TION + HIGH RISK SEXUA L BEHAV IOR citrobacter freundii 0.000 ppm 23.000 - 31.881 normal Not Detec evelyn Not Available [facility] [address], [place], [address], 09/16/2023 10:44:12 09/13/19 24 09/16/2023 URINA RY TRACT INFEC TION + HIGH RISK SEXUA L BEHAV IOR chlamydia trachomatis 0.000 ppm 23.000 - 31.467 normal Not Detec evelyn Not Available [facility] [address], [place], [address], 09/16/2023 10:44:12 09/13/19 24 09/16/2023 URINA RY TRACT INFEC TION + HIGH RISK SEXUA L BEHAV IOR acinetobacte r baumannii 0.000 ppm 19.961 - 24.689 normal Not Detec evelyn Not Available [facility] [address], [place], [address], 09/16/2023 10:44:12 09/13/19 24 09/16/2023 URINA RY TRACT INFEC TION + HIGH RISK SEXUA L BEHAV IOR morganella morganii 0.000 ppm 19.961 - 24.689 normal Not Detec evelyn Not Available [facility] [address], [place], [address], 09/16/2023 10:44:12 09/13/19 24 09/16/2023 URINA RY TRACT INFEC TION + HIGH RISK SEXUA L BEHAV IOR steve albicans, parapsilosis , tropicalis 0.000 ppm 19.961 - 30.770 normal Not Detec evelyn Not Available [facility] [address], [place], [address], 09/16/2023 10:44:12 09/13/19 24 09/16/2023 URINA RY TRACT INFEC TION + HIGH RISK SEXUA L BEHAV IOR steve glabrata 0.000 ppm 23.000 - 32.138 normal Not Detec evelyn Not Available [facility] [address], [place], [address], 09/16/2023 10:44:12 09/13/19 24 09/16/2023 URINA RY TRACT INFEC TION + HIGH RISK SEXUA L BEHAV IOR steve krusei 0.000 ppm 23.000 - 32.271 normal Not Detec evelyn Not Available [facility] [address], [place], [address], 09/16/2023 10:44:12 09/13/19 24 09/16/2023 URINA RY TRACT INFEC TION + HIGH RISK SEXUA L BEHAV IOR mycoplasma genitalium 0.000 ppm 19.961 - 24.689 normal Not Detec evelyn Not Available [facility] [address], [place], [address], 09/16/2023 10:44:12 09/13/19 24 09/16/2023 URINA RY TRACT INFEC TION + HIGH RISK SEXUA L BEHAV IOR mycoplasma hominis 23.375 ppm 19.961 - 24.689 abnormal Detec evelyn Not Available [facility] [address], [place], [address], 09/16/2023 10:44:12 09/13/19 24 09/16/2023 URINA RY TRACT INFEC TION + HIGH RISK SEXUA L BEHAV IOR staphylococc us saprophyticu s 0.000 ppm 19.961 - 24.689 normal Not Detec evelyn Not Available [facility] [address], [place], [address], 09/16/2023 10:44:12 09/13/19 24 09/16/2023 URINA RY TRACT INFEC TION + HIGH RISK SEXUA L BEHAV IOR staphylococc us epidermidis, haemolyticus , lugdunensis 0.000 ppm 19.961 - 24.689 normal Not Detec evelyn Not Available [facility] [address], [place], [address], 09/16/2023 10:44:12 09/13/19 24 09/16/2023 URINA RY TRACT INFEC TION + HIGH RISK SEXUA L BEHAV IOR ureaplasma urealyticum 0.000 ppm 19.961 - 24.689 normal Not Detec evelyn Not Available [facility] [address], [place], [address], 09/16/2023 10:44:12 09/13/19 24 09/16/2023 URINA RY TRACT INFEC TION + HIGH RISK SEXUA L BEHAV IOR ureaplasma parvum 21.335 ppm 19.961 - 24.689 abnormal Detec evelyn Not Available [facility] [address], [place], [address], 09/16/2023 10:44:12 09/13/19 24 09/13/2023 urina lysis , dipst ick Leukocytes (reference range) large Not Available [facility] [address] [facility] [address], [place], [address], Ph [phone] 09/13/2023 17:05:27 09/13/19 24 09/13/2023 urina lysis , dipst ick Nitrite (reference range:) negati ve Not Available [facility] [address] [facility] [address], [place], [address], Ph [phone] 09/13/2023 17:05:27 09/13/19 24 09/13/2023 urina lysis , dipst ick Urobilinogen (reference range) 0.2 Not Available [facility] [address] [facility] [address], [place], [address], Ph [phone] 09/13/2023 17:05:27 09/13/19 24 09/13/2023 urina lysis , dipst ick Protein (reference range) negati ve Not Available [facility] [address] [facility] [address], [place], [address], Ph [phone] 09/13/2023 17:05:27 09/13/19 24 09/13/2023 urina lysis , dipst ick pH (reference range 5-8.5) 6.0 Not Available [facility] [address] [facility] [address], [place], [address], Ph [phone] 09/13/2023 17:05:27 09/13/19 24 09/13/2023 urina lysis , dipst ick Blood (reference range:) negati ve Not Available [facility] [address] [facility] [address], [place], [address], Ph [phone] 09/13/2023 17:05:27 09/13/19 24 09/13/2023 urina lysis , dipst ick Specific Lodge (reference range) 1.020 Not Available [facility] [address] [facility] [address], [place], [address], Ph [phone] 09/13/2023 17:05:27 09/13/19 24 09/13/2023 urina lysis , dipst ick Ketone (reference range) negati ve Not Available [facility] [address] [facility] [address], [place], [address], Ph [phone] 09/13/2023 17:05:27 09/13/19 24 09/13/2023 urina lysis , dipst ick Bilirubin (reference range) negati ve Not Available [facility] [address] [facility] [address], [place], [address], Ph [phone] 09/13/2023 17:05:27 09/13/19 24 09/13/2023 urina lysis , dipst ick Glucose (reference range) negati ve Not Available [facility] [address] [facility] [address], [place], [address], Ph [phone] 09/13/2023 17:05:27 09/13/19 24 09/13/2023 urina lysis , dipst ick Color (reference range: yellow-brown ) Yellow Not Available [facility] [address] [facility] [address], [place], [address], Ph [phone] 09/13/2023 17:05:27 Result Notes None recorded. Medical Equipment None Reported. Allergies Allergen ID Allergen Name Allergen Category Reaction Reaction Severity Criticality Documentation Date Start Date Code Code System Note Provider Name and Address Organization Details Recorded Time 52873 Product containin g penicilli n (product) medicatio n hives mild low 10/22/2022 28135 8001 SNOMED MAGNUS [place] - [facility] [place] 3 12:45:00 Medications Name Sig Start Date [...] Address Organization Details Last Updated DateTime 4 97568.4 3 g 32.2 kg/m2 165.1 cm 98.3 [degF] 97 % 97 % 65 /min 94 /min 119/81 mm[Hg] Tierney Mack [facility] [place] 4 13:15:13 Date Recorded Body height Body mass index (BMI) Body weight Body temperature Provider Name and Address Organization Details Last Updated DateTime 04/08/2023 165.1 cm 32.6 kg/m2 00952.1 g 98.3 [degF] Sahra Cranener [facility] [place] 04/08/2023 13:06:41 Date Recorded Body height Body mass index (BMI) Body weight Oxygen saturation Oxygen saturation in Arterial blood by Pulse oximetry Body temperature Systolic And Diastolic Provider Name and Address Organization Details Last Updated DateTime 4 165.1 cm 31.5 kg/m2 92870.9 6 g 94 % 94 % 99.7 [degF] 136/75 mm[Hg] Debra edmondson [facility] [place] 4 12:53:48 Date Recorded Body height Body mass index (BMI) Body weight Body temperature Oxygen saturation Oxygen saturation in Arterial blood by Pulse oximetry Heart rate Systolic And Diastolic Provider Name and Address Organization Details Last Updated DateTime 4 165.1 cm 31.7 kg/m2 87911.2 7 g 99.9 [degF] 96 % 96 % 95 /min 117/76 mm[Hg] Zev Reed [facility] [place] 4 13:52:14 Date Recorded Body height Body mass index (BMI) Body weight Body temperature Oxygen saturation Oxygen saturation in Arterial blood by Pulse oximetry Heart rate Heart rate Systolic And Diastolic Provider Name and Address Organization Details Last Updated DateTime 4 165.1 cm 32.6 kg/m2 73435.1 g 98.6 [degF] 99 % 99 % 77 /min 77 /min 126/77 mm[Hg] Yanira Hester [facility] [place] 4 17:01:34 Social History Question Answer Notes LastModified by Organizat ion Details LastModified Time Tobacco Smoking Status Former Smoker Yanira Hester [facility], [facility] [place] 09/13/2023 17:04:01 When Did You Quit Smoking? 6-10yearssin celastcigare tte [email or web address] Information not available 09/13/2023 Sex: Unknown Functional [...] Diagnosis SNOMED-CT Code Diagnosis ICD10 Code Diagnosis IMO Codes Diagnosis Note [id number] Sherita Richards, DNP, MANAGER REPORT-C, DIRECTOR OF QUALITY ZZ [facility] [address] [facility] [address] [place] [address] 10/22/2022 12:39:02 10/22/2022 13:56:29 Avulsion of skin 035990422 T14.8XXA area cleaned with warm soap and water. Dermabond used to glue area together. Dressing applied and patient educated on aftercare. [id number] [facility] [email or web address] [facility],[address] [place] [address] 12/04/2022 14:10:32 12/04/2022 14:37:57 Pain in throat 285336585 R07.0 Streptococ abhijeet sore throat 00143707 J02.0 Nausea 399603248 R11.0 [id number] [facility] [email or web address] [facility] [address] [place] [address] 03/19/2023 12:56:37 03/19/2023 13:32:01 Allergic reaction 852606911 T78.40XA [id number] MD Lina GaviriaZ [facility] [email or web address] [facility] [address] [place] [address] 04/08/2023 12:29:27 04/08/2023 13:18:44 Pain in throat 159654867 R07.0 Acute uppe r respiratory infection 70844489 J06.9 symptomati c treatment [id number] Dorene Cast APRN [facility] [address] [address] 07/09/2023 12:43:55 07/09/2023 13:15:00 Pain in throat 252401901 R07.0 Streptococ abhijeet sore throat 23627302 J02.0 Nausea 959743089 R11.0 [id number] Dorene Cast APRN [facility] [address] [address] 08/01/2023 13:40:28 08/01/2023 14:11:45 Increased frequency of urination 152098126 R35.0 Acute urin jurgen tract infection 977398413 N39.0 [id number] Liu Cast MD [facility] [address] [place] [address] 09/13/2023 16:52:08 09/13/2023 17:57:27 Dysuria 85830722 R30.0 Acute urin jurgen tract infection 030459118 N39.0 Vaginal discharge 727622 006 N89.8 Health Concerns Section Related Observation LastModified by Organization Detai ls LastModified Time None Recorded Concern Status LastModified by Organization Details LastModified Time None Recorded Advance Directives Directive None Recorded Payers Insurance Date Sequence Insurance Name Policy Number Policy Austin Covered Member ID Austin Member ID Guarantor Name 09/24/2023 1 [place] [id number] Ana Wiglesworth [id number] Ana Wiglesworth 08/01/2023 1 [employer] (POS) Ana Wiglesworth [id number] Ana Wiglesworth Notes Date Note Type Note Provider Name and Address Organization Details Recorded Time 03/19/19 24 text/ht ml Rash/Skin LesionReported by PatientHPIFor quality, patient reportsitchy,red, andmultiple. For location, patient reportsface. For severity, patient reportsmild. For onset/timing, patient reportsabrupt onset. For context, patient reportsno new detergents or skin products,no one else with similar rash, andnot scratching(they changed to new at work and rash started after). For alleviating factors, patient reportsnothing gives relief. For associated symptoms, patient reportsno fever,no cold symptoms,no nausea,no vomiting,no diarrhea,no urinary symptoms,no chills,no fatigue, andno change in weight. For treatment history, patient reportsno history of treatment. For duration, (symptoms began 1 week ago). For aggravating factors, (mask make worse).ROS as noted in the HPI Dorene Cast, LG [address], [place], [address], [facility] [place] [facility] - [place] & [place] 03/19/2023 13:57:30 04/08/19 24 text/ht ml ROS as noted in the HPI started with a really bad headache. I had a coworker test positive for COVID. I have had chills but no fevers. I have a bit of thghtness in the ches but no dyspnea. no nausea Sravan San MD [address], [place], [address], [facility] & [place] 04/08/2023 13:18:36 07/09/19 24 text/ht ml Upper Respiratory SymptomsReported by PatientUpper Respiratory SymptomsFor quality, patient reportscongested,dry cough, andnasal discharge(sinus pressure). For associated symptoms, patient reportsfatigue,fever,sore throat,diarrhea,nausea,headache, chills, andmalaisebut reportsno chest pain,no sputum production,no shortness of breath,no wheezing,no cyanosis,no change in number of pillows needed to sleep at night,no sweats,no morning cough,no vomiting,no rash, andno conjunctivitis(fever 100). For location, patient reportshead,chest,throat,nasal, andface. For severity, patient reportsno pain. For onset/timing, patient reportssudden. For context, patient reportsno sick contacts,no foreign travel, andnon-smoker. For duration, (symptoms began 3-4 days ago). For alleviating factors, (not taken anything).LMP 1 month agoROS as noted in the HPI Dorene Cast APRN [address], [place], [address], [facility] & [place] 07/09/2023 13:24:55 08/01/19 24 text/ht ml Lower Urinary Tract Symptoms (LUTS)Reported by PatientHPIFor context, patient reportsexcessive caffeine intakebut reportsno dyspareuniaanddenies new medication treatment. For associated symptoms, patient reportsurgencyandfrequencybut reportsno abdominal pain,no groin pain,no pelvic pain,no flank pain,no low back pain,no chills,no fever,no constipation,no diarrhea,no nausea,no vomiting,no temperaure,good force of stream,no straining,no post void dribbling,no hesitancy,empties well,no incontinence,no perineal pain,no suprapubic pain,no costovertebral angle tenderness,no nocturia,no urine odor,no gross hematuria,no abnormal vaginal discharge, andno vaginal itching or burning. For location, patient reportsbladder. For quality, patient reportspressure. For severity, patient reportsworsening. For onset/timing, patient reportsspontaneous. For duration, patient reportsacute(symptoms began 2-3 days ago). For alleviating factors, (none). For aggravating factors, (none).ROS as noted in the HPI Dorene Cast APRN [address], [place], [address], [facility] & [place] 08/01/2023 14:12:59 09/13/19 24 text/ht ml ROS as noted in the HPI Dysuria for several days but also some vaginal discharge and irritation for past few days. Has been told that her new sexual partner has had Chlamydia but this has not been confirmed to her. States would like to be tested and treated for this. No nausea, vomiting, etc. Liu Cast MD [address], [place], [address], [facility] & [place] 09/13/2023 18:20:52 OBGyn Episode No OBEpisode recorded.
--- OUTSIDE RECORDS SUMMARY | 2024-11-30 19:22 | XMS_ITS | Data Portability ---
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 None Recorded Concern Status LastModified by Organization Details LastModified Time None Recorded Advance Directives Directive None Recorded Payers Insurance Date Sequence Insurance Name Policy Number Policy [place] Covered Member ID [place] Member ID Guarantor Name 11/30/2022 1 [employer] (POS) Jorge Eppersonworth [id number] Ana A Wiglesworth 05/24/2023 1 [employer] (PPO) [id number] Jorge Eppersonworth [id number] Ana A Wiglesworth 05/14/2018 1 *SELF PAY* De sirae A Wiglesworth 08/06/2024 1 [id number] [id number] Ana A Wiglesworth [id number] Ana A Wiglesworth 08/06/2024 SLIDING FEE SCHEDULE - DISCOUNT Anaonelia He 04/10/2024 1 *SELF PAY* De onelia Monterroso Ying 12/17/2023 1 [facility] [id number] Jorge Porterbinh [id number] Ana Monterroso Ying Notes Date Note Type Note Provider Name [...] interosseous neurectomy EMPLOYMENT STATUS: HELEN DIGGS MD [address] [place] [address], [address], [facility] 10/14/2023 14:27:49 10/21/19 24 text/htm l Patient [...] was told she sprained both wrist.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 about a 1-2/10 OTHER RECENT SURGERIES: 09/12/2023 - sprain juliet wristsEMPLOYMENT STATUS: Needs a release for work KRUNAL HOFF PA-C [address] [place], [address], [facility] 11/12/2023 15:15:41 01/29/20 24 text/htm l POST [...] wristsEMPLOYMENT STATUS: working full-time HELEN DIGGS MD [address] [place], [address], [facility] 01/29/2024 15:31:39 08/07/19 25 text/htm l ROS as noted in the HPI 29 year old female patient presents to [...] currently taking any supplementation. TOYIN WALTERS PA-C [address] [place], [address], [facility] 08/11/2024 15:09:14 OBGyn Episode No OBEpisode recorded.
--- OUTSIDE RECORDS SUMMARY | 2024-11-30 19:22 | XMS_ITS | Encounter Summary ---
Author Organization [facility] Address [address] [place] [address] Care Team Providers Care Log Clerk Name Role Phone Juliocesar Diaz Primary Care Provider Reason for Visit * Reason Onset Date Comments Med Refill 05/10/2024 Encounter Details Date Type Department Care Team (Late st Contact Info) Description 05/10/2024 Refill [facility] OBGYN [address] [place] [address] Michelle Sullivan, MEDICAL REVIEW COORDINATOR [address] [place] [address] Social History Tobacco Use Types Packs/Day Years Used Date Smoking Tobacco: Never Smokeless Tobacco: Never Alcohol Use Standard Drinks/Week Comments Yes 0 (1 standard drink = 0.6 oz pur e alcohol) wine occasionally [place] Depression Scale Answer Date Recorded [place] Depression Scale Total 0 12/19/2020 The thought [...] Description 12/30/2024 1:00 PM EDT Office Visit [facility] ENDOCRINOLOGY [address] [address] Gaby Villarreal PA [address] [facility] [address] [place] [address] documented as of this encounter Visit Diagnoses Not on filedocumented in this encounter Care Teams Log Clerk Relationship Specialty Start Date End Date Juliocesar Diaz DO [address] [facility] [address] [place] [address] PCP - General Internal Medicine 11/26/22 documented as of this encounter
--- OUTSIDE RECORDS SUMMARY | 2024-11-30 19:22 | XMS_ITS | Encounter Summary ---
Author Organization [facility] Address [address] [place] [address] Care Team Providers Care Bill Distributor Name Role Phone Juliocesar Diaz Primary Care Provider Encounter Details Date Type Department Care Team (Late st Contact Info) Description 08/21/2024 Results Follow-Up [facility] OBGYN [address] [phone] Michelle Sullivan, SERVICE PLANNER [address] [place] [address] Social History Tobacco Use Types Packs/Day Years Used Date Smoking Tobacco: Never Smokeless Tobacco: Never Alcohol Use Standard Drinks/Week Comments Yes 0 (1 standard drink = 0.6 oz pur e alcohol) wine occasionally [place] Depression Scale Answer Date Recorded [place] Depression Scale Total 0 12/19/2020 The thought [...] Description 12/30/2024 1:00 PM EDT Office Visit [facility] ENDOCRINOLOGY [address] [facility] 100 [place] [address] Gaby Villarreal PA [address] [facility] 100 [place], [place] [id number] documented as of this encounter Visit Diagnoses Not on filedocumented in this encounter Care Teams Bill Distributor Relationship Specialty Start Date End Date Juliocesar Diaz DO [address] [facility] [address] [place] [address] PCP - General Internal Medicine 11/26/22 documented as of this encounter
--- NOTE | 2024-11-30 19:43 | CT_ITS ---
PROCEDURE INFORMATION: Exam: CT Abdomen And Pelvis With Contrast Exam date and time: 11/30/2024 9:24 PM Age: 29 years old Clinical indication: Abdominal pain TECHNIQUE: Imaging protocol: Computed tomography of the abdomen and pelvis with contrast. Radiation optimization: All CT scans at this facility use at least one of these dose optimization techniques: automated exposure control; mA and/or kV adjustment per patient size (includes targeted exams where dose is matched to clinical indication); or iterative reconstruction. Contrast material: ISOVUE; Contrast volume: 75 ml; Contrast route: IV; COMPARISON: CT ANGIO CHEST PE PROTOCOL 09/10/2024 12:15 AM FINDINGS: Liver: There is diffuse hypoattenuation of the liver compatible with mild hepatic steatosis. Gallbladder and biliary ducts: The gallbladder is contracted but otherwise unremarkable. Pancreas: Normal. No ductal dilation. Spleen: Normal. No splenomegaly. Adrenal glands: Normal. No mass. Kidneys and ureters: Normal. No hydronephrosis. Stomach and bowel: Unremarkable. No obstruction. No mucosal thickening. Appendix: No evidence of appendicitis. Intraperitoneal space: Unremarkable. No free air. No significant fluid collection. Vasculature: Unremarkable. No abdominal aortic aneurysm. Lymph nodes: Left upper quadrant small bowel thickening with multiple prominent mesenteric nodes measuring greater than 5 mm in short axis can be seen with mild infectious or inflammatory enteritis. Urinary bladder: Unremarkable as visualized. Reproductive: An intrauterine device is present. Bones/joints: Unremarkable. No acute fracture. Soft tissues: Normal. IMPRESSION: Left upper quadrant small bowel thickening with multiple prominent mesenteric nodes measuring greater than 5 mm in short axis can be seen with mild infectious or inflammatory enteritis.
[2024-11-30] MEDS: ACETAMINOPHEN 1,000MG/100ML VIAL 1000 MG IV (19:59)
[2024-11-30] MEDS: FAMOTIDINE 20MG/2ML VIAL 20 MG IV (19:59)
[2024-11-30] MEDS: 0.9 % SODIUM CHLORIDE 1000ML 1,000 ML 999 ML IV (19:59)
[2024-11-30] MEDS: KETOROLAC 30MG/ML VIAL 30 MG IV (19:59)
[2024-11-30] MEDS: SODIUM CHLORIDE 0.9% 10ML VIAL 8 ML IV (19:59)
[2024-11-30] MEDS: ONDANSETRON 4MG/2ML VIAL 4 MG IV (19:59)
--- NOTE | 2024-11-30 20:00 | ECG_ITS ---
APPROVED REPORT Exam: Resting ECG HR:82 bpm ECG Measurements Heart Rate 82 AXES IL 147 P 59 QRSd 87 QRS 79 QT 361 T 44 QTc 399 Conclusion SINUS RHYTHM NORMAL ECG UNCONFIRMED REPORT Electronically signed by : SHELIA SULLIVAN, 11/30/2024 22:58:47
--- NOTE | 2024-11-30 20:14 | ED_ITS ---
<Statement entered by Jerod Weston MD - 12/01/24 10:53> I was consulted by the MARIANO, and we discussed the complexity of the problems being addressed. I approve the treatment and management plan for this patient's care in the emergency department, thus performing a substantive portion of the medical decision making. Patient's workup showed a leukocytosis of 13.7, stable low hemoglobin of 11.2, hematocrit of 36.1, platelets of 348. Very mildly elevated anion gap of 15.2 but electrolytes within normal limits. No COTY. Liver enzymes and bilirubin within normal limits. Magnesium normal at 2.1. Initial troponin less than 0.01. Lipase of 162. Negative urine test. CT imaging was interpreted by me personally and is consistent with radiology interpretation of left upper quadrant small bowel thickening with prominent mesenteric lymph nodes consistent with enteritis. Patient was unable to provide a stool sample here in the emergency department, however since she has been having 2 weeks of symptoms, will send patient with stool sample to take at home and to return when able to provide it. At this time, is felt that she is appropriate for discharge. I encouraged her to take Zofran to help with nausea. Encouraged her to hydrate well. I encouraged her to take anti-inflammatories to help with pain. Return precautions were given. All questions were answered. She was then discharged from the emergency department in stable condition Jerod Weston MD Discharge Plan Disposition Patient Disposition: Home, Self-Care Prescriptions Prescriptions: New ondansetron 4 mg tablet,disintegrating 4 mg PO Q6H PRN (Reason: nausea and vomiting) Qty: 16 0RF No Action clonidine HCl 0.1 mg tablet 0.1 mg PO HS PRN (Reason: Insomnia) Patient Comments: TAKE 1 TO 2 TABLETS BY MOUTH AT BEDTIME NEEDED FOR INSOMNIA ziprasidone HCl 80 mg capsule 80 mg PO BID fluoxetine 20 mg capsule 40 mg PO DAILY ferrous sulfate [FeroSul] 325 mg (65 mg iron) tablet 325 mg PO DAILY Patient Comments: TAKE 1 TABLET BY MOUTH EVERY DAY buspirone 5 mg tablet 5 mg PO BID Qty: 60 0RF Referrals Follow up/Referrals: Juliocesar Diaz [Primary Care Provider, Medical] - See instructions Activity Restrictions/Add. Instructions Additional Instructions/Restrictions: You have inflammation of your intestinal tract, likely caused by a viral illness. You can return the stool sample to the registration desk and we will send it for testing. In the meantime, you take Zofran for nausea as well as ibuprofen and Tylenol to help with pain. Follow-up with your primary care physician. If you develop any new or worsening symptoms, or if you become concerned for your health for any reason, return to the emergency department for evaluation Clinical Impressions Clinical Impression: Enteritis, Diarrhea, Abdominal pain Instructions Patient Instructions: DI for Diarrhea and Traveler's Diarrhea -- Adult, DI for Diarrhea and Traveler's Diarrhea -- Child, DI for Nausea -- Adult, DI for Nausea -- Child Print Language Print Language: Hebrew Discharge ED Provider: Jerod Weston General Adult HPI General Chief complaint: Nausea/Vomiting/Diarrhea Stated complaint: passing out, diarrhea, vomiting, abd pain Time Seen by Provider: 11/30/24 19:40 Mode of Arrival: Ambulatory Description of Symptoms (Recalled from ER Triage Doc. by RN): Patient states she has been fightinmg sickness since 11/14. States it came back on stronger at 11/24. Reports nausea, vomtiting and diarrhea. States she cannot keep fluids down. Also reports a headache npot relieved by tylenol. History of Present Illness HPI narrative: 29-year-old female presents to the ED today for complaints of viral illness since 11/14/2024. She says that she has since been unable to get rid of it. She says the symptoms got worse on 11/24/2024. She has had nausea, vomiting and diarrhea. She says she is having straight yellow watery diarrhea that is like acid. She states that every time she eats she has straight diarrhea. She is unable to tolerate any food or fluids. States that she will throw up for the first hour and a half that she is awake. She has constant gas on her stomach. She says she is always dizzy and fatigued because she is unable to tolerate food. She eats and has nausea and diarrhea. She has no fevers. Related Data Home Medications ?Medication ?Instructions ?Recorded ?Confirmed clonidine HCl 0.1 mg tablet 0.1 mg PO HS PRN Insomnia 09/10/24 09/10/24 ferrous sulfate 325 mg (65 mg 325 mg PO DAILY 09/10/24 09/10/24 iron) tablet (FeroSul) fluoxetine 20 mg capsule 40 mg PO DAILY 09/10/2409/01 ziprasidone HCl 80 mg capsule 80 mg PO BID 09/10/24 Previous Rx's ?Medication ?Instructions ?Recorded buspirone 5 mg tablet 5 mg PO BID #60 tabs 5 ondansetron 4 mg disintegrating 4 mg PO Q6H PRN nausea and 11/30/24 tablet vomiting #16 tabs Allergies Allergy/AdvReac Type Severity Reaction Status Date / Time Penicillins Allergy Mild Verified 03/19/22 09:17 [facility] Disclaimer: The information contained in this section may have been updated after the patient was seen, as this information can be updated by other users. Medical History Bipolar II disorder Social History Smoking Status: Never smoker alcohol intake: never substance use type: denies use current occupational status: unemployed Travel in the last 8 weeks?: None household members: spouse housing: house number of children: 1 Have you lived/traveled outside US in past 30 days?: No Contact w/someone who lives/traveled outside US past 30 days?: No Exposure to someone with infectious disease in past 14 days?: No Do you have a fever (greater than 100.4 F or 38 C)?: No Have you tested positive for COVID-19?: No Exposed to someone with COVID-19 in past 14 days?: No Do you have a sore throat?: No Do you have a cough?: No Do you have any weakness?: No Do you have any diarrhea?: No Are you experiencing any unusual bleeding?: No Do you have any muscle aches/pain?: No Do you have any abdominal pain?: Yes Are you experiencing loss of taste or smell?: No Other Medical History Have you received the Flu Vaccine for this season: No Have you received the Pneumonia Vaccine: No ROS Obtained: Yes Systems reviewed as appropriate & no additional complaints except as documented Constitutional Constitutional: Reports as per HPI Physical Exam General General appearance: alert Head Head exam: normocephalic Eye Eye exam: Present PERRL and EOMI ENT ENT exam: Present normal oropharynx and mucous membranes moist Neck Neck exam: Present full ROM and trachea midline Respiratory Respiratory exam: Present normal lung sounds bilaterally Cardiovascular Cardiovascular exam: Present regular rate, normal rhythm, normal heart sounds, +S1 and +S2 Abdominal Exam Abdominal exam: Present soft and normal bowel sounds Abdominal tenderness: Present diffuse Extremities Exam Extremities exam: Present normal inspection, full ROM and normal capillary refill Back Exam Back exam: Present tenderness Neurological Exam Neurological exam: Present alert and oriented X3 Skin Skin exam: Present warm and dry Medical Decision Making Medical Records Screening: Per USPSTF and CDC recommendations, given the prevalence of disease in our region, it is our hospital?s policy to screen for HIV and viral Hepatitis for all patients aged 18 and over and those with ongoing risk factors. Jelani Inquiry Pt receiving controlled substance: No Jelani was queried for this patient: No Vital Signs: 11/30/24 19:24 11/30/24 19:26 11/30/24 19:30 Temperature 98.2 F Temperature Source Oral Pulse Rate 100 H Pulse Rate [Right] 92 H Respiratory Rate 17 Blood Pressure 132/84 Blood Pressure [Right Arm] 132/84 Blood Pressure Mean 94 Blood Pressure Mean [Right Arm] 100 02 Sat by Pulse Oximetry 100 95 Oxygen Delivery Method Room Air Room Air 11/30/24 19:30 11/30/24 19:32 11/30/24 19:46 Temperature Temperature Source Pulse Rate 98 H 71 93 H Pulse Rate [Right] Respiratory Rate 17 Blood Pressure 124/78 Blood Pressure [Right Arm] Blood Pressure Mean Blood Pressure Mean [Right Arm] 02 Sat by Pulse Oximetry 100 95 100 Oxygen Delivery Method Room Air Room Air Room Air 11/30/24 20:00 11/30/24 20:00 11/30/24 20:15 Temperature Temperature Source Pulse Rate 83 76 Pulse Rate [Right] Respiratory Rate Blood Pressure 141/87 H Blood Pressure [Right Arm] Blood Pressure Mean 105 Blood Pressure Mean [Right Arm] 02 Sat by Pulse Oximetry 100 100 Oxygen Delivery Method Room Air Room Air 11/30/24 20:30 11/30/24 22:55 Temperature 98.7 F Temperature Source Pulse Rate 85 74 Pulse Rate [Right] Respiratory Rate 17 Blood Pressure 115/87 Blood Pressure [Right Arm] Blood Pressure Mean Blood Pressure Mean [Right Arm] 02 Sat by Pulse Oximetry 100 Oxygen Delivery Method Room Air Room Air Lab Data Lab Results 11/30/24 20:15: WBC 13.7 H, RBC 4.26, Hgb 11.2 L, Hct 36.1 L, MCV 84.7, MCH 26.3 L, MCHC 31.0 L, RDW 14.3, Plt Count 348, MPV 10.2, Neut % (Auto) 79.9, Lymph % (Auto) 12.6, [place] % (Auto) 6.3, Eos % (Auto) 0.4, Baso % (Auto) 0.3, Neut # (Auto) 11.0 H, Lymph # (Auto) 1.7, [place] # (Auto) 0.9, Eos # (Auto) 0.1, Baso # (Auto) 0.0, Sodium 140, Potassium 4.2, Chloride 102, Carbon Dioxide 27, Anion Gap 15.2 H, BUN 16, Creatinine 0.80, Estimated Creat Clear 115, Estimated GFR 85, Est GFR ( Amer) 103, Glucose 84, Calcium 9.4, Magnesium 2.1, Total Bilirubin 0.5, AST 26, ALT 17, Alkaline Phosphatase 64, Troponin I < 0.01, Total Protein 7.4, Albumin 4.5, Globulin 2.9, Albumin/Globulin Ratio 1.6, Lipase 162 11/30/24 20:36: Urine HCG, Qual Negative 11/30/24 20:15 11/30/24 20:15 Orders (Tests/Meds): ED MEDICATIONS Discontinued Medications Generic Name Dose Route Start Last Admin Trade Name Freq PRN Reason Stop Dose Admin Acetaminophen 1,000 mg 11/30/24 19:43 11/30/24 19:59 Acetaminophen 1,000mg/100ml Vial IV 11/30/24 19:44 1,000 mg ONCE ONE Administration Famotidine 20 mg 11/30/24 19:43 11/30/24 19:59 Famotidine 20mg/2ml Vial IV 11/30/24 19:44 20 mg ONCE ONE Administration Sodium Chloride 1,000 mls @ 999 mls/hr 11/30/24 19:43 11/30/24 22:22 Sod Chlor 0.9% 1000ml Bag IV 11/30/24 20:43 Infused .Q1H1M ONE Infusion Iopamidol 75 ml 11/30/24 21:29 11/30/24 21:29 Iopamidol-370 (76%);100ml Bottle IV 11/30/24 21:30 75 ml ONCE ONE Administration Ketorolac Tromethamine 30 mg 11/30/24 19:43 11/30/24 19:59 Ketorolac 30mg/Ml Vial IV 11/30/24 19:44 30 mg ONCE ONE Administration Ondansetron HCl 4 mg 11/30/24 19:43 11/30/24 19:59 Ondansetron 4mg/2ml Vial IV 11/30/24 19:44 4 mg ONCE ONE Administration Sodium Chloride 8 ml 11/30/24 19:43 11/30/24 19:59 Sodium Chloride 0.9% 10ml Vial IV 12/30/24 19:42 8 ml NEEDED PRN Administration dilute pepcid Sodium Chloride 10 ml 11/30/24 21:29 11/30/24 21:29 Sodium Chloride 0.9% 10ml Syr (Rad Only) IV 11/30/24 21:30 10 ml ONCE ONE Administration ORDERS Category Date Time Status CT abdomen pelvis w con Stat Cat Scan 11/30/24 19:43 Completed CBC [Complete Blood Count Auto Diff] Stat Lab 11/30/24 20:15 Completed Comprehensive Metabolic Panel Stat Lab 11/30/24 20:15 Completed Lipase Stat Lab 11/30/24 20:15 Completed Magnesium Stat Lab 11/30/24 20:15 Completed Trop I [Troponin I] Stat Lab 11/30/24 20:15 Completed Urine , HCG Qual. Stat Lab 11/30/24 20:36 Completed Medical Decision Narrative: patient is a 29-year-old female presenting to the emergency department for evaluation of abdominal pain, gas, bloating, diarrhea with food. Patient is hemodynamically stable and nontoxic-appearing upon arrival, afebrile. Differential diagnosis includes cholecystitis, ulcer, viral illness, among others. Workup will be conducted with hematologic labs, specific imaging. Initial inventions include crystalloid bolus, analgesics, antibiotics. Will discuss case with . Critical Care Critical Care Time Critical Care Time: No
[2024-11-30 20:35] LABS: Hematocrit 36.1 % (37.0-47.0); Hemoglobin 11.2 g/dL (12.2-16.2); Immature Granulocytes % 0.5 %; Mean Corpuscular HGB Conc 31.0 g/dL (31.8-35.4); Mean Corpuscular Hemoglobin 26.3 pg (27.0-31.2); Mean Corpuscular Volume 84.7 fl (81-99); Nucleated Red Blood Cells % 0 %; Platelet Count 348 K/mm3 (142-424); Red Blood Count 4.26 M/mm3 (4.20-5.40); Red Cell Distribution Width-SD 43.1 fL; White Blood Count 13.7 K/mm3 (4.8-10.8)
[2024-11-30 20:47] LABS: Alanine Aminotransferase 17 U/L (12-78); Albumin Level 4.5 g/dl (3.5-5.0); Albumin/Globulin Ratio 1.6 (1.1-1.8); Alkaline Phosphatase 64 U/L (38-126); Anion Gap 15.2 mEq/L (5-15); Aspartate Amino Transferase 26 U/L (14-36); Bilirubin,Total 0.5 mg/dl (0.2-1.3); Blood Urea Nitrogen 16 mg/dl (7-17); Calcium 9.4 mg/dl (8.4-10.2); Carbon Dioxide 27 mmol/L (22.0-30.0); Chloride 102 mmol/L (98-107); Creatinine Clearance Estimated 115 mL/min (50-200); Creatinine,Serum 0.80 mg/dl (0.52-1.04); Estimated Glomerular Filt Rate 85 ml/min (>60); GFR (African American) 103 ML/MIN (>60); Globulin 2.9 g/dL (1.3-3.2); Glucose 84 mg/dl (74-100); Lipase 162 U/L (23-300); Magnesium 2.1 mg/dl (1.6-2.3); Potassium 4.2 mmoL/L (3.5-5.1); Sodium 140 mmol/L (136-145); Total Protein,Serum 7.4 g/dl (6.3-8.2)
[2024-11-30 21:06] LABS: Urine Pregnancy, HCG Qual. Negative (Negative)
[2024-11-30 21:23] LABS: Troponin I < 0.01 ng/ml (0.00-0.034)
[2024-11-30] MEDS: SODIUM CHLORIDE 0.9% 10ML SYR (RAD ONLY) 10 ML IV (21:29)
[2024-11-30] MEDS: IOPAMIDOL-370 (76%);100ML BOTTLE 75 ML IV (21:29)
== END 2024-11-30 23:05 | disposition home or self-care (01) ==
PROVIDERS: Nurse Practitioner; Emergency Provider Student in an Organized Health Care Education/Training Program; PCP Internal Medicine
DX: R10.84 Generalized abdominal pain (principal); K52.9 Noninfective gastroenteritis and colitis, unspecified; R11.2 Nausea with vomiting, unspecified; R51.9 Headache, unspecified
CPT/HCPCS: 74177; 80053; 81025; 83690; 83735; 84484; 85025; 93005; 96361; 96374; 96375; 99285; J0131; J1885; J2405; J7030; Q9967

== ENCOUNTER 2024-12-01 13:13 | Emergency (ER) | payer SELFPAY ==
--- OUTSIDE RECORDS SUMMARY | 2024-11-05 15:30 | XMS_ITS | Encounter Summary ---
Author Organization [facility] Address [address] [place] [address] Care Team Providers Care Veneer Sample Maker Name Role Phone Juliocesar Diaz Primary Care Provider Reason for Visit * Reason Comments std testing Encounter Details Date Type Department Care Team (Late st Contact Info) Description 11/05/2024 3:30 PM EDT Office Visit [facility] OBGYN [address] [place] [address] Michelle Sullivan M, NEUROPSYCHIATRIC AIDE 1700 [facility] [address] [place] [address] Screen for STD (sexually transmitted disease) (Primary Dx); IUD check up Social History Tobacco Use Types Packs/Day Years Used Date Smoking Tobacco: Never Smokeless Tobacco: Never Tobacco Cessation:Counseling Given: Not Answered Alcohol Use Standard Drinks/Week Comments Yes 0 (1 standard drink = 0.6 oz pur e alcohol) wine occasionally [place] Depression Scale Answer Date Recorded [place] Depression Scale Total 0 12/19/2020 The thought [...] this encounter Progress Notes * Michelle Sullivan, NEUROPSYCHIATRIC AIDE - 11/05/2024 3:30 PM EDT Images from [...] cycle since placement. Denies pelvic pain. 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 Michelle Laguna, NEUROPSYCHIATRIC AIDE Objective BP 112/78 Resp 18 Ht 165.1 cm (65 ) Wt 85.3 kg (188 lb) LMP (LMP Unknown) BMI 31.28 kg/m?? Physical Exam Vitals and nursing note reviewed. Exam conducted with a retail special event associate present. Constitutional: Appearance: Normal appearance. Pulmonary: Effort: [...] tenderness. Comments: IUD strings visible and appropriate. 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 [...] Description 12/30/2024 1:00 PM EDT Office Visit [facility] ENDOCRINOLOGY [address] [address] Gaby Villarreal PA [address] [address] documented as of this encounter Procedures Procedure [...] 8:09 PM EDT Performed at: 01 - [facility], [place], [place] [id number] Shank Sorter: Tracy Gilman MD, Phone: [phone] Patient Fasting: N Michelle Sullivan APRN MICROBIOLOGY - GENERAL OR DERABLES Final Result [facility] (AMBULATORY) [address] [place] [address], [place] [phone] [facility] [address] [place] [address], [place] [phone] documented in this encounter Visit Diagnoses Diagnosis Screen for STD (sexually transmitted disease)- Primary Screening examination for venereal disease IUD check up documented in this encounter Care Teams Veneer Sample Maker Relationship Specialty Start Date End Date Juliocesar Diaz DO [address] [address] PCP - General Internal Medicine 11/26/22 documented as of this encounter
--- OUTSIDE RECORDS SUMMARY | 2024-12-01 13:36 | XMS_ITS | Encounter Summary ---
Author Organization [facility] Address [address] [place] [address] Care Team Providers Care Newspaper Delivery Driver Name Role Phone Juliocesar Diaz Primary Care Provider Encounter Details Date Type Department Care Team (Late st Contact Info) Description 11/09/2024 Results Follow-Up [facility] O[facility]YN [address] [place] [address] Michelle Sullivan, IN FLIGHT REFUELING MANAGER 1700 [facility] [address] [place] [address] Social History Tobacco Use Types Packs/Day Years Used Date Smoking Tobacco: Never Smokeless Tobacco: Never Alcohol Use Standard Drinks/Week Comments Yes 0 (1 standard drink = 0.6 oz pur e alcohol) wine occasionally [place] Depression Scale Answer Date Recorded [place] Depression Scale Total 0 12/19/2020 The thought [...] Description 12/30/2024 1:00 PM EDT Office Visit [facility] END[facility] [address] [facility] 100 [place] [address] Gaby Villarreal PA 3084 [facility] 100 [place], [place] [id number] documented as of this encounter Visit Diagnoses Not on filedocumented in this encounter Care Teams Newspaper Delivery Driver Relationship Specialty Start Date End Date Juliocesar Diaz DO 1138 [facility] 290 [place] [address] PCP - General Internal Medicine 11/26/22 documented as of this encounter
--- OUTSIDE RECORDS SUMMARY | 2024-12-01 13:36 | XMS_ITS | Encounter Summary ---
Author Organization [facility] Address [address] [place] [address] Care Team Providers Care Security Control Room Officer Name Role Phone Juliocesar Diaz Primary Care Provider Encounter Details Date Type Department Care Team (Late st Contact Info) Description 08/21/2024 Results Follow-Up [facility] OBGYN [address] [phone] Michelle Sullivan, TECHNICAL ADVISOR [address] [place] [address] Social History Tobacco Use Types Packs/Day Years Used Date Smoking Tobacco: Never Smokeless Tobacco: Never Alcohol Use Standard Drinks/Week Comments Yes 0 (1 standard drink = 0.6 oz pur e alcohol) wine occasionally [place] Depression Scale Answer Date Recorded [place] Depression Scale Total 0 12/19/2020 The thought [...] Description 12/30/2024 1:00 PM EDT Office Visit [facility] ENDOCRINOLOGY 3084 [facility] 100 [place] [address] Gaby Villarreal PA 3084 [facility] 100 [place], [place] [phone] documented as of this encounter Visit Diagnoses Not on filedocumented in this encounter Care Teams Security Control Room Officer Relationship Specialty Start Date End Date Juliocesar Diaz DO 1138 [facility] 290 [place] [address] PCP - General Internal Medicine 11/26/22 documented as of this encounter
--- OUTSIDE RECORDS SUMMARY | 2024-12-01 13:36 | XMS_ITS | Encounter Summary ---
Author Organization [facility] Address [address] [place] [address] Care Team Providers Care Huc Name Role Phone Juliocesar Diaz Primary Care Provider Reason for Visit * Reason Onset Date Comments Med Refill 05/10/2024 Encounter Details Date Type Department Care Team (Late st Contact Info) Description 05/10/2024 Refill [facility] OBGYN [address] [place] [address] Michelle Sullivan, PUBLICATION DESIGNER [address] [place] [address] Social History Tobacco Use Types Packs/Day Years Used Date Smoking Tobacco: Never Smokeless Tobacco: Never Alcohol Use Standard Drinks/Week Comments Yes 0 (1 standard drink = 0.6 oz pur e alcohol) wine occasionally [place] Depression Scale Answer Date Recorded [place] Depression Scale Total 0 12/19/2020 The thought [...] Description 12/30/2024 1:00 PM EDT Office Visit [facility] ENDOCRINOLOGY [address] [address] Gaby Villarreal PA [address] [facility] 100 [place] [address] documented as of this encounter Visit Diagnoses Not on filedocumented in this encounter Care Teams Huc Relationship Specialty Start Date End Date Juliocesar Diaz DO 1138 [facility] 290 [place] [address] PCP - General Internal Medicine 11/26/22 documented as of this encounter
--- OUTSIDE RECORDS SUMMARY | 2024-12-01 13:36 | XMS_ITS | Clinical Summary ---
Author Organization [facility] Address [address] [place] [address] Care Team Providers Care Vegetable Handler Name Role Phone Juliocesar Diaz Santosh CHAVEZ [...] Department Care Team Description 11/09/2024 Results Follow-Up [facility] [place] [address] Michelle Sullivan APRN 11/05/2024 3:30 PM EDT Office Visit [facility] [place] [address] Michelle Sullivan, V BELT COVERER Screen for STD (sexually transmitted disease) (Primary Dx); IUD check up 11/05/2024 Travel 09/21/2024 Results Follow-Up [facility] [place] [address] Michelle Sullivan APRN 09/11/2024 11:00 AM EDT Office Visit [facility] O[facility]YN [address] [place] [address] Michelle Sullivan, V BELT COVERER Women's annual routine gynecological examination (Primary Dx); [...] 0.6 oz pur e alcohol) wine occasionally [place] Depression Scale Answer Date Recorded [place] Depression Scale Total 0 12/19/2020 The thought [...] 12/30/2024 1:00 PM EDT Office Visit [facility] ENDOCRINOLOGY 3084 [facility] 100 [place] [address] Gaby Villarreal, SARA [address] [id number] Health Maintenance Due Date Last Done Comments [...] 8:09 PM EDT Performed at: 01 - [address] [place] [id number] Civil Lawyer: Tracy Gilman MD, Phone: [phone] Patient Fasting: N Michelle Sullivan V BELT COVERER MICROBIOLOGY - GENERAL OR DERABLES Final Result [facility] ([facility]ULAT[facility]) [address] [place] [address], [facility] [address] [place] [address], * LIQUID-BASED PAP SMEAR WITH HPV GENOTYPING IF ASCUS (MARLENE,COR,MAD) (09/11/2024 12:11 PM EDT) Reference Lab Report [facility] [address] [place] [address] or [phone] Bubba Mcdermott M.D., Hotel Or Motel Receptionist PATIENT NAME LABORATORY NO. ANA CHASE. [id number] AGE SEX SSN CLIENT REF # [id number] 29 1995 F [id number] [facility] NEELIMA SAENZ REQUESTING Flory [place] [address] MICHELLE SULLIVAN DATE COLLECTED DATE RECEIVED DATE [...] of chlamydial and gonococcal disease using the [employer] system. Sendout Ancillary Vaginosis Tests ATOPOBIUM VAGINAE: [...] developed and its performance characteristics determined by [facility] It has not been cleared or approved by the U.S. Food and Drug Administration. The FDA has determined that such clearance or approval is not necessary. [facility] ([facility]) is located in [place], [place] CLIENT SERVICES DIRECTOR: DARIEN VAZQUEZ (ASCP) CPT CODES: 74532, 34828, 47417, [id number] 09/19/2024 5:59 PM EDT [facility] ThinPrep Vial Collection / Unknown 09/11/2024 12:11 PM EDT 09/11/2024 12:11 PM EDT Michelle Sullivan APRN PATHOLOGY/CYTOLOGY ORDERA BLES Final Result Performing Organization Address [facility]/ZIP Co de Phone Number [facility]
[address] [place] [address], [place] [phone] * PAP SMEAR SCANNED (03/22/2021) Lucila Rosales APRN CHART REVIEW TABS Final Re sult Performing Organization Address [facility]/ZIP Co de Phone Number [facility]
[address] [place] [address], [place] [phone] * (ABNORMAL) Obstetric Panel (04/07/2020 5:09 PM EST) Hepatitis B Surface Ag Negative Negative [facility] Hep C Virus Ab <0.1 0.0 - 0.9 s/co ratio [facility] Comment: Negative: < 0.8 Indeterminate: 0.8 - 0.9 Positive: > 0.9 The CDC recommends that a positive HCV antibody result be followed up with a HCV Nucleic Acid Amplification test ([id number]). RPR Non Reactive Non Reactive [facility] [...] AM EST Performed at: 01 - [facility] [address] [place] [id number] Civil Lawyer: Juarez Gasca PhD, Phone: [phone] Patient Fasting: N Holly Sher MD LAB BLOOD ORDERABLES Final Resu lt [facility] ([facility]) [address] [place] [address], [facility] [address] [place] [address], from Last 3 Months or Most Recently [...] pulse or is breathing): Full Care Teams Vegetable Handler Relationship Specialty Start Date End Date Juliocesar Diaz DO 1138 [facility] 290 [place] [address] PCP - General Internal Medicine 11/26/22
--- OUTSIDE RECORDS SUMMARY | 2024-12-01 13:36 | XMS_ITS | Encounter Summary ---
Author Organization [facility] Address [address] [place] [address] Care Team Providers Care Tile Presser Name Role Phone Juliocesar Diaz Primary Care Provider Encounter Details Date Type Department Care Team (Latest Contact Info) Description 11/05/2024 Travel Social History Tobacco Use Types Packs/Day Years Used Date Smoking Tobacco: Never Smokeless Tobacco: Never Alcohol Use Standard Drinks/Week Comments Yes 0 (1 standard drink = 0.6 oz pur e alcohol) wine occasionally [place] Depression Scale Answer Date Recorded [place] Depression Scale Total 0 12/19/2020 The thought [...] Description 12/30/2024 1:[address] EDT Office [address] [facility] ENDOCRINOLOGY 3084 [facility] 100 [place] [address] Gaby Villarreal, SARA 3084 [facility] 100 [place] [address] documented as of this encounter Visit Diagnoses Not on filedocumented in this encounter Care Teams Tile Presser Relationship Specialty Start Date End Date Juliocesar Diaz DO 1138 [facility] 290 [place] [address] PCP - General Internal Medicine 11/26/22 documented as of this encounter
--- OUTSIDE RECORDS SUMMARY | 2024-12-01 13:36 | XMS_ITS | Encounter Summary ---
Author Organization [facility] Address [address] [place] [address] Care Team Providers Care Vice President Of Sales Name Role Phone Juliocesar Diaz Primary Care Provider Encounter Details Date Type Department Care Team (Late st Contact Info) Description 09/21/2024 Results Follow-Up [facility] OBGYN [address] [place] [address] Michelle Sullivan, RACETRACK STEWARD 1700 [facility] [address] [place] [address] Social History Tobacco Use Types Packs/Day Years Used Date Smoking Tobacco: Never Smokeless Tobacco: Never Alcohol Use Standard Drinks/Week Comments Yes 0 (1 standard drink = 0.6 oz pur e alcohol) wine occasionally [place] Depression Scale Answer Date Recorded [place] Depression Scale Total 0 12/19/2020 The thought [...] Description 12/30/2024 1:00 PM EDT Office Visit [facility] ENDOCRINOLOGY 3084 [facility] 100 [place] [address] Gaby Villarreal PA 3084 [employer] 100 [place], [place] [id number] documented as of this encounter Visit Diagnoses Not on filedocumented in this encounter Care Teams Vice President Of Sales Relationship Specialty Start Date End Date Juliocesar Diaz DO 1138 [facility] 290 [place] [address] PCP - General Internal Medicine 11/26/22 documented as of this encounter
[2024-12-01 13:37] VITALS: BP 156/78; PULSE 86; RESP 18; TEMP 36.7; O2SAT 100; BMI 29.6
[2024-12-01 13:40] VITALS: PULSE 84; RESP 17; O2SAT 100
[2024-12-01 13:45] VITALS: PULSE 95; RESP 19; O2SAT 99
[2024-12-01 13:56] LABS: Clostridium Difficile A/B, PCR Not Detected (NotDetected); Plesimonas Shigalloides, PCR Not Detected (NotDetected)
[2024-12-01 13:58] LABS: Adenovirus F 40/41, stool Not Detected (NotDetected); Cyclospora Cayetanesis Not Detected (NotDetected); Salmonella, PCR Not Detected (NotDetected); Shiga-like toxin E coli Not Detected (NotDetected); Shigella Enterovasive E coli Not Detected (NotDetected); Vibrio, PCR Not Detected (NotDetected); Yersinia Entercolitica, PCR Not Detected (NotDetected)
[2024-12-01 13:58] LABS: Microscopic, Urine URINE MICROSCOPIC (MICROSCOPIC)
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
[2024-12-01 14:04] LABS: Bilirubin,Urine Negative (Negative); Color,Urine YELLOW (Yellow); Glucose,Urine (UA) Negative (Negative); Ketones,Urine Negative (Negative); Leukocyte Esterase,Urine 1+ (Negative); PH,Urine 6.0 (5.0-8.5); Protein,Urine Negative (Negative); Specific Gravity, Urine 1.010 (1.005-1.030); Urobilinogen,Urine 0.2 EU/dl (0.2)
[2024-12-01 14:05] LABS: Hematocrit 34.3 % (37.0-47.0); Hemoglobin 11.0 g/dL (12.2-16.2); Immature Granulocytes % 0.3 %; Mean Corpuscular HGB Conc 32.1 g/dL (31.8-35.4); Mean Corpuscular Hemoglobin 26.8 pg (27.0-31.2); Mean Corpuscular Volume 83.7 fl (81-99); Nucleated Red Blood Cells % 0 %; Platelet Count 311 K/mm3 (142-424); Red Blood Count 4.10 M/mm3 (4.20-5.40); Red Cell Distribution Width-SD 42.3 fL; White Blood Count 7.6 K/mm3 (4.8-10.8)
[2024-12-01 14:20] LABS: Bacteria,Urine 1+ /lpf
[2024-12-01] MEDS: 0.9 % SODIUM CHLORIDE 1000ML 1,000 ML 999 ML IV (14:20)
[2024-12-01 14:21] LABS: Alanine Aminotransferase 16 U/L (12-78); Albumin Level 4.4 g/dl (3.5-5.0); Albumin/Globulin Ratio 1.6 (1.1-1.8); Alkaline Phosphatase 93 U/L (38-126); Anion Gap 16.8 mEq/L (5-15); Aspartate Amino Transferase 26 U/L (14-36); Bilirubin,Total 0.8 mg/dl (0.2-1.3); Blood Urea Nitrogen 12 mg/dl (7-17); Calcium 9.1 mg/dl (8.4-10.2); Carbon Dioxide 24 mmol/L (22.0-30.0); Chloride 102 mmol/L (98-107); Creatinine Clearance Estimated 132 mL/min (50-200); Creatinine,Serum 0.80 mg/dl (0.52-1.04); Estimated Glomerular Filt Rate 85 ml/min (>60); GFR (African American) 103 ML/MIN (>60); Globulin 2.7 g/dL (1.3-3.2); Glucose 91 mg/dl (74-100); Lipase 111 U/L (23-300); Magnesium 2.0 mg/dl (1.6-2.3); Potassium 3.8 mmoL/L (3.5-5.1); Sodium 139 mmol/L (136-145); Total Protein,Serum 7.1 g/dl (6.3-8.2)
[2024-12-01] MEDS: KETOROLAC 30MG/ML VIAL 30 MG IV (14:22)
[2024-12-01] MEDS: DEXAMETHASONE 4MG/ML 1ML VIAL 8 MG IV (14:22)
[2024-12-01 14:26] LABS: C-Reactive Protein 7.3 mg/L (0-4)
[2024-12-01] MEDS: MORPHINE 4MG/ML SYRINGE 4 MG IV (15:01)
[2024-12-01] MEDS: FAMOTIDINE 20MG/2ML VIAL 20 MG IV (15:23)
[2024-12-01] MEDS: BELLADONNA ALKALOIDS 60 ML ML PO (15:24)
[2024-12-01 15:43] VITALS: BP 131/86; PULSE 78; RESP 17; O2SAT 99
[2024-12-01 17:45] VITALS: BP 140/74; PULSE 89; RESP 19; TEMP 36.9; O2SAT 99
--- NOTE | 2024-12-02 15:48 | PC.NURSE ---
Prelim urine culture results discussed with . No change needed to the pts treatment.
[2024-12-03 08:23] LABS: Calprotectin, Fecal 591 ug/g (0-120)
--- NOTE | 2024-12-03 08:23 | PC.NURSE ---
Final urine culture discussed with . No change needed to pts treatment.
== END 2024-12-01 17:46 | disposition home or self-care (01) ==
PROVIDERS: Nurse Practitioner; Emergency Provider Student in an Organized Health Care Education/Training Program; PCP Internal Medicine
DX: R10.84 Generalized abdominal pain (principal); A04.4 Other intestinal Escherichia coli infections; R19.5 Other fecal abnormalities; K21.9 Gastro-esophageal reflux disease without esophagitis
CPT/HCPCS: 80053; 81001; 83690; 83735; 83993; 85025; 85651; 86140; 87086; 87088; 87186; 87507; 96361; 96374; 96375; 99284; 99285; J1100; J1885; J2270; J7030

== ENCOUNTER 2024-12-03 01:45 | Emergency (ER) | payer SELFPAY ==
--- OUTSIDE RECORDS SUMMARY | 2024-11-05 15:30 | XMS_ITS | Encounter Summary ---
[facility] Organization [facility] Address [address] [place] [address] Care Team Providers Care Ammunition And Explosives Handler Name Role Phone Juliocesar Diaz DO Primary Care Provider Reason for Visit * Reason Comments std testing Encounter Details Date Type Department Care Team (Late st Contact Info) Description 11/05/2024 3:30 PM EDT Office Visit [facility] OBGYN [address] [place] [address] Michelle Sullivan, VICE PRESIDENT OF PROCUREMENT [address] [facility] [address] [place] [address] Screen for STD (sexually transmitted disease) (Primary Dx); IUD check up Social History Tobacco Use Types Packs/Day Years Used Date Smoking Tobacco: Never Smokeless Tobacco: Never Tobacco Cessation:Counseling Given: Not Answered Alcohol Use Standard Drinks/Week Comments Yes 0 (1 standard drink = 0.6 oz pur e alcohol) wine occasionally [place] Depression Scale Answer Date Recorded [place] Depression Scale Total 0 12/19/2020 The thought of harming myself has occurred to me . Never 12/19/2020 Abuse Screen Answer Date Recorded Feels Unsafe at Home or Work/School no 11/06/2022 Feels Threatened by Someone no 07/2022 Does Anyone Try to Keep You From Having Contact with Others or Doing Things Outside Your Home? no 11/06/2022 Physical Signs of Abuse Present no 11/06/2022 Comments No Sex and Gender Information Value Date Recorded Sex Assigned at Not on file Legal Sex Female 11:15 AM EDT Gender Identity Not on file Sexual Orientation Not on file documented as of this encounter Last Filed Vital Signs Vital Sign Reading Time Taken Comments Blood Pressure 112/78 11/05/2024 3:28 PM EDT Pulse - - Temperature - - Respiratory Rate 18 11/05/2024 3:28 PM EDT Oxygen Saturation - - Inhaled Oxygen Concentration - - Weight 85.3 kg (188 lb) 11/05/2024 3:28 PM EDT Height 165.1 cm (5' 5 ) 11/05/2024 3:28 PM EDT Body Mass Index 31.28 11/05/2024 3:28 PM EDT documented in this encounter Progress Notes * Michelle Sullivan, VICE PRESIDENT OF PROCUREMENT - 11/05/2024 3:30 PM EDT Images from the original note were not included. Chief Complaint Patient presents with std testing Subjective HPI Ana He is a 29 y.o. female, , who presents for screening for STD's. Her last LMP was No LMP recorded (lmp unknown).. She reports denies knowledge of risky exposure. The patient denies dysuria, vulvar itching, vulvar burning, and vaginal discharge. She is requesting STD testing without blood work. The patient reports a past history of: chlamydia.. She reports intermittent spotting since IUD placement. She has not had a menstrual cycle since placement. Denies pelvic pain. 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 History of abnormal Pap smear: yes - [facility] 2022 OB History 4 Para 2 Term 2 0 AB 2 Living 2 SAB 2 IAB 0 Ectopic 0 Molar Multiple 0 Live Births 2 Obstetric Comments IVF with previous losses Current Outpatient Medications: ARIPiprazole (ABILIFY) 2 MG tablet, Take 1 tablet by mouth Daily., Disp: , Rfl: cloNIDine (CATAPRES) 0.1 MG tablet, , Disp: , Rfl: ferrous sulfate 140 (45 Fe) MG tablet controlled-release tablet, Take by mouth Daily With Breakfast., Disp: , Rfl: FLUoxetine (PROzac) 20 MG capsule, 1 capsule., Disp: , Rfl: furosemide (LASIX) 20 MG tablet, As Needed., Disp: , Rfl: metroNIDAZOLE (METROGEL) 0.75 % vaginal gel, 1 applicator full per vagina qhs x 5 days and then twice weekly for 4 months, Disp: 70 g, Rfl: 2 propranolol (INDERAL) 20 MG tablet, Take 1-2 tablets by mouth Every 6 (Six) Hours As Needed. (Patient not taking: Reported on 11/05/2024), Disp: , Rfl: Past Medical History: Diagnosis Date Anxiety Depression Female infertility History of chlamydia Treated in 2012 History of recurrent UTIs Irregular menses Prolactinoma Past Surgical History: Procedure Laterality Date WISDOM TOOTH EXTRACTION WRIST SURGERY Left 09/12/2023 WRIST SURGERY Right 09/29/2023 The additional following portions of the patient's history were reviewed and updated as appropriate: allergies, current medications, past family history, past medical history, past social history, past surgical history, and problem list. Review of Systems Constitutional: Negative. Genitourinary: Positive for vaginal bleeding. All other systems reviewed and are negative. I have reviewed and agree with the HPI, ROS, and historical information as entered above. Michelle Laguna, VICE PRESIDENT OF PROCUREMENT Objective BP 112/78 Resp 18 Ht 165.1 cm (65 ) Wt 85.3 kg (188 lb) LMP (LMP Unknown) BMI 31.28 kg/m?? Physical Exam Vitals and nursing note reviewed. Exam conducted with a dental instructor present. Constitutional: Appearance: Normal appearance. Pulmonary: Effort: Pulmonary effort is normal. Abdominal: Palpations: Abdomen is soft. Genitourinary: Labia: Right: No rash, tenderness or lesion. Left: No rash, tenderness or lesion. Vagina: Bleeding present. No lesions. Cervix: No cervical motion tenderness, discharge, lesion or cervical bleeding. Uterus: Normal. Not enlarged, not fixed and not tender. Adnexa: Right: No mass or tenderness. Left: No mass or tenderness. Comments: IUD strings visible and appropriate. Embedded Software Development Engineer Present Neurological: Mental Status: She is alert. Wet mount performed? No. Assessment & Plan Assessment and Plan Problem List Items Addressed This Visit None Visit Diagnoses Screen for STD (sexually transmitted disease) - Primary Relevant Orders Chlamydia trachomatis, Neisseria gonorrhoeae, Trichomonas vaginalis, PCR - Swab, Cervix IUD check up See orders for STD cultures and assays She was unable to keep her previous IUD check appt. Strings appropriate and no issues reported. Michelle Sullivan APRN 11/05/2024 documented in this encounter Plan of Treatment Upcoming Encounters Date Type Department Care Team (Late st Contact Info) Description 12/30/2024 1:00 PM EDT Office Visit [facility] ENDOCRINOLOGY [address] [phone] Gaby Villarreal PA [address] [address] documented as of this encounter Procedures Procedure Name Priority Date/Time Associated Diagnosis Comments CHLAMYDIA TRACHOMATIS, NEISSERIA GONORRHOEAE, TRICHOMONAS VAGINALIS, PCR Routine 11/05/2024 4:00 PM EDT Screen for STD (sexually transmitted disease) documented in this encounter Results * Chlamydia trachomatis, Neisseria gonorrhoeae, Trichomonas vaginalis, PCR - Swab, Cervix (54:00 PM EDT) Chlamydia trachomatis, ANDRZEJ Negative Negative [facility] Gonococcus by ANDRZEJ Negative Negative [facility] Trichomonas vaginosis Negative Negative [facility] Swab Cervix uteri structure / Unknown 11/05/2024 4:00 PM EDT 11/05/2024 Comment:CX Narrative [facility] ([facility]ATORY) - 11/06/2024 8:09 PM EDT Performed at: [facility] [id number] Rf Manager: Tracy Gilman MD, Phone: [phone] Patient Fasting: N us Michelle Sullivan VICE PRESIDENT OF PROCUREMENT MICROBIOLOGY - GENERAL OR DERABLES Final Result [facility] (AMBULATORY) [address] [place] [address], [place] [phone] [facility] [address] [place] [address], [place] [phone] documented in this encounter Visit Diagnoses Diagnosis Screen for STD (sexually transmitted disease)- Primary Screening examination for venereal disease IUD check up documented in this encounter Care Teams Ammunition And Explosives Handler Relationship Specialty Start Date End Date Juliocesar Diaz DO [address] [place] [address] PCP - General Internal Medicine 11/26/22 documented as of this encounter
--- OUTSIDE RECORDS SUMMARY | 2024-12-02 22:40 | XMS_ITS | Encounter Summary ---
[facility] Address [address] [place] [address] Care Team Providers Care Board Turner Name Role Phone Juliocesar Diaz DO Primary Care Provider Reason for Visit * Reason Comments Abdominal Pain Encounter Details Date Type Department Care Team (Late st Contact Info) Description 12/02/2024 10:40 PM EDT - 12/03/2024 1:03 AM EDT Emergency [facility] EMERGENCY DEPARTMENT [address] [address] Juliocesar Nix MD [address] [facility] [address] [place] [address] Acute cystitis without hematuria (Primary Dx); Gastroenteritis; Dehydration Discharge Disposition: Home or Self Care Social History Tobacco Use Types Packs/Day Years Used Date Smoking Tobacco: Never Smokeless Tobacco: Never Alcohol Use Standard Drinks/Week Comments Yes 0 (1 standard drink = 0.6 oz pur e alcohol) wine occasionally Manhattan Depression Scale Answer Date Recorded Manhattan Depression Scale Total 0 12/19/2020 The thought of harming myself has occurred to me . Never 12/19/2020 Abuse Screen Answer Date Recorded Feels Unsafe at Home or Work/School no 12/02/2024 Feels Threatened by Someone no 03/2024 Does Anyone Try to Keep You From Having Contact with Others or Doing Things Outside Your Home? no 12/02/2024 Physical Signs of Abuse Present no 12/02/2024 Comments No Sex and Gender Information Value Date Recorded Sex Assigned at Not on file Legal Sex Female 11:15 AM EDT Gender Identity Not on file Sexual Orientation Not on file documented as of this encounter Last Filed Vital Signs Vital Sign Reading Time Taken Comments Blood Pressure 124/77 12/03/2024 12:30 AM EDT Pulse 87 12/03/2024 1:00 AM EDT Temperature 36.7 C (98 F) 12/02/2024 10:38 PM EDT Respiratory Rate 18 12/02/2024 10:38 PM EDT Oxygen Saturation 100% 12/03/2024 1:00 AM EDT Inhaled Oxygen Concentration - - Weight 83.9 kg (185 lb) 12/02/2024 10:38 PM EDT Height 167.6 cm (5' 6 ) 12/02/2024 10:38 PM EDT Body Mass Index 29.86 12/02/2024 10:38 PM EDT documented in this encounter Functional Status * Calculated C-SSRS Risk Score (Lifetime/Recent) Answer Date of Assessment Author No Risk Indicated 12/02/2024 10:38 PM EDT Umm Srivastava RN * [place] Suicide Severity Rating Scale (Screener/Recent Self-Report) Question Answer Date of Assessment Author 1. Wish to be (Past 1 Month) No 025 10:38 PM EDT Umm Srivastava RN 2. Non-Specific Active Suici shay Thoughts (Past 1 Month) No 12/02/2024 10:38 PM EDT Rupinder Srivastava RN 6. Suicidal Behavior (Lifetime) No 10:38 PM EDT Umm Srivastava RN documented as of this encounter Discharge Instructions * Discharge Instructions* Cooper Alonso PA - 12/03/2024 12:23 AM EDT Please continue using Zofran at home as prescribed for fluid toleration. Continue with your Bentyl as needed for abdominal pain and cramping. Continue on your antibiotic as you do have a UTI as well.Call gastroenterology as you have been previously educated upon for follow-up. Return to the emergency department any new or worsening symptoms. documented in this encounter Medications at Time of Discharge ARIPiprazole (ABILIFY) 2 MG tablet Take 1 tablet by mouth Daily. 10/23/2024 cloNIDine (CATAPRES) 0.1 MG tablet 12/23/2023 ferrous sulfate 140 (45 Fe) MG tablet controlled-relea se tablet Take by mouth Daily With Breakfast. FLUoxetine (PROzac) 20 MG capsule 1 capsule. 11/24/2022 furosemide (LASIX) 20 MG tablet As Needed. 06/27/2022 metroNIDAZOLE (METROGEL) 0.75 % vaginal gel 1 applicator full per vagina qhs x 5 days and then twice weekly for 4 months 70 g 2 09/11/2024 propranolol (INDERAL) 20 MG tablet Take 1-2 tablets by mouth Every 6 (Six) Hours As Needed. 05/30/2024 documented as of this encounter Miscellaneous Notes * [facility] Provider Note - Juliocesar Nix MD - 12/02/2024 11:11 PM EDT Subjective History of Present Illness 29-year-old female presents to the emergency department today with complaints of nausea vomiting diarrhea. Patient states she has had symptoms for approximately 1 month worsening over the past week. States that her abdominal pain is generalized in nature and continuous. States that she was seen at [facility] last night given Zofran as well as ciprofloxacin for E. coli. States she has been unable to take her ciprofloxacin because she cannot keep anything down. When asked if patient was taking Zofran she stated I cannot function and stated that her mouth is too dry and she has no saliva to take her ODT Zofran. States that she does not like the taste of the medication either. Review of Systems Constitutional: Negative. HENT: Negative. Eyes: Negative. Respiratory: Negative. Cardiovascular: Negative. Gastrointestinal: Positive for abdominal pain, diarrhea, nausea and vomiting. Endocrine: Negative. Genitourinary: Negative. Musculoskeletal: Negative. Skin: Negative. Allergic/Immunologic: Negative. Neurological: Negative. Hematological: Negative. Psychiatric/Behavioral: Negative. Past Medical History: Diagnosis Date Anxiety Depression Female infertility History of chlamydia Treated in 2013 History of recurrent UTIs Irregular menses Prolactinoma Allergies Allergen Reactions Penicillins Hives As a baby. Has tolerated Keflex Past Surgical History: Procedure Laterality Date WISDOM TOOTH EXTRACTION WRIST SURGERY Left 09/12/2023 WRIST SURGERY Right 09/29/2023 Family History Problem Relation Age of Onset Hypertension Father Breast cancer Mother Stomach cancer Mother Ovarian cancer Mother Colon cancer Neg Hx Uterine cancer Neg Hx Social History Socioeconomic History Marital status: Tobacco Use Smoking status: Never Smokeless tobacco: Never Vaping Use Vaping status: Never Used Substance and Sexual Activity Alcohol use: Yes Comment: wine occasionally Drug use: No Sexual activity: Yes Partners: Male control/protection: Tubal ligation Objective Physical Exam Constitutional: Appearance: She is well-developed. HENT: Head: Normocephalic. Mouth/Throat: Pharynx: Oropharynx is clear. Eyes: Extraocular Movements: Extraocular movements intact. Cardiovascular: Rate and Rhythm: Normal rate and regular rhythm. Heart sounds: Normal heart sounds. Pulmonary: Effort: Pulmonary effort is normal. Breath sounds: Normal breath sounds. Abdominal: General: Abdomen is flat. Bowel sounds are normal. Palpations: Abdomen is soft. Tenderness: There is abdominal tenderness in the right lower quadrant. Skin: General: Skin is warm. Capillary Refill: Capillary refill takes less than 2 seconds. Comments: Dry mucous membranes Neurological: General: No focal deficit present. Mental Status: She is alert. Psychiatric: Mood and Affect: Mood normal. Behavior: Behavior normal. Procedures ED Course Patient exam conducted and lab/imaging evaluated. Physical exam revealed right lower quadrant abdominal tenderness and dry mucous membranes. Lab workup revealed no acute abnormalities and CT scan ordered for rebound tenderness noted on exam of the right lower quadrant. Pending at this time. At thistime discussion was had with Dr. Nix as care was transferred at this time. Prior to this imaging revealed no acute abnormalities. Patient was then stating she was passing out while she continued totalk in the ER and further had no neurologic abnormalities. CT head further unremarkable as well asEKG. Patient did have a UTI on her urinalysis although patient was prescribed ciprofloxacin and not taking the medication due to patient noncompliance with her Zofran. Patient awaiting p.o. challengeand cessation of fluids in the emergency department prior to discharge. Medical Decision Making Problems Addressed: Acute cystitis without hematuria: complicated acute illness or injury Dehydration: complicated acute illness or injury Gastroenteritis: complicated acute illness or injury Amount and/or Complexity of Data Reviewed Labs: ordered. Radiology: ordered. ECG/medicine tests: ordered. Risk Prescription drug management. Final diagnoses: Acute cystitis without hematuria Gastroenteritis Dehydration ED Disposition ED Disposition ED Disposition Discharge Condition Stable Comment -- Juliocesar Diaz, DO [address] [facility] [address] [place] [id number] Medication List No changes were made to your prescriptions during this visit. documented in this encounter Plan of Treatment Upcoming Encounters Date Type Department Care Team (Late st Contact Info) Description 12/30/2024 1:00 PM EDT Office Visit [facility] END[facility] [address] [facility] [address] [place] [address] Gaby Villarreal PA [address] [facility] [address] [place] [address] Pending Results Name Type Priority Associated Diagnoses Date /Time ECG 12 Lead Syncope ECG STAT 12/03 12:18 AM EDT documented as of this encounter Procedures Procedure Name Priority Date/Time Associated Diagnosis Comments ECG 12-LEAD STAT 12/03/2024 12:18 AM EDT Procedure Note - 12/03/2024 12:18 AM EDTThis note is in progress. Test Reason : Syncope Blood Pressure : */* mmHG Vent. Rate : 83 BPM Atrial Rate : 83 BPM P-R Int : 138 ms QRS Dur : 82 ms QT Int : 396 ms P-R-T Axes : 63 64 39 degrees QTcB Int : 465 ms Normal sinus rhythm Possible Left atrial enlargement Borderline ECG No previous ECGs available Referred By: Confirmed By: CT ABDOMEN PELVIS W CONTRAST STAT 12/03/2024 12:[address] HEAD WO CONTRAST STAT 12/03/2024 12:02 AM EDT URINALYSIS, MICROSCOPIC ONLY STAT 12/02/2024 11:32 PM EDT URINALYSIS W/ MICROSCOPIC IF INDICATED (NO CULTURE) STAT 12/02/2024 11:32 PM EDT ROMERO TOP STAT 12/02/2024 11:03 PM EDT GOLD TOP - SST STAT 12/02/2024 11:03 PM EDT DK GREEN TOP STAT 12/02/2024 11:03 PM EDT CBC WITH AUTO DIFFERENTIAL STAT 12/02/2024 11:03 PM EDT LAVENDER TOP STAT 12/02/2024 11:03 PM EDT LIGHT BLUE TOP STAT 12/02/2024 11:03 PM EDT RAINBOW DRAW STAT 12/02/2024 11:03 PM EDT SEDIMENTATION RATE STAT 12/02/2024 11:03 PM EDT CBC AND DIFFERENTIAL STAT 12/02/2024 11:03 PM EDT C-REACTIVE PROTEIN STAT 12/02/2024 11:03 PM EDT HCG, QUANTITATIVE, STAT 12/02/2024 11:03 PM EDT MAGNESIUM STAT 12/02/2024 11:03 PM EDT LIPASE STAT 12/02/2024 11:03 PM EDT COMPREHENSIVE METABOLIC PANEL STAT 12/02/2024 11:03 PM EDT documented in this encounter Results * CT Head Without Contrast (12/03/2024 12:02 AM EDT) Anatomical Region Laterality Modality Head N/A Computed Tomogra phy 12/03/2024 12:0 8 AM EDT Impressions 12/03/2024 12:11 AM EDT Impression: 1.No acute intracranial process. 2.No acute intra-abdominal or intrapelvic process. 3.Ancillary findings as described above. Electronically Signed: Ebony Raymond MD 12/03/2024 12:11 AM EDT Workstation ID: [id number] Narrative 12/03/2024 12:[address] ABDOMEN PELVIS W CONTRAST, CT HEAD WO CONTRAST Date of Exam: 12/02/2024 11:54 PM EDT Indication: RLQ abd tenderness. Comparison: None available. Technique: Axial CT images were obtained of the abdomen and pelvis following the uneventful intravenous administration of iodinated contrast. Reconstructed coronal and sagittal images were also obtained. Volumetric axial CT images of the head were obtained without administration of intravenous contrast. Automated exposure control and iterative construction methods were used. Findings: Head: There is no evidence of hemorrhage. There is no mass effect or midline shift. There is no extracerebral collection. Ventricles are normal in size and configuration for patient's stated age. Posterior fossa is within normal limits. Calvarium and skull base appear intact. Visualized sinuses show no air fluid levels. Visualized orbits are unremarkable. CT abdomen pelvis lung Bases: The visualized lung bases and lower mediastinal structures demonstrates no acute process. Liver: Liver is normal in size and CT density. No focal lesions. Biliary/Gallbladder: The gallbladder is normal without evidence of radiopaque stones. The biliary tree is nondilated. Spleen: Spleen is normal in size and CT density. Pancreas: Pancreas is normal. There is no evidence of pancreatic mass or peripancreatic fluid. Kidneys: Kidneys are normal in size. Punctate nonobstructing calculus present within the superior pole of the right kidney. No obstructing calculus identified. No evidence of hydronephrosis. Adrenals: Adrenal glands are unremarkable. Retroperitoneal/Lymph Nodes/Vasculature: No retroperitoneal adenopathy is identified. Gastrointestinal/Mesentery: The bowel loops are non-dilated without wall thickening or mass. The appendix appears within normal limits. No evidence of obstruction. No free air. No mesenteric fluid collections identified. Mesenteric vasculature appears unremarkable. No evidence of hernia. No significant stool burden. Bladder: The bladder is normal. Genital: Uterus appears unremarkable. IUD is present within the uterine cavity which appears in appropriate position. Ovaries appear unremarkable. No adnexal mass. No significant free fluid. Bony Structures: Visualized bony structures are consistent with the patient's age. No acute osseous abnormality. Procedure Note Ebony Raymond MD - 12/03/2024 CT ABDOMEN PELVIS W CONTRAST, CT HEAD WO CONTRAST Date of Exam: 12/02/2024 11:54 PM EDT Indication: RLQ abd tenderness. Comparison: None available. Technique: Axial CT images were obtained of the abdomen and pelvisfollowing the uneventful intravenous administration of iodinated contrast.Reconstructed coronal and sagittal images were also obtained. Volumetricaxial CT images of the head were obtained without administration of intravenous contrast. Automatedexposure control and iterative construction methods were used. Findings: Head: There is no evidence of hemorrhage. There is no mass effect ormidline shift. There is no extracerebral collection. Ventricles are normal in size and configuration for patient's stated age. Posterior fossa is within normal limits. Calvarium and skull base appear intact. Visualized sinuses show no airfluid levels. Visualized orbits are unremarkable. CT abdomen pelvis lung Bases: The visualized lung bases and lower mediastinal structures demonstrates noacute process. Liver: Liver is normal in size and CT density. No focal lesions. Biliary/Gallbladder: The gallbladder is normal without evidence of radiopaque stones. Thebiliary tree is nondilated. Spleen: Spleen is normal in size and CT density. Pancreas: Pancreas is normal. There is no evidence of pancreatic mass orperipancreatic fluid. Kidneys: Kidneys are normal in size. Punctate nonobstructing calculus presentwithin the superior pole of the right kidney. No obstructing calculusidentified. No evidence of hydronephrosis. Adrenals: Adrenal glands are unremarkable. Retroperitoneal/Lymph Nodes/Vasculature: No retroperitoneal adenopathy is identified. Gastrointestinal/Mesentery: The bowel loops are non-dilated without wall thickening or mass. Theappendix appears within normal limits. No evidence of obstruction. No freeair. No mesenteric fluid collections identified. Mesenteric vasculatureappears unremarkable. No evidence of hernia. No significant stool burden. Bladder: The bladder is normal. Genital: Uterus appears unremarkable. IUD is present within the uterine cavitywhich appears in appropriate position. Ovaries appear unremarkable. Noadnexal mass. No significant free fluid. Bony Structures: Visualized bony structures are consistent with the patient's age. No acuteosseous abnormality. IMPRESSION: Impression: 1.No acute intracranial process. 2.No acute intra-abdominal or intrapelvic process. 3.Ancillary findings as described above. Electronically Signed: Eboyn Raymond MD 12/03/2024 12:11 AM EDT Workstation ID: [id number] Cooper RUIZ IM CT ORDERABLES Final Result * CT Abdomen Pelvis With Contrast (12/03/2024 12:02 AM EDT) Anatomical Region Laterality Modality Abdomen, Pelvis N/A Computed Tomogra phy 12/03/2024 12:0 8 AM EDT Impressions 12/03/2024 12:11 AM EDT Impression: 1.No acute intracranial process. 2.No acute intra-abdominal or intrapelvic process. 3.Ancillary findings as described above. Electronically Signed: Ebony Raymond MD 12/03/2024 12:11 AM EDT Workstation ID: [id number] Narrative 12/03/2024 12:[address] ABDOMEN PELVIS W CONTRAST, CT HEAD WO CONTRAST Date of Exam: 12/02/2024 11:54 PM EDT Indication: RLQ abd tenderness. Comparison: None available. Technique: Axial CT images were obtained of the abdomen and pelvis following the uneventful intravenous administration of iodinated contrast. Reconstructed coronal and sagittal images were also obtained. Volumetric axial CT images of the head were obtained without administration of intravenous contrast. Automated exposure control and iterative construction methods were used. Findings: Head: There is no evidence of hemorrhage. There is no mass effect or midline shift. There is no extracerebral collection. Ventricles are normal in size and configuration for patient's stated age. Posterior fossa is within normal limits. Calvarium and skull base appear intact. Visualized sinuses show no air fluid levels. Visualized orbits are unremarkable. CT abdomen pelvis lung Bases: The visualized lung bases and lower mediastinal structures demonstrates no acute process. Liver: Liver is normal in size and CT density. No focal lesions. Biliary/Gallbladder: The gallbladder is normal without evidence of radiopaque stones. The biliary tree is nondilated. Spleen: Spleen is normal in size and CT density. Pancreas: Pancreas is normal. There is no evidence of pancreatic mass or peripancreatic fluid. Kidneys: Kidneys are normal in size. Punctate nonobstructing calculus present within the superior pole of the right kidney. No obstructing calculus identified. No evidence of hydronephrosis. Adrenals: Adrenal glands are unremarkable. Retroperitoneal/Lymph Nodes/Vasculature: No retroperitoneal adenopathy is identified. Gastrointestinal/Mesentery: The bowel loops are non-dilated without wall thickening or mass. The appendix appears within normal limits. No evidence of obstruction. No free air. No mesenteric fluid collections identified. Mesenteric vasculature appears unremarkable. No evidence of hernia. No significant stool burden. Bladder: The bladder is normal. Genital: Uterus appears unremarkable. IUD is present within the uterine cavity which appears in appropriate position. Ovaries appear unremarkable. No adnexal mass. No significant free fluid. Bony Structures: Visualized bony structures are consistent with the patient's age. No acute osseous abnormality. Procedure Note Ebony Raymond MD - 12/03/2024 CT ABDOMEN PELVIS W CONTRAST, CT HEAD WO CONTRAST Date of Exam: 12/02/2024 11:54 PM EDT Indication: RLQ abd tenderness. Comparison: None available. Technique: Axial CT images were obtained of the abdomen and pelvisfollowing the uneventful intravenous administration of iodinated contrast.Reconstructed coronal and sagittal images were also obtained. Volumetricaxial CT images of the head were obtained without administration of intravenous contrast. Automatedexposure control and iterative construction methods were used. Findings: Head: There is no evidence of hemorrhage. There is no mass effect ormidline shift. There is no extracerebral collection. Ventricles are normal in size and configuration for patient's stated age. Posterior fossa is within normal limits. Calvarium and skull base appear intact. Visualized sinuses show no airfluid levels. Visualized orbits are unremarkable. CT abdomen pelvis lung Bases: The visualized lung bases and lower mediastinal structures demonstrates noacute process. Liver: Liver is normal in size and CT density. No focal lesions. Biliary/Gallbladder: The gallbladder is normal without evidence of radiopaque stones. Thebiliary tree is nondilated. Spleen: Spleen is normal in size and CT density. Pancreas: Pancreas is normal. There is no evidence of pancreatic mass orperipancreatic fluid. Kidneys: Kidneys are normal in size. Punctate nonobstructing calculus presentwithin the superior pole of the right kidney. No obstructing calculusidentified. No evidence of hydronephrosis. Adrenals: Adrenal glands are unremarkable. Retroperitoneal/Lymph Nodes/Vasculature: No retroperitoneal adenopathy is identified. Gastrointestinal/Mesentery: The bowel loops are non-dilated without wall thickening or mass. Theappendix appears within normal limits. No evidence of obstruction. No freeair. No mesenteric fluid collections identified. Mesenteric vasculatureappears unremarkable. No evidence of hernia. No significant stool burden. Bladder: The bladder is normal. Genital: Uterus appears unremarkable. IUD is present within the uterine cavitywhich appears in appropriate position. Ovaries appear unremarkable. Noadnexal mass. No significant free fluid. Bony Structures: Visualized bony structures are consistent with the patient's age. No acuteosseous abnormality. IMPRESSION: Impression: 1.No acute intracranial process. 2.No acute intra-abdominal or intrapelvic process. 3.Ancillary findings as described above. Electronically Signed: Ebony Raymond MD 12/03/2024 12:11 AM EDT Workstation ID: [id number] Cooper RUIZ IMG CT ORDERABLES Final Result * (ABNORMAL) Urinalysis, Microscopic Only - Urine, Clean Catch (12/02/2024 11:32 PM EDT) RBC, UA 3-5(A) None Seen, 0-2 /HPF 12/03/2024 12:10 AM EDT [facility] WBC, UA 6-10(A) None Seen, 0-2 /HPF 12/03/2024 12:10 AM EDT [facility] Bacteria, UA 3+(A) None Seen /HPF 12/03/2024 12:10 AM EDT [facility] Squamous Epithelial Cells, UA 7-12(A) None Seen, 0-2 /HPF 12/03/2024 12:10 AM EDT [facility] Hyaline Casts, UA None Seen None Seen /LPF 12/03/2024 12:10 AM EDT [facility] Mucus, UA Trace None Seen, Trace /HPF 12/03/2024 12:10 AM [facility] Methodology Manual Light Microscopy 12/03/2024 12:10 AM [facility] Urine Urine specimen obtained by clean catch procedure / Unknown Collection / Unknown 12/02/2024 11:32 PM EDT 12/02/2024 11:38 PM EDT us Juliocesar Nix MD URINE ORDERABLES Final Result [facility]
[address] [place] [address], [place] * (ABNORMAL) Urinalysis With Microscopic If Indicated (No Culture) - Urine, Clean Catch (12/02/2024 11:32 PM EDT) Color, UA Yellow Yellow, Straw 12/03/2024 12:00 AM [facility] Appearance, UA Clear Clear 12/03/2024 12:00 AM [facility] pH, UA 6.5 5.0 - 8.0 12/03/2024 12:00 AM [facility] Specific [place], UA 1.025 1.005 - 1.030 12/03/2024 12:00 AM [facility] Glucose, UA Negative Negative 12/03/2024 12:00 AM [facility] Ketones, UA Negative Negative 12/03/2024 12:00 AM [facility] Bilirubin, UA Negative Negative 12/03/2024 12:00 AM [facility] Blood, UA Moderate (2+)(A) Negative 12/03/2024 12:00 AM [facility] Protein, UA Negative Negative 12/03/2024 12:00 AM [facility] Leuk Esterase, UA Small (1+)(A) Negative 12/03/2024 12:00 AM [facility] Nitrite, UA Negative Negative 12/03/2024 12:00 AM [facility] Urobilinogen, UA 0.2 E.U./dL 0.2 - 1.0 E.U./dL 12/03/2024 12:00 AM [facility] Urine Urine specimen obtained by clean catch procedure / Unknown Collection / Unknown 12/02/2024 11:32 PM EDT 12/02/2024 11:38 PM EDT us Juliocesar Nix MD URINE ORDERABLES Final Result Performing Organization Address [facility] de Phone Number [facility]
[address] [place] [address], [place] * Magnesium (12/02/2024 11:03 PM EDT) Magnesium 1.9 1.6 - 2.6 mg/dL 12/02/2024 11:31 PM EDT [facility] Blood Venipuncture / Unknown 12/02/2024 11:03 PM EDT 12/02/2024 11:10 PM EDT [facility] BLOOD ORDERABLES Final Resul t Performing Organization Address [facility] Phone Number [facility]
[address] [place] [address], [place] * (ABNORMAL) Sedimentation Rate (12/02/2024 11:03 PM EDT) Sed Rate 30(H) 0 - 20 mm/hr 12/02/2024 11:38 PM EDT [facility] Blood 12/02/2024 11:0 3 PM EDT 12/02/2024 11:36 PM EDT Cooper RUIZ LAB BLOOD ORDERABLES Final Resul t Performing Organization Address [facility] de Phone Number [facility]
[address] [place] [address], [place] * C-reactive Protein (12/02/2024 11:03 PM EDT) C-Reactive Protein <0.30 0.00 - 0.50 mg/dL 12/02/2024 11:30 PM EDT [facility] Blood Venipuncture / Unknown 12/02/2024 11:03 PM EDT 12/02/2024 11:10 PM EDT us Cooper RUIZ LAB BLOOD ORDERABLES Final Resul t [facility]
[address] [facility] [address] [place] [address], [place] * (ABNORMAL) CBC Auto Differential (12/02/2024 11:03 PM EDT) WBC 9.66 3.40 - 10.80 10*3/mm3 12/02/2024 11:13 PM EDT [facility] RBC 4.48 3.77 - 5.28 10*6/mm3 12/02/2024 11:13 PM EDT [facility] Hemoglobin 11.6(L) 12.0 - 15.9 g/dL 12/02/2024 11:13 PM EDT [facility] Hematocrit 37.2 34.0 - 46.6 % 12/02/2024 11:13 PM EDT [facility] MCV 83.0 79.0 - 97.0 fL 12/02/2024 11:13 PM EDT [facility] MCH 25.9(L) 26.6 - 33.0 pg 12/02/2024 11:13 PM EDT [facility] MCHC 31.2(L) 31.5 - 35.7 g/dL 12/02/2024 11:13 PM EDT [facility] RDW 14.0 12.3 - 15.4 % 12/02/2024 11:13 PM EDT [facility] RDW-SD 42.6 37.0 - 54.0 fl 12/02/2024 11:13 PM EDT [facility] MPV 9.9 6.0 - 12.0 fL 12/02/2024 11:13 PM EDT [facility] Platelets 338 140 - 450 10*3/mm3 12/02/2024 11:13 PM EDT [facility] Neutrophil % 59.0 42.7 - 76.0 % 12/02/2024 11:13 PM EDT [facility] Lymphocyte % 32.9 19.6 - 45.3 % 12/02/2024 11:13 PM EDT [facility] Monocyte % 7.6 5.0 - 12.0 % 12/02/2024 11:13 PM EDT [facility] Eosinophil % 0.2(L) 0.3 - 6.2 % 12/02/2024 11:13 PM EDT [facility] Basophil % 0.1 0.0 - 1.5 % 12/02/2024 11:13 PM EDT [facility] Immature Grans % 0.2 0.0 - 0.5 % 12/02/2024 11:13 PM EDT [facility] Neutrophils, Absolute 5.70 1.70 - 7.00 10*3/mm3 12/02/2024 11:13 PM EDT [facility] Lymphocytes, Absolute 3.18(H) 0.70 - 3.10 10*3/mm3 12/02/2024 11:13 PM EDT [facility] Monocytes, Absolute 0.73 0.10 - 0.90 10*3/mm3 12/02/2024 11:13 PM EDT [facility] Eosinophils, Absolute 0.02 0.00 - 0.40 10*3/mm3 12/02/2024 11:13 PM EDT [facility] Basophils, Absolute 0.01 0.00 - 0.20 10*3/mm3 12/02/2024 11:13 PM EDT [facility] Immature Grans, Absolute 0.02 0.00 - 0.05 10*3/mm3 12/02/2024 11:13 PM EDT [facility] Blood Venipuncture / Unknown 12/02/2024 11:03 PM EDT 12/02/2024 11:10 PM EDT us Juliocesar Nix MD LAB BLOOD ORDERABLES Final Resu lt [facility]
[address] [facility] [address] [place] [address], [place] * Light Blue Top (12/02/2024 11:03 PM EDT) Extra Tube Hold for add-ons. 12/02/2024 11:15 PM EDT [facility] Comment:Auto resulted Blood Venipuncture / Unknown 12/02/2024 11:03 PM EDT 12/02/2024 11:10 PM EDT Juliocesar Nix MD LAB BLOOD ORDER ONLY Final Resu lt [facility]
[address] [facility] [address] [place] [address], [place] * Romero Top (12/02/2024 11:03 PM EDT) Extra Tube Hold for add-ons. 12/02/2024 11:15 PM EDT [facility] Comment:Auto resulted. Blood Venipuncture / Unknown 12/02/2024 11:03 PM EDT 12/02/2024 11:10 PM EDT Juliocesar Nix MD LAB BLOOD ORDER ONLY Final Resu lt [facility]
[address] [facility] [address] [place] [address], [place] * Gold Top - SST (12/02/2024 11:03 PM EDT) Extra Tube Hold for add-ons. 12/02/2024 11:15 PM EDT [facility] Comment:Auto resulted. Blood Venipuncture / Unknown 12/02/2024 11:03 PM EDT 12/02/2024 11:10 PM EDT Juliocesar Nix MD LAB BLOOD ORDER ONLY Final Resu lt [facility]
[address] [facility] [address] [place] [address], [place] * Lavender Top (12/02/2024 11:03 PM EDT) Extra Tube hold for add-on 12/02/2024 11:15 PM EDT [facility] Comment:Auto resulted Blood Venipuncture / Unknown 12/02/2024 11:03 PM EDT 12/02/2024 11:10 PM EDT us Juliocesar Nix MD LAB BLOOD ORDER ONLY Final Resu lt [facility]
[address] [facility] [address] [place] [address], [place] * Green Top (Gel) (12/02/2024 11:03 PM EDT) Extra Tube Hold for add-ons. 12/02/2024 11:15 PM EDT [facility] Comment:Auto resulted. Blood Venipuncture / Unknown 12/02/2024 11:03 PM EDT 12/02/2024 11:10 PM EDT us Juliocesar Nix MD LAB BLOOD ORDER ONLY Final Resu lt [facility]
[address] [place] [address], [place] * hCG, Quantitative, (12/02/2024 11:03 PM EDT) HCG Quantitative <0.20 mIU/mL 12/03/19 11:41 PM EDT [facility] Blood Venipuncture / Unknown 12/02/2024 11:03 PM EDT 12/02/2024 11:10 PM EDT Narrative [facility] - 12/02/2024 11:41 PM EDT HCG Ranges by Gestational Age Females - non- premenopausal </= 1mIU/mL HCG Females - postmenopausal </= 7mIU/mL HCG 3 Weeks 5.8 - 71.2 mIU/mL 4 Weeks 9.5 - 750 mIU/mL 5 Weeks 217 - 7,138 mIU/mL 6 Weeks 158 - 31,795 mIU/mL 7 Weeks 3,697 - 163,563 mIU/mL 8 Weeks 32,065 - 149,571 mIU/mL 9 Weeks 63,803 - 151,410 mIU/mL 10 Weeks 46,509 - 186,977 mIU/mL 12 Weeks 27,832 - 210,612 mIU/mL 14 Weeks 13,950 - 62,530 mIU/mL 15 Weeks 12,039 - 70,971 mIU/mL 16 Weeks 9,040 - 56,451 mIU/mL 17 Weeks 8,175 - 55,868 mIU/mL 18 Weeks 8,099 - 58,176 mIU/mL Juliocesar Nix MD LAB BLOOD ORDERABLES Final Resu lt [facility]
[address] [place] [address], * Lipase (12/02/2024 11:03 PM EDT) Lipase 39 13 - 60 U/L 12/02/2024 11:31 PM EDT [facility] Blood Venipuncture / Unknown 12/02/2024 11:03 PM EDT 12/02/2024 11:10 PM EDT Juliocesar Nix MD LAB BLOOD ORDERABLES Final Resu lt [facility]
[address] [place] [address], * (ABNORMAL) Comprehensive Metabolic Panel (12/02/2024 11:03 PM EDT) Glucose 99 65 - 99 mg/dL 12/02/2024 11:31 PM EDT [facility] BUN 12.6 6.0 - 20.0 mg/dL 12/02/2024 11:31 PM EDT [facility] Creatinine 0.86 0.57 - 1.00 mg/dL 12/02/2024 11:31 PM EDT [facility] Sodium 139 136 - 145 mmol/L 12/02/2024 11:31 PM [facility] Potassium 3.5 3.5 - 5.2 mmol/L 12/02/2024 11:31 PM [facility] Chloride 103 98 - 107 mmol/L 12/02/2024 11:31 PM [facility] CO2 21.7(L) 22.0 - 29.0 mmol/L 12/02/2024 11:31 PM [facility] Calcium 9.1 8.6 - 10.5 mg/dL 12/02/2024 11:31 PM [facility] Total Protein 7.4 6.0 - 8.5 g/dL 12/02/2024 11:31 PM [facility] Albumin 4.7 3.5 - 5.2 g/dL 12/02/2024 11:31 PM [facility] ALT (SGPT) 13 1 - 33 U/L 12/02/2024 11:31 PM [facility] AST (SGOT) 18 1 - 32 U/L 12/02/2024 11:31 PM [facility] Alkaline Phosphatase 70 39 - 117 U/L 12/02/2024 11:31 PM [facility] Total Bilirubin 0.3 0.0 - 1.2 mg/dL 12/02/2024 11:31 PM [facility] Globulin 2.7 gm/dL 12/02/2024 11:31 PM [facility] A/G Ratio 1.7 g/dL 12/02/2024 11:31 PM [facility] BUN/Creatinine Ratio 14.7 7.0 - 25.0 12/02/2024 11:31 PM [facility] Anion Gap 14.3 5.0 - 15.0 mmol/L 12/02/2024 11:31 PM [facility] eGFR 93.9 >60.0 mL/min/1.7 3 12/02/2024 11:31 PM [facility] Blood Venipuncture / Unknown 12/02/2024 11:03 PM EDT 12/02/2024 11:10 PM EDT Narrative [facility] - 12/02/2024 11:31 PM EDT GFR Categories in Chronic Kidney Disease (CKD) GFR Category GFR (mL/min/1.73) Interpretation G1 90 or greater Normal or high (1) G2 60-89 Mild decrease (1) G3a 45-59 Mild to moderate decrease G3b 30-44 Moderate to severe decrease G4 15-29 Severe decrease G5 14 or less Kidney failure (1)In the absence of evidence of kidney disease, neither GFR category G1 or G2 fulfill the criteria for CKD. eGFR calculation 2020 CKD-EPI creatinine equation, which does not include race as a factor us Juliocesar Nix MD LAB BLOOD ORDERABLES Final Resu lt [facility]
[address] documented in this encounter Visit Diagnoses Diagnosis Acute cystitis without hematuria- Primary Gastroenteritis Other and unspecified noninfectious gastroenteritis and colitis Dehydration documented in this encounter Administered Medications Active Administered Medications - up to 3 most recent administrations Medication Order MAR Action Action Date Dose Rate Site Sodium Chloride (PF) 0.9 % 10 mL 10 mL, Intravenous, As Needed, Line Care, Starting on Sat12/02/24 at 2239 Inactive Administered Medications - up to 3 most recent administrations Medication Order MAR Action Action Date Dose Rate Site dicyclomine (BENTYL) capsule 20 mg 20 mg, Oral, Once, On Sat12/02/24 at 2330, For 1 dose Given 12/02/2024 11:28 PM EDT 20 mg iopamidol (ISOVUE-300) 61 % injection 100 mL 100 mL, Intravenous, Once in Imaging, On Beatrice 12/03/24 at 0030, For 1 dose Given 12/03/2024 12:02 AM EDT 100 mL lactated ringers bolus 1,000 mL 1,000 mL, Intravenous, at 1,000 mL/hr, Administer over 1 Hours, Once, On Sat12/02/24 at 2330, For 1 dose New Bag 12/02/2024 11:30 PM EDT 1,000 mL 1000 mL/hr ondansetron (ZOFRAN) injection 4 mg 4 mg, Intravenous, Once, On Sat12/02/24 at 2330, For 1 dose, If multiple N/V medications ordered, use in the following order: Ondansetron, Prochlorperazine, Promethazine. Use PO unless patient refuses or patient unable to swallow. Given 12/02/2024 11:31 PM EDT 4 mg documented in this encounter Active and Recently Administered Medications Times are shown in EDT. Scheduled Medication Order 12/01/2024 12/02/2024 12/03/2024 dicyclomine (BENTYL) capsule 20 mg (COMPLETED) 20 mg, Oral, Once, On Sat12/02/24 at 2330, For 1 dose 2328 (Given - Provider: César Tate, HAI) iopamidol (ISOVUE-300) 61 % injection 100 mL (COMPLETED) 100 mL, Intravenous, Once in Imaging, On Beatrice 12/03/24 at 0030, For 1 dose 0002 (Given - Provid er: Kenn Younger) lactated ringers bolus 1,000 mL (COMPLETED) 1,000 mL, Intravenous, at 1,000 mL/hr, Administer over 1 Hours, Once, On Sat12/02/24 at 2330, For 1 dose 2330 (New Bag - Provider: César Tate, HAI) 0059 (Stopped - Provider: César Tate, HAI) ondansetron (ZOFRAN) injection 4 mg (COMPLETED) 4 mg, Intravenous, Once, On Sat12/02/24 at 2330, For 1 dose, If multiple N/V medications ordered, use in the following order: Ondansetron, Prochlorperazine, Promethazine. Use PO unless patient refuses or patient unable to swallow. 2331 (Given - Provider: César Tate, HAI) PRN Medication Order 12/01/2024 12/02/2024 12/03/2024 Sodium Chloride (PF) 0.9 % 10 mL 10 mL, Intravenous, As Needed, Line Care, Starting on Sat12/02/24 at 2239 documented in this encounter Care Teams Board Turner Relationship Specialty Start Date End Date Juliocesar Diaz DO [address] [facility] [address] [place] [address] PCP - General Internal Medicine 11/26/22 documented as of this encounter
--- NOTE | 2024-12-03 01:53 | HMH.EDGENADL ---
Discharge Plan Disposition Patient Disposition: Home, Self-Care Prescriptions Prescriptions: New azithromycin 500 mg tablet 500 mg PO DAILY 5 Days Qty: 5 0RF promethazine 25 mg tablet 25 mg PO Q6H PRN (Reason: nausea and vomiting) Qty: 20 0RF No Action clonidine HCl 0.1 mg tablet 0.1 mg PO HS PRN (Reason: Insomnia) Patient Comments: TAKE 1 TO 2 TABLETS BY MOUTH AT BEDTIME NEEDED FOR INSOMNIA ziprasidone HCl 80 mg capsule 80 mg PO BID fluoxetine 20 mg capsule 40 mg PO DAILY ferrous sulfate [FeroSul] 325 mg (65 mg iron) tablet 325 mg PO DAILY Patient Comments: TAKE 1 TABLET BY MOUTH EVERY DAY buspirone 5 mg tablet 5 mg PO BID Qty: 60 0RF ondansetron 4 mg tablet,disintegrating 4 mg PO Q6H PRN (Reason: nausea and vomiting) Qty: 16 0RF dicyclomine 20 mg tablet 20 mg PO TID Qty: 90 0RF pantoprazole [Protonix] 40 mg tablet,delayed release (DR/EC) 40 mg PO DAILY 42 Days Qty: 42 0RF ciprofloxacin HCl 750 mg tablet 750 mg PO BID 3 Days Qty: 6 0RF Rx Instructions: patient to take this med for 3 days promethazine 25 mg tablet 25 mg PO Q6H PRN (Reason: nausea and vomiting) 7 Days Qty: 30 0RF Referrals Follow up/Referrals: Provider,Referral, MD [Primary Care Provider, Medical] - See instructions Activity Restrictions/Add. Instructions Additional Instructions/Restrictions: I sent a prescription for azithromycin to take for the next 4 days. Please discontinue the ciprofloxacin. Please follow-up with your primary care provider. Please return to the emergency department if you develop any new or worsening symptoms or become concerned for your health. Clinical Impressions Clinical Impression: Infection due to non-O157 Shiga toxin-producing Escherichia coli (E.coli), Headache, Light headedness Print Language Print Language: Bahraini Discharge ED Provider: Boom Murphy Adult HPI General Chief complaint: Dizziness Stated complaint: e coli, reaction to antibiotics Time Seen by Provider: 12/03/24 01:53 History of Present Illness HPI narrative: 29-year-old female history of prolactinoma, anxiety depression bipolar, recent diagnosis of E. coli diarrhea presents for multiple complaints. She has been taking ciprofloxacin for treatment of her diarrhea but she feels like she is having a reaction to it. She feels hazy, like she is drunk but she has not had anything to drink. Denies any alcohol or drug use. She feels like she is having trouble getting her thoughts together. She denies any numbness or weakness. Denies any fever at home. Reports a headache that is chronic for her. Related Data Home Medications ?Medication ?Instructions ?Recorded ?Confirmed clonidine HCl 0.1 mg tablet 0.1 mg PO HS PRN Insomnia 09/10/24 09/10/24 ferrous sulfate 325 mg (65 mg 325 mg PO DAILY 09/10/24 09/10/24 iron) tablet (FeroSul) fluoxetine 20 mg capsule 40 mg PO DAILY 09/10/24 09/10/24 ziprasidone HCl 80 mg capsule 80 mg PO BID 09/10/24 09/10/24 Previous Rx's ?Medication ?Instructions ?Recorded buspirone 5 mg tablet 5 mg PO BID #60 tabs 09/10/24 ondansetron 4 mg disintegrating 4 mg PO Q6H PRN nausea and 11/30/24 tablet vomiting #16 tabs ciprofloxacin HCl 750 mg tablet 750 mg PO BID 3 days #6 tabs 12/01/24 dicyclomine 20 mg tablet 20 mg PO TID #90 tabs 12/01/24 pantoprazole 40 mg tablet,delayed 40 mg PO DAILY 6 weeks #42 tabs 12/01/24 release (Protonix) promethazine 25 mg tablet 25 mg PO Q6H PRN nausea and 12/01/24 vomiting 7 days #30 tabs azithromycin 500 mg tablet 500 mg PO DAILY 5 days #5 tabs 12/03/24 promethazine 25 mg tablet 25 mg PO Q6H PRN nausea and 12/03/24 vomiting #20 tabs Allergies Allergy/AdvReac Type Severity Reaction Status Date / Time Penicillins Allergy Mild Verified 03/19/22 09:17 [facility] Disclaimer: The information contained in this section may have been updated after the patient was seen, as this information can be updated by other users. Medical History Bipolar II disorder Social History Smoking Status: Never smoker alcohol intake: never substance use type: denies use current occupational status: unemployed Travel in the last 8 weeks?: None household members: spouse housing: house number of children: 1 Other Medical History Have you received the Flu Vaccine for this season: No Have you received the Pneumonia Vaccine: No ROS Obtained: Yes All systems reviewed & no additional complaints except as documented Physical Exam General General appearance: alert and in no apparent distress Head Head exam: atraumatic and normocephalic Eye Eye exam: Present normal appearance, PERRL and EOMI ENT ENT exam: Present normal oropharynx and normal external ear exam Neck Neck exam: Present normal inspection and full ROM Chest Chest inspection: Present normal inspection and symmetric chest wall rise; Absent tenderness Respiratory Respiratory exam: Present normal lung sounds bilaterally; Absent respiratory distress Cardiovascular Cardiovascular exam: Present regular rate and normal rhythm Abdominal Exam Abdominal exam: Present soft; Absent distention, tenderness or guarding Extremities Exam Extremities exam: Present normal inspection; Absent edema or joint swelling Back Exam Back exam: Present normal inspection; Absent tenderness Neurological Exam Neurological exam: Present alert and oriented X3; Absent motor sensory deficit Psychiatric Psychiatric exam: Present normal affect and normal mood Skin Skin exam: Present warm, dry and normal color Lymphatic Lymphatic Findings: no adenopathy Medical Decision Making Medical Records Medical records reviewed: Yes I reviewed the patient's medical records. Screening: Per USPSTF and CDC recommendations, given the prevalence of disease in our region, it is our hospital?s policy to screen for HIV and viral Hepatitis for all patients aged 18 and over and those with ongoing risk factors. Jelani Inquiry Pt receiving controlled substance: No Jelani was queried for this patient: No Vital Signs: 12/03/24 02:01 12/03/24 02:16 12/03/24 02:30 Temperature 98.5 F Temperature Source Oral Pulse Rate 65 65 Pulse Rate [Right] 88 Respiratory Rate 16 Blood Pressure 137/91 H 137/89 Blood Pressure [Right Arm] 143/85 H Blood Pressure Mean [Right Arm] 104 Blood Pressure Position 02 Sat by Pulse Oximetry 98 100 100 Oxygen Delivery Method Room Air 12/03/24 03:12 12/03/24 03:13 Temperature 98.5 F 98.6 F Temperature Source Oral Oral Pulse Rate 66 76 Pulse Rate [Right] Respiratory Rate 16 16 Blood Pressure 127/84 127/84 Blood Pressure [Right Arm] Blood Pressure Mean [Right Arm] Blood Pressure Position Sitting 02 Sat by Pulse Oximetry Oxygen Delivery Method Room Air Room Air Lab Data Lab results reviewed: Yes I reviewed the patient's lab results. Lab Results 12/03/24 01:56: WBC 10.1 D, RBC 4.23, Hgb 11.1 L, Hct 35.7 L, MCV 84.4, MCH 26.2 L, MCHC 31.1 L, RDW 14.1, Plt Count 316, MPV 10.1, Neut % (Auto) 63.7, Lymph % (Auto) 27.6, Gosper % (Auto) 8.2, Eos % (Auto) 0.1, Baso % (Auto) 0.1, Neut # (Auto) 6.5, Lymph # (Auto) 2.8, Gosper # (Auto) 0.8, Eos # (Auto) 0.0, Baso # (Auto) 0.0, Sodium 139, Potassium 3.6, Chloride 103, Carbon Dioxide 25, Anion Gap 14.6, BUN 11, Creatinine 0.90, Estimated Creat Clear 122, Estimated GFR 74, Est GFR ( Amer) 90, Glucose 97, Calcium 9.2, Phosphorus 2.6, Magnesium 1.9, Total Bilirubin 0.6, AST 24, ALT 19, Alkaline Phosphatase 91, Total Protein 6.9, Albumin 4.3, Globulin 2.6, Albumin/Globulin Ratio 1.7, TSH 2.80, Thyroxine (T4) 9.2, HCV Ab MAICOL w/Rflx PCR Qn Negative, HIV Ag/Ab Combo Qual Negative 12/03/24 02:15: Urine Color Yellow, Urine Appearance Clear, Urine pH 6.5, Ur Specific [place] 1.010, Urine Protein Negative, Urine Glucose (UA) Negative, Urine Ketones Negative, Urine Blood Trace-i, Urine Nitrate Negative, Urine Bilirubin Negative, Urine Urobilinogen 0.2, Ur Leukocyte Esterase Negative, Urine RBC Occasional, Urine WBC Occasional, Ur Squamous Epith Cells Occasional, Urine Bacteria Trace 12/03/24 01:56 12/03/24 01:56 Orders (Tests/Meds): ED MEDICATIONS Discontinued Medications Generic Name Dose Route Start Last Admin Trade Name Freq PRN Reason Stop Dose Admin Azithromycin 500 mg 12/03/24 03:01 12/03/24 03:11 Azithromycin 250mg Tablet PO 12/03/24 03:02 500 mg ONCE ONE Administration Sodium Chloride 1,000 mls @ 999 mls/hr 12/03/24 02:00 12/03/24 03:14 Sod Chlor 0.9% 1000ml Bag IV 12/03/24 03:00 Infused .Q1H1M PENELOPE Infusion ORDERS Category Date Time Status CBC w/Auto Diff [Complete Blood Count Auto Diff] Stat Lab 12/03/24 01:56 Completed CMP [Comprehensive Metabolic Panel] Stat Lab 12/03/24 01:56 Completed HIV Combo Stat Lab 12/03/24 01:56 Completed Hepatitis C Ab Qual. W/ RFX Stat Lab 12/03/24 01:56 Completed Magnesium Stat Lab 12/03/24 01:56 Completed Phosphorous Stat Lab 12/03/24 01:56 Completed T4 (Thyroxine) Stat Lab 12/03/24 01:56 Completed TSH [Thyroid Stimulating Hormone] Stat Lab 12/03/24 01:56 Completed UA [Urinalysis and Microscopic] Stat Lab 12/03/24 02:15 Completed Medical Decision Narrative: 29-year-old female with history of prolactinoma, anxiety depression bipolar, recent diagnosis of E. coli diarrhea, initiated on ciprofloxacin, presents for multiple complaints, feels hazy, lightheaded, not herself. She think she is having a reaction to the ciprofloxacin. History was obtained via interactive discussion with patient, chart review. On arrival, patient is [afebrile, hemodynamically stable, satting appropriately, alert, oriented x4, GCS 15], moving all extremities spontaneously. Full physical exam performed and significant for benign abdominal exam, normal neurologic exam. Patient is alert oriented, has normal speech, answers all questions appropriately, walking without difficulty. Differential includes but is not limited to intracranial pathology, medication side effect, intoxication, withdrawal. Patient was given 1 L IV fluid bolus for symptomatic management and correction of underlying abnormalities. Workup initiated including CBC CMP mag Phos TSH T4 urinalysis. Patient has had bilateral salpingectomy.. On re-evaluation, patient [remains afebrile, HD stable.] She remains clinically normal but continues to report that she feels hazy. Laboratory workup independently interpreted by me and significant for completely normal labs, no electrolyte derangement, normal LFTs, normal thyroid studies, urinalysis without evidence of infection. Given patient's vague neurologic/psychiatric complaints, as well as her history of prolactinoma, I offered her a CT scan of the head which she declined. Given patient history, exam and workup, the underlying etiology of patient's presentation remains unclear. No evidence of serious pathology noted on labs. Physical exam is completely benign. No significant turn for meningitis or other intracranial pathology. Patient has declined further head imaging. It is possible that she is having an interaction between the ciprofloxacin and her psychiatric medications. No evidence of serotonin syndrome on exam. I discussed all these findings with patient and she was discharged in stable condition. I switched her antibiotics from ciprofloxacin to azithromycin and prescribed her Phenergan for nausea. Return precautions given. Procedures Risk/Benefits of Procedure(s) Were Explained: Yes Critical Care Critical Care Time Critical Care Time: No
--- OUTSIDE RECORDS SUMMARY | 2024-12-03 01:59 | XMS_ITS | Encounter Summary ---
[facility] Address [address] [place] [address] Care Team Providers Care Skein Tier Name Role Phone EmilyJuliocesar Santosh CHAVEZ Primary Care Provider Encounter Details Date Type Department Care Team (Late Contact Info) Description 11/09/2024 Results Follow-Up [facility] [address] [place] [address] Michelle Sullivan, TITLE AGENT [address] [facility] [address] [place] [address] Social History Tobacco Use Types Packs/Day Years Used Date Smoking Tobacco: Never Smokeless Tobacco: Never Alcohol Use Standard Drinks/Week Comments Yes 0 (1 standard drink = 0.6 oz pur e alcohol) wine occasionally [place] Depression Scale Answer Date Recorded [place] Depression Scale Total 0 12/19/2020 The thought [...] Encounters Date Type Department Care Team (Late Contact Info) Description 12/30/2024 1:00 PM EDT Office Visit [facility] [address] [facility] [address] [place] [address] Gaby Villarreal PA [address] [facility] [address] [place], [place] [id number] documented as of this encounter Visit Diagnoses Not on filedocumented in this encounter Care Teams Skein Tier Relationship Specialty Start Date End Date Juliocesar Diaz DO [address] [facility] [address] [place] [address] PCP - General Internal Medicine 11/26/22 documented as of this encounter
--- OUTSIDE RECORDS SUMMARY | 2024-12-03 01:59 | XMS_ITS | Encounter Summary ---
Author Organization [facility] Address [address] [place] [address] Care Team Providers Care Business Unit Director Name Role Phone Juliocesar Diaz DO Primary Care Provider Encounter Details Date Type Department Care Team (Late st Contact Info) Description 08/21/2024 Results Follow-Up [facility] OBGYN 1700 [facility] [address] [place] [address] Michelle Sullivan, CSR RETAIL 1700 [facility] [address] [place] [address] Social History Tobacco Use Types Packs/Day Years Used Date Smoking Tobacco: Never Smokeless Tobacco: Never Alcohol Use Standard Drinks/Week Comments Yes 0 (1 standard drink = 0.6 oz pur e alcohol) wine occasionally [place] Depression Scale Answer Date Recorded [place] Depression Scale Total 0 12/19/2020 The thought [...] Visit [facility] ENDOCRINOLOGY 3084 [facility] 100 [place] [phone] Gaby Villarreal PA [address] [facility] 100 [place], [place] [id number] documented as of this encounter Visit Diagnoses Not on filedocumented in this encounter Care Teams Business Unit Director Relationship Specialty Start Date End Date Juliocesar Diaz DO 1138 [facility] 290 [place] [address] PCP - General Internal Medicine 11/26/22 documented as of this encounter
--- OUTSIDE RECORDS SUMMARY | 2024-12-03 01:59 | XMS_ITS | Encounter Summary ---
Author Organization [facility] Address [address] [place] [address] Care Team Providers Care Parts Sales Manager Name Role Phone Emily Juliocesar Santosh CHAVEZ Primary Care Provider Encounter Details Date Type Department Care Team (Latest Contact Info) Description 12/02/2024 Travel Social History Tobacco Use Types Packs/Day Years Used Date Smoking Tobacco: Never Smokeless Tobacco: Never Alcohol Use Standard Drinks/Week Comments Yes 0 (1 standard drink = 0.6 oz pur e alcohol) wine occasionally [place] Depression Scale Answer Date Recorded [place] Depression Scale Total 0 12/19/2020 The thought [...] on file documented as of this encounter Functional Status * Calculated C-SSRS Risk Score (Lifetime/Recent) Answer Date of Assessment Author No Risk Indicated 12/02/2024 10:38 PM EDT Umm Srivastava, HAI * [place] Suicide Severity Rating Scale (Screener/Recent Self-Report) Question Answer Date of Assessment Author 1. Wish to be (Past 1 Month) No 025 10:38 PM EDUmm Moe, RN 2. Non-Specific Active Suici shay Thoughts (Past 1 Month) No 12/02/2024 10:38 PM EDT Rupinder Srivastava RN 6. Suicidal Behavior (Lifetime) No 10:38 PM EDT Umm Srivastava, RN documented as of this encounter Plan of Treatment Upcoming Encounters Date Type Department Care Team (Late st Contact Info) Description 12/30/2024 1:00 PM EDT Office Visit [facility] ENDOCRINOLOGY 3084 [facility] 100 [place] [address] Gaby Villarreal PA 3084 [facility] 100 [place] [address] documented as of this encounter Visit Diagnoses Not on filedocumented in this encounter Care Teams Parts Sales Manager Relationship Specialty Start Date End Date Juliocesar Diaz DO 1138 [facility] 290 [place] [address] PCP - General Internal Medicine 11/26/22 documented as of this encounter
--- OUTSIDE RECORDS SUMMARY | 2024-12-03 01:59 | XMS_ITS | Encounter Summary ---
Author Organization [facility] Address [address] [place] [address] Care Team Providers Care Pipe Fitter Fire Sprinkler Systems Name Role Phone Emily Juliocesar Santosh CHAVEZ Primary Care Provider Encounter Details Date Type Department Care Team (Latest Contact Info) Description 11/05/2024 Travel Social History Tobacco Use Types Packs/Day Years Used Date Smoking Tobacco: Never Smokeless Tobacco: Never Alcohol Use Standard Drinks/Week Comments Yes 0 (1 standard drink = 0.6 oz pur e alcohol) wine occasionally [place] Depression Scale Answer Date Recorded [place] Depression Scale Total 0 12/19/2020 The thought [...] 12/30/2024 1:00 PM EDT Office Visit [facility] ENDOCRINOLOGY 3084 [facility] [address] [place] [address] Gaby Villarreal PA 3084 [facility] [place] [place] [address] documented as of this encounter Visit Diagnoses Not on filedocumented in this encounter Care Teams Pipe Fitter Fire Sprinkler Systems Relationship Specialty Start Date End Date Juliocesar Diaz DO 1138 [facility] 290 [place] [address] PCP - General Internal Medicine 11/26/22 documented as of this encounter
--- OUTSIDE RECORDS SUMMARY | 2024-12-03 01:59 | XMS_ITS | Clinical Summary ---
Author Organization [facility] Address [address] [place] [address] Care Team Providers Care Universal Grinder Set Up Operator Name Role Phone Juliocesar Diaz DO Primary Care Provider Allergies Active Allergy Reactions [...] Encounters Date Type Department Care Team Description 12/02/2024 10:40 PM EDT - 12/03/2024 1:03 AM EDT Emergency [facility] EMERGENCY DEPARTMENT [address] [address] Juliocesar Nix MD Acute cystitis without hematuria (Primary Dx); Gastroenteritis; Dehydration Discharge Disposition: Home or Self Care 12/02/2024 Travel 11/09/2024 Results Follow-Up [facility] OBGYN [address] [place] [address] Michelle Sullivan APRN 11/05/2024 3:30 PM EDT Office Visit [facility] OBGYMilad [address] [place] [address] Michelle Sullivan, LG Screen for STD (sexually transmitted disease) (Primary Dx); IUD check up 11/05/2024 Travel 09/21/2024 Results Follow-Up [facility] OBGYN [place] [address] Michelle Sullivan APRN 09/11/2024 11:00 AM EDT Office Visit [facility] OBGYN [address] [address] Michelle Sullivan, DISTILLATION OPERATOR HELPER Women's annual routine gynecological examination (Primary Dx); [...] 0.6 oz pur e alcohol) wine occasionally [place] Depression Scale Answer Date Recorded [place] Depression Scale Total 0 12/19/2020 The thought [...] Mass Index 29.86 12/02/2024 10:38 PM EDT Plan of Treatment Upcoming Encounters Date Type Department Care Team (Late st Contact Info) Description 12/30/2024 1:00 PM EDT Office Visit [facility] ENDOCRINOLOGY 30[address] [facility] [address] [place] [address] Gaby Villarreal PA 3084 [facility] [address] [place] [address] Health Maintenance Due Date Last Done Comments [...] ECGs available Referred By: Confirmed By: CT HEAD WO CONTRAST STAT 12/03/2024 12:[address] ABDOMEN PELVIS W CONTRAST STAT 12/03/2024 12:02 AM EDT URINALYSIS, MICROSCOPIC ONLY STAT 12/02/2024 11:32 PM EDT URINALYSIS W/ MICROSCOPIC IF INDICATED (NO CULTURE) STAT 12/02/2024 11:32 PM EDT LIGHT BLUE TOP STAT 12/02/2024 11:03 PM EDT ROMERO TOP STAT 12/02/2024 11:03 PM EDT GOLD TOP - SST STAT 12/02/2024 11:03 PM EDT LAVENDER TOP STAT 12/02/2024 11:03 PM EDT DK GREEN TOP STAT 12/02/2024 11:03 PM EDT CBC AND DIFFERENTIAL STAT 12/02/2024 11:03 PM EDT MAGNESIUM STAT 12/02/2024 11:03 PM EDT SEDIMENTATION RATE STAT 12/02/2024 11:03 PM EDT C-REACTIVE PROTEIN STAT 12/02/2024 11:03 PM EDT CBC WITH AUTO DIFFERENTIAL STAT 12/02/2024 11:03 PM EDT HCG, QUANTITATIVE, STAT 12/02/2024 11:03 PM EDT LIPASE STAT 12/02/2024 11:03 PM EDT COMPREHENSIVE METABOLIC PANEL STAT 12/02/2024 11:03 PM EDT RAINBOW DRAW STAT 12/02/2024 11:03 PM EDT CHLAMYDIA TRACHOMATIS, NEISSERIA GONORRHOEAE, TRICHOMONAS VAGINALIS, PCR [...] Recently Relevant to Health Maintenance Results * CT Abdomen Pelvis With Contrast (12/03/2024 12:02 AM EDT) Anatomical Region Laterality Modality Abdomen, Pelvis N/A Computed Tomogra phy 12/03/2024 12:0 8 AM EDT Impressions 12/03/2024 12:11 AM EDT Impression: 1.No acute intracranial process. 2.No acute intra-abdominal or intrapelvic process. 3.Ancillary findings as described above. Electronically Signed: Ebony Raymond MD 12/03/2024 12:11 AM EDT Workstation ID: [id number] Narrative 12/03/2024 12:[address] ABDOMEN [...] MD 12/03/2024 12:11 AM EDT Workstation ID: [id number] [address] IM CT ORDERABLES Final Result * CT Head Without Contrast (12/03/2024 12:02 AM EDT) Anatomical Region Laterality Modality Head N/A Computed Tomogra phy 12/03/2024 12:0 8 AM EDT Impressions 12/03/2024 12:11 AM EDT Impression: 1.No acute intracranial process. 2.No acute intra-abdominal or intrapelvic process. 3.Ancillary findings as described above. Electronically Signed: Ebony Raymond MD 12/03/2024 12:11 AM EDT Workstation ID: [id number] Narrative 12/03/2024 12:[address] ABDOMEN [...] MD 12/03/2024 12:11 AM EDT Workstation ID: [id number] Cooper RUIZ [facility] [place] ORDERABLES Final Result * (ABNORMAL) Urinalysis, Microscopic Only - Urine, Clean Catch (12/02/2024 11:32 PM EDT) RBC, UA 3-5(A) None Seen, 0-2 /HPF 12/03/2024 12:10 AM EDT [facility] WBC, UA 6-10(A) None Seen, 0-2 /HPF 12/03/2024 12:10 AM EDT [facility] Bacteria, UA 3+(A) None Seen /HPF 12/03/2024 12:10 AM [facility] Squamous Epithelial Cells, UA 7-12(A) None Seen, 0-2 /HPF 12/03/2024 12:10 AM EDT [facility] Hyaline Casts, UA None Seen None Seen /LPF 12/03/2024 12:10 AM [facility] Mucus, UA Trace None Seen, Trace /HPF 12/03/2024 12:10 AM [facility] Methodology Manual Light Microscopy 12/03/2024 12:10 AM [facility] Urine Urine specimen obtained by clean catch procedure / Unknown Collection / Unknown 12/02/2024 11:32 PM EDT 12/02/2024 11:38 PM EDT us Juliocesar Nix MD URINE ORDERABLES Final Result [facility]
3000 [facility] [address] [place] [address], [place] * (ABNORMAL) Urinalysis With Microscopic If Indicated (No Culture) - Urine, Clean Catch (12/02/2024 11:32 PM EDT) Color, UA Yellow Yellow, Straw 12/03/2024 12:00 AM [facility] Appearance, UA Clear Clear 12/03/2024 12:00 AM [facility] pH, UA 6.5 5.0 - 8.0 12/03/2024 12:00 AM [facility] Specific [place], UA 1.025 1.005 - 1.030 12/03/2024 12:00 AM [facility] Glucose, UA Negative Negative 12/03/2024 12:00 AM [facility] Ketones, UA Negative Negative 12/03/2024 12:00 AM [facility] Bilirubin, UA Negative Negative 12/03/2024 12:00 AM EDT [facility] Blood, UA Moderate (2+)(A) Negative 12/03/2024 12:00 AM EDT [facility] Protein, UA Negative Negative 12/03/2024 12:00 AM EDT [facility] Leuk Esterase, UA Small (1+)(A) Negative 12/03/2024 12:00 AM EDT [facility] Nitrite, UA Negative Negative 12/03/2024 12:00 AM EDT [facility] Urobilinogen, UA 0.2 E.U./dL 0.2 - 1.0 E.U./dL 12/03/2024 12:00 AM EDT [facility] Urine Urine specimen obtained by clean catch procedure / Unknown Collection / Unknown 12/02/2024 11:32 PM EDT 12/02/2024 11:38 PM EDT us Juliocesar Nix MD URINE ORDERABLES Final Result [facility]
3000 [facility] [address] [place] [address], [place] * Romero Top (12/02/2024 11:03 PM EDT) Extra Tube Hold for add-ons. 12/02/2024 11:15 PM EDT [facility] Comment:Auto resulted. Blood Venipuncture / Unknown 12/02/2024 11:03 PM EDT 12/02/2024 11:10 PM EDT us Juliocesar Nix MD LAB BLOOD ORDER ONLY Final Resu lt [facility]
[address] [facility] [address] [place] [address], [place] * Gold Top - SST (12/02/2024 11:03 PM EDT) Extra Tube Hold for add-ons. 12/02/2024 11:15 PM EDT [facility] Comment:Auto resulted. Blood Venipuncture / Unknown 12/02/2024 11:03 PM EDT 12/02/2024 11:10 PM EDT Juliocesar Nix MD LAB BLOOD ORDER ONLY Final Resu lt [facility]
3000 [facility] [address] [place] [address], [place] * Green Top (Gel) (12/02/2024 11:03 PM EDT) Pathologist [facility] Extra Tube Hold for add-ons. 12/02/2024 11:15 PM EDT [facility] Comment:Auto resulted. Blood Venipuncture / Unknown 12/02/2024 11:03 PM EDT 12/02/2024 11:10 PM EDT Juliocesar Nix MD LAB BLOOD ORDER ONLY Final Resu lt [facility]
[address] [place] [address], [place] * (ABNORMAL) CBC Auto Differential (12/02/2024 11:03 PM EDT) WBC 9.66 3.40 - 10.80 10*3/mm3 12/02/2024 11:13 PM EDT [facility] RBC 4.48 3.77 - 5.28 10*6/mm3 12/02/2024 11:13 PM EDT [facility] Hemoglobin 11.6(L) 12.0 - 15.9 g/dL 12/02/2024 11:13 PM EDT [facility] Hematocrit 37.2 34.0 - 46.6 % 12/02/2024 11:13 PM EDT [facility] MCV 83.0 79.0 - 97.0 fL 12/02/2024 11:13 PM EDT [facility] MCH 25.9(L) 26.6 - 33.0 pg 12/02/2024 11:13 PM [facility] MCHC 31.2(L) 31.5 - 35.7 g/dL 12/02/2024 11:13 PM [facility] RDW 14.0 12.3 - 15.4 % 12/02/2024 11:13 PM [facility] RDW-SD 42.6 37.0 - 54.0 fl 12/02/2024 11:13 PM [facility] MPV 9.9 6.0 - 12.0 fL 12/02/2024 11:13 PM [facility] Platelets 338 140 - 450 10*3/mm3 12/02/2024 11:13 PM [facility] Neutrophil % 59.0 42.7 - 76.0 % 12/02/2024 11:13 PM [facility] Lymphocyte % 32.9 19.6 - 45.3 % 12/02/2024 11:13 PM [facility] Monocyte % 7.6 5.0 - 12.0 % 12/02/2024 11:13 PM [facility] Eosinophil % 0.2(L) 0.3 - 6.2 % 12/02/2024 11:13 PM [facility] Basophil % 0.1 0.0 - 1.5 % 12/02/2024 11:13 PM [facility] Immature Grans % 0.2 0.0 - 0.5 % 12/02/2024 11:13 PM [facility] Neutrophils, Absolute 5.70 1.70 - 7.00 10*3/mm3 12/02/2024 11:13 PM [facility] Lymphocytes, Absolute 3.18(H) 0.70 - 3.10 10*3/mm3 12/02/2024 11:13 PM [facility] Monocytes, Absolute 0.73 0.10 - 0.90 10*3/mm3 12/02/2024 11:13 PM [facility] Eosinophils, Absolute 0.02 0.00 - 0.40 10*3/mm3 12/02/2024 11:13 PM EDT [facility] Basophils, Absolute 0.01 0.00 - 0.20 10*3/mm3 12/02/2024 11:13 PM EDT [facility] Immature Grans, Absolute 0.02 0.00 - 0.05 10*3/mm3 12/02/2024 11:13 PM EDT [facility] Blood Venipuncture / Unknown 12/02/2024 11:03 PM EDT 12/02/2024 11:10 PM EDT us Juliocesar Nix MD LAB BLOOD ORDERABLES Final Resu lt [facility]
[address] [facility] [address] [place] [address], [place] * Lavender Top (12/02/2024 11:03 PM EDT) Extra Tube hold for add-on 12/02/2024 11:15 PM EDT [facility] Comment:Auto resulted Blood Venipuncture / Unknown 12/02/2024 11:03 PM EDT 12/02/2024 11:10 PM EDT us Juliocesar Nix MD LAB BLOOD ORDER ONLY Final Resu lt [facility]
[address] [facility] [address] [place] [address], [place] * Light Blue Top (12/02/2024 11:03 PM EDT) Extra Tube Hold for add-ons. 12/02/2024 11:15 PM EDT [facility] Comment:Auto resulted Blood Venipuncture / Unknown 12/02/2024 11:03 PM EDT 12/02/2024 11:10 PM EDT us Juliocesar Nix MD LAB BLOOD ORDER ONLY Final Resu lt [facility]
[address] [place] [address], [place] * (ABNORMAL) Sedimentation Rate (12/02/2024 11:03 PM EDT) Sed Rate 30(H) 0 - 20 mm/hr 12/02/2024 11:38 PM EDT [facility] Blood 12/02/2024 11:0 3 PM EDT 12/02/2024 11:36 PM EDT us Cooper RUIZ LAB BLOOD ORDERABLES Final Resul t Performing Organization Address [facility] Co de Phone Number [facility]
[address] [place] [address], [place] * C-reactive Protein (12/02/2024 11:03 PM EDT) C-Reactive Protein <0.30 0.00 - 0.50 mg/dL 12/02/2024 11:30 PM EDT [facility] Blood Venipuncture / Unknown 12/02/2024 11:03 PM EDT 12/02/2024 11:10 PM EDT us Cooper RUIZ LAB BLOOD ORDERABLES Final Resul t Performing Organization Address City/[facility] Co de Phone Number [facility]
[address] [place] [address], [place] * hCG, Quantitative, (12/02/2024 11:03 PM EDT) HCG Quantitative <0.20 mIU/mL 12/03/19 11:41 PM EDT [facility] Blood Venipuncture / Unknown 12/02/2024 11:03 PM EDT 12/02/2024 11:10 PM EDT Narrative [facility] - 12/02/2024 11:41 PM EDT HCG [...] mIU/mL 18 Weeks 8,099 - 58,176 mIU/mL us Juliocesar Nix MD LAB BLOOD ORDERABLES Final Resu lt [facility]
[address] [place] [address], [place] * Magnesium (12/02/2024 11:03 PM EDT) Magnesium 1.9 1.6 - 2.6 mg/dL 12/02/2024 11:31 PM EDT [facility] Blood Venipuncture / Unknown 12/02/2024 11:03 PM EDT 12/02/2024 11:10 PM EDT us Cooper RUIZ LAB BLOOD ORDERABLES Final Resul t [facility]
[address] [place] [address], [place] * Lipase (12/02/2024 11:03 PM EDT) Lipase 39 13 - 60 U/L 12/02/2024 11:31 PM EDT [facility] Blood Venipuncture / Unknown 12/02/2024 11:03 PM EDT 12/02/2024 11:10 PM EDT us Juliocesar Nix MD LAB BLOOD ORDERABLES Final Resu lt [facility]
[address] [facility] [address] [place] [address], [place] * (ABNORMAL) Comprehensive Metabolic Panel (12/02/2024 11:03 PM EDT) Pathologist [facility] Glucose 99 65 - 99 mg/dL 12/02/2024 11:31 PM EDT [facility] BUN 12.6 6.0 - 20.0 mg/dL 12/02/2024 11:31 PM EDT [facility] Creatinine 0.86 0.57 - 1.00 mg/dL 12/02/2024 11:31 PM EDT [facility] Sodium 139 136 - 145 mmol/L 12/02/2024 11:31 PM EDT [facility] Potassium 3.5 3.5 - 5.2 mmol/L 12/02/2024 11:31 PM EDT [facility] Chloride 103 98 - 107 mmol/L 12/02/2024 11:31 PM EDT [facility] CO2 21.7(L) 22.0 - 29.0 mmol/L 12/02/2024 11:31 PM EDT [facility] Calcium 9.1 8.6 - 10.5 mg/dL 12/02/2024 11:31 PM EDT [facility] Total Protein 7.4 6.0 - 8.5 g/dL 12/02/2024 11:31 PM EDT [facility] Albumin 4.7 3.5 - 5.2 g/dL 12/02/2024 11:31 PM EDT [facility] ALT (SGPT) 13 1 - 33 U/L 12/02/2024 11:31 PM EDT [facility] AST (SGOT) 18 1 - 32 U/L 12/02/2024 11:31 PM EDT [facility] Alkaline Phosphatase 70 39 - 117 U/L 12/02/2024 11:31 PM EDT [facility] Total Bilirubin 0.3 0.0 - 1.2 mg/dL 12/02/2024 11:31 PM EDT [facility] Globulin 2.7 gm/dL 12/02/2024 11:31 PM EDT [facility] A/G Ratio 1.7 g/dL 12/02/2024 11:31 PM EDT [facility] BUN/Creatinine Ratio 14.7 7.0 - 25.0 12/02/2024 11:31 PM EDT [facility] Anion Gap 14.3 5.0 - 15.0 mmol/L 12/02/2024 11:31 PM EDT [facility] eGFR 93.9 >60.0 mL/min/1.7 3 12/02/2024 11:31 PM EDT [facility] Blood Venipuncture / Unknown 12/02/2024 11:03 PM EDT 12/02/2024 11:10 PM EDT [facility] - 12/02/2024 11:31 PM EDT GFR [...] MD LAB BLOOD ORDERABLES Final Resu lt [facility]
[address] * Chlamydia trachomatis, Neisseria gonorrhoeae, Trichomonas vaginalis, PCR - Swab, Cervix (54:00 PM EDT) Chlamydia trachomatis, ANDRZEJ Negative Negative [facility] Gonococcus by ANDRZEJ Negative Negative [facility] Trichomonas vaginosis Negative Negative [facility] Swab Cervix uteri structure / Unknown 11/05/2024 4:00 PM EDT 11/05/2024 Comment:CX Narrative [facility] ([facility]ORY) - 11/06/2024 8:09 PM EDT Performed at: - [address] [id number] Fiction And Nonfiction Writer Prose: Tracy Gilman MD, Phone: [phone] Patient Fasting: N Michelle Sullivan DISTILLATION OPERATOR HELPER MICROBIOLOGY - GENERAL OR DERABLES Final Result [facility] (AMBULATORY) [address] [place] [address], [facility] [address] [place] [address], * LIQUID-BASED PAP SMEAR WITH HPV GENOTYPING IF ASCUS (MARLENE,COR,MAD) (09/11/2024 12:11 PM EDT) Pathologist [facility] Reference Lab Report [facility] [address] [place] [address] or [phone] Bubba Mcdermott M.D., Reservations Sales Agent PATIENT NAME LABORATORY NO[facility]NA CHASE. [id number] AGE SEX SSN CLIENT REF # [id number] ([place]) 29 1995 F [id number] Eliud SAENZ REQUESTING Flory [place] [address] MICHELLE SULLIVAN DATE COLLECTED DATE RECEIVED DATE REPORTED 09/11/2024 09/14/2024 09/19/2024 ThinPrep Pap with [employer] [facility] DIAGNOSIS: Negative for intraepithelial lesion [...] of chlamydial and gonococcal disease using the [place] system. Sendout Ancillary Vaginosis Tests ATOPOBIUM VAGINAE: [...] developed and its performance characteristics determined by [facility] It has not been cleared or approved by the U.S. Food and Drug Administration. The FDA has determined that such clearance or approval is not necessary. [facility] ([facility]) is located in [place], [place] HOSPITALITY RECRUITER: DARIEN VAZQUEZ (ASCP) CPT CODES: 04464, 22755, 41047, [id number] 09/19/2024 5:59 PM EDT [facility] ThinPrep Vial Collection / Unknown 09/11/2024 12:11 PM EDT 09/11/2024 12:11 PM EDT Michelle Sullivan APRN PATHOLOGY/CYTOLOGY ORDERA BLES Final Result [facility]
[address] [place] [address], * PAP SMEAR SCANNED (03/22/2021) Lucila Rosales APRN CHART REVIEW TABS Final Re sult [facility]
[address] [place] [address], * (ABNORMAL) Obstetric Panel (04/07/2020 5:09 PM EST) Hepatitis B Surface Ag Negative Negative [facility] Hep C Virus Ab <0.1 0.0 - 0.9 s/co ratio [facility] Comment: Negative: < 0.8 Indeterminate: 0.8 - 0.9 Positive: > 0.9 The CDC recommends that a positive HCV antibody result be followed up with a HCV Nucleic Acid Amplification test (081849). RPR Non Reactive Non Reactive [facility] [...] 04/07/2020 5:09 PM EST 04/07/2020 Narrative [facility] (AM[facility]ULATORY) - 04/20/2020 8:11 AM EST Performed at: 01 - [facility] [address] [id number] Fiction And Nonfiction Writer Prose: Juarez Gasca PhD, Phone: [phone] Patient Fasting: N Holly Sher MD LAB BLOOD ORDERABLES Final Resu lt [facility] (AMBULATORY) [address] [place] [id number], [facility] [address] [place] [address], from Last 3 Months or Most Recently [...] pulse or is breathing): Full Care Teams Universal Grinder Set Up Operator Relationship Specialty Start Date End Date Juliocesar Diaz DO [address] [facility] [address] [place] [address] PCP - General Internal Medicine 11/26/22
--- OUTSIDE RECORDS SUMMARY | 2024-12-03 01:59 | XMS_ITS | Encounter Summary ---
[facility] Organization [facility] Address [address] [place] [address] Care Team Providers Care Release Specialist Name Role Phone Juliocesar Diaz DO Primary Care Provider Reason for Visit * Reason Onset Date Comments Med Refill 05/10/2024 Encounter Details Date Type Department Care Team (Late st Contact Info) Description 05/10/2024 Refill [facility] OBGYN [address] [place] [address] Michelle Sullivan, PERFORMANCE IMPROVEMENT COORDINATOR [address] [facility] [address] [place] [address] Social History Tobacco Use Types Packs/Day Years Used Date Smoking Tobacco: Never Smokeless Tobacco: Never Alcohol Use Standard Drinks/Week Comments Yes 0 (1 standard drink = 0.6 oz pur e alcohol) wine occasionally Emery Depression Scale Answer Date Recorded Emery Depression Scale Total 0 12/19/2020 The thought [...] Description 12/30/2024 1:00 PM EDT Office Visit [facility] ENDOCRINOLOGY [address] [facility] [address] [place] [address] Gaby Villarreal PA [address] [facility] [address] [place] [address] documented as of this encounter Visit Diagnoses Not on filedocumented in this encounter Care Teams Release Specialist Relationship Specialty Start Date End Date Juliocesar Diaz DO [address] [facility] [address] [place] [address] PCP - General Internal Medicine 11/26/22 documented as of this encounter
--- OUTSIDE RECORDS SUMMARY | 2024-12-03 01:59 | XMS_ITS | Encounter Summary ---
[facility] Address [address] [place] [address] Care Team Providers Care Ditching Machine Operating Engineer Name Role Phone JaspalliudmilakeishaJuliocesar Santosh CHAVEZ Primary Care Provider Encounter Details Date Type Department Care Team (Late Contact Info) Description 09/21/2024 Results Follow-Up [facility] OBGYN [address] [place] [address] Michelle Sullivan, BUSINESS SUPPORT SPECIALIST [address] [facility] [address] [place] [address] Social History Tobacco Use Types Packs/Day Years Used Date Smoking Tobacco: Never Smokeless Tobacco: Never Alcohol Use Standard Drinks/Week Comments Yes 0 (1 standard drink = 0.6 oz pur e alcohol) wine occasionally [place] Depression Scale Answer Date Recorded [place] Depression Scale Total 0 12/19/2020 The thought [...] [facility] ENDOCRINOLOGY [address] [facility] [address] [place] [address] Gaby Villarreal PA [address] [facility] 100 [place], [place] [id number] documented as of this encounter Visit Diagnoses Not on filedocumented in this encounter Care Teams Ditching Machine Operating Engineer Relationship Specialty Start Date End Date Juliocesar Diaz DO [address] [facility] [address] [place] [address] PCP - General Internal Medicine 11/26/22 documented as of this encounter
[2024-12-03 02:01] VITALS: BP 143/85; PULSE 88; RESP 16; TEMP 36.9; O2SAT 98; BMI 30.6
[2024-12-03 02:11] LABS: Hematocrit 35.7 % (37.0-47.0); Hemoglobin 11.1 g/dL (12.2-16.2); Immature Granulocytes % 0.3 %; Mean Corpuscular HGB Conc 31.1 g/dL (31.8-35.4); Mean Corpuscular Hemoglobin 26.2 pg (27.0-31.2); Mean Corpuscular Volume 84.4 fl (81-99); Nucleated Red Blood Cells % 0 %; Platelet Count 316 K/mm3 (142-424); Red Blood Count 4.23 M/mm3 (4.20-5.40); Red Cell Distribution Width-SD 42.7 fL; White Blood Count 10.1 K/mm3 (4.8-10.8)
[2024-12-03] MEDS: 0.9 % SODIUM CHLORIDE 1000ML 1,000 ML 999 ML IV (02:13)
[2024-12-03 02:16] VITALS: BP 137/91; PULSE 65; O2SAT 100
[2024-12-03 02:17] LABS: Alanine Aminotransferase 19 U/L (12-78); Albumin Level 4.3 g/dl (3.5-5.0); Albumin/Globulin Ratio 1.7 (1.1-1.8); Alkaline Phosphatase 91 U/L (38-126); Anion Gap 14.6 mEq/L (5-15); Aspartate Amino Transferase 24 U/L (14-36); Bilirubin,Total 0.6 mg/dl (0.2-1.3); Blood Urea Nitrogen 11 mg/dl (7-17); Calcium 9.2 mg/dl (8.4-10.2); Carbon Dioxide 25 mmol/L (22.0-30.0); Chloride 103 mmol/L (98-107); Creatinine Clearance Estimated 122 mL/min (50-200); Creatinine,Serum 0.90 mg/dl (0.52-1.04); Estimated Glomerular Filt Rate 74 ml/min (>60); GFR (African American) 90 ML/MIN (>60); Globulin 2.6 g/dL (1.3-3.2); Glucose 97 mg/dl (74-100); Potassium 3.6 mmoL/L (3.5-5.1); Sodium 139 mmol/L (136-145); Total Protein,Serum 6.9 g/dl (6.3-8.2)
[2024-12-03 02:18] LABS: Microscopic, Urine URINE MICROSCOPIC (MICROSCOPIC)
[2024-12-03 02:20] LABS: Magnesium 1.9 mg/dl (1.6-2.3); Phosphorous 2.6 mg/dl (2.5-4.5)
[2024-12-03 02:20] LABS: Bilirubin,Urine Negative (Negative); Color,Urine YELLOW (Yellow); Glucose,Urine (UA) Negative (Negative); Ketones,Urine Negative (Negative); Leukocyte Esterase,Urine Negative (Negative); PH,Urine 6.5 (5.0-8.5); Protein,Urine Negative (Negative); Specific Gravity, Urine 1.010 (1.005-1.030); Urobilinogen,Urine 0.2 EU/dl (0.2)
[2024-12-03 02:30] VITALS: BP 137/89; PULSE 65; O2SAT 100
[2024-12-03 02:37] LABS: T4 (Thyroxine) 9.2 ug/dl (5.53-11.0)
[2024-12-03 02:37] LABS: Bacteria,Urine Trace /lpf; RBC,Urine Occasional #/hpf (0-3); Squamous Epithelial Cell,Urine Occasional #/hpf (0-5); WBC,Urine Occasional #/hpf (0-3)
[2024-12-03 02:51] LABS: Thyroid Stimulating Hormone 2.80 uIU/mL (0.465-4.68)
[2024-12-03] MEDS: AZITHROMYCIN 250MG TABLET 500 MG PO (03:11)
[2024-12-03 03:12] VITALS: BP 127/84; PULSE 66; RESP 16; TEMP 36.9; O2SAT 100
[2024-12-03 03:13] VITALS: BP 127/84; PULSE 76; RESP 16; TEMP 37; O2SAT 100
[2024-12-03 03:18] LABS: Hepatitis C Ab Qual. W/ RFX NEGATIVE (Negative)
== END 2024-12-03 03:14 | disposition home or self-care (01) ==
PROVIDERS: Emergency Provider Emergency Medicine
DX: R42 Dizziness and giddiness (principal); R51.9 Headache, unspecified; A04.0 Enteropathogenic Escherichia coli infection; R19.7 Diarrhea, unspecified
CPT/HCPCS: 80053; 81001; 83735; 84100; 84436; 84443; 85025; 86803; 87389; 96360; 99283; 99284; J7030